=== PATIENT | female | born 1965 | race Caucasian/White ===

== ENCOUNTER 2024-03-01 04:11 | Inpatient (IN) ==
--- NOTE | 2024-03-01 04:38 | Emergency Department Note ---
Impression & Plan Right ureteral stone ED Provider Note Provider: Santiago Domínguez MD DATE OF SERVICE: 02/29/2024 CHIEF COMPLAINT: Right flank pain kidney stone HISTORY OF PRESENT ILLNESS: Patient is a 58-year-old female history of GERD and kidney stones requiring prior stenting presenting here very early this morning reporting increasing pain overnight in the right flank region little bit of nausea. Patient states she knows she has a 6 mm kidney stone was initially diagnosed on CAT scan at [facility] this past . Seen here yesterday morning for ongoing pain. Ureteral stone present with some hydronephrosis. Is completing course of antibiotics. Saw urology team in consultation but the patient elected to go home and see if it would pass and follow-up for possible outpatient procedure. States at 11 PM last night pain began to worsen took oxycodone to Tylenol pain worsened through the night she became somewhat sweaty and nauseous but did not fall or syncopized. Reports took an additional oxycodone around 3 AM pain was still fairly severe so with her elected to come here for further pain control and likely need for urological intervention rather than waiting in the outpatient setting. Patient states at the moment the pain has moderated some she is not nearly as nauseous. PAST MEDICAL HISTORY: As noted above MEDICATIONS: Reviewed home medications FMH: Kidney stones SOCIAL HISTORY: PHYSICAL EXAM: GENERAL: alert and oriented in no acute distress on stretcher Head: normocephalic and atraumatic EYES: No injection, discharge or icterus. NECK: Trachea midline. ENT: Mucous membranes pink and moist. LUNGS: Airway patent. No retractions. Breath sounds clear HEART: Regular rate and rhythm. No chest wall tenderness ABDOMEN: Soft and non-tender, without guarding or rebound. No masses appreciable SKIN: Acyanotic, warm, dry, without rashes EXTREMITIES: Without swelling, tenderness or deformity NEUROLOGICAL: No focal deficits. No aphasia. No facial droop or slurred speech. Ambulatory. Patient's laboratory studies and imaging reviewed. Differential includes Renal colic, UTI, appendicitis, diverticulitis, mesenteric ischemia, aortic pathology, infections, inflammatory bowel disease, PUD, biliary pathology, as well as other pathologies. Review KUB per my interpretation: IMPRESSION/MEDICAL DECISION MAKING: Patient with a history of kidney stones requiring intervention recently diagnosed with 6 mm right-sided kidney stone. Has been attempting outpatient treatment without much success. Using Tylenol oxycodone at home but pain is still fluctuating. Declined admission for urological procedure yesterday at the hospital and wanted to see if she could pass it and follow-up closely in the outpatient setting for possible procedure. Given worsening pain overnight she comes back for pain control and states she is now at the point where she does not think she is able to manage this at home and feels she needs to stay and have urology evaluate her for possible stenting/intervention today. Given a bit of Toradol and Zofran and IV fluid here initially. Basic blood work checked. No significant leukocytosis. No evidence of acute UTI on UA. Given recent CT and ultrasound will avoid repeating those at this point but did order a KUB. Does appear to show unchanged position compared to KUB yesterday of the right-sided stone. Doubt this is obstruction appendicitis, cholecystitis, diverticulitis, or visceral perforation. Has been taking some Keflex but UA not impressive for infection no believe this is infected stone sepsis or requiring IV antibiotics at this point. Discussed with the patient maintaining an n.p.o. status. She states while her pain is not too bad at this point given that she is failing outpatient treatment wants to be admitted for urological intervention. Will reach out to the hospitalist team. DIAGNOSIS: Right-sided kidney stone DISPOSITION: Hospitalist will evaluate Patient was agreeable with this plan. Past Med/Surg History Problem List (Updated 03/01/24 @ 05:22 by Santiago Domínguez M.D.) Right ureteral stone (Acute) Wears hearing aid in both ears Phonak Audeo M50R disp 08/2019 Adenomatous polyps Multiple rib fractures Acid reflux disease Nephrolithiasis Essential hypertension (Chronic) Allergic rhinitis (Chronic) Hyperlipidemia (Chronic) Rosacea (Chronic) Sensorineural hearing loss (SNHL) of both ears (Chronic) Mild to moderate mid to high-frequency SNHL AU Tinnitus (Chronic) Medical History (Updated 03/01/24 @ 05:22 by Santiago Domínguez M.D.) Left ureteral stone Kidney stones Hx of squamous cell carcinoma (2013) Sleep apnea cpap at night Obesity taking metformin for weightloss Hx of colonic polyps Hyperlipidemia monitoring - "borderline" Tinnitus chronic Sensorineural hearing loss Phonak Audeo M50R disp 08/2019 GERD (gastroesophageal reflux disease) Hx pulmonary embolism (07/2016) r/t HRT - no problems since. Hypertension Surgical History Hx of squamous cell carcinoma excision (2013) Hx of cystoscopy (06/2018) with stone basketing History of lithotripsy (05/06/18) Laser lith[facility]ri[facility] at [facility] History of oophorectomy B/L History of hysterectomy History of tonsillectomy History of tooth extraction History of esophagogastroduodenoscopy (EGD) (10/11/18) History of colonoscopy 04/28/23 repeat 5yrs Family History Grandfather (Maternal) Family hx of colon cancer Father Coronary heart disease Hyperlipidemia Hypertension Cardiac disorder Mother Hypertension Hyperlipidemia Brother FHx: deafness or hearing loss Social History Smoking Status: Never smoker Second Hand Exposure: Yes ( A CHILD); Do You Dip or Chew Tobacco: No; Hx Alcohol Use: No Hx Substance Use: No Preferred Language: Telugu Communication Ability: Effective Furnace Operator And Tender Required: No Beliefs That Will Affect Care: None Current Living Situation: Spouse Feels Safe at Home: Yes Assistive Devices: CPAP, Glasses and Hearing Aid - Bilateral Allergies Allergies Allergy/AdvReac Type Severity Reaction Status Date / Time latex Allergy Mild localized Verified 02/28/24 10:21 Rash Home Meds Home Medications Medication Instructions Recorded Confirmed losartan 50 mg tablet 50 mg PO QAM 12/29/23 03/01/24 metformin 500 mg 24 hr 500 mg PO TID weightloss 02/08/24 03/01/24 tablet,extended release (gastric retention) oxycodone 5 mg tablet 5 mg PO Q6H PRN Pain 02/28/24 03/01/24 tamsulosin 0.4 mg capsule (Flomax) 0.4 mg PO DAILY 02/28/24 03/01/24 acetaminophen 500 mg tablet 500 mg PO Q6H PRN pain/fever 02/29/24 03/01/24 Previous Rx's Medication Instructions Recorded omeprazole 40 mg capsule,delayed 40 mg PO BID #180 caps 08/10/23 release cephalexin 500 mg capsule 500 mg PO QID 7 days #28 caps 02/25/24 ondansetron 4 mg disintegrating 4 mg PO Q8H PRN nausea and 02/25/24 tablet vomiting #9 tabs Results & Data (ED) Vital Signs Vital Signs - 24 hr 03/01/24 04:14 03/01/24 05:12 Temperature 36.6 C Temperature Source Temporal Artery Scan Pulse Rate 86 Pulse Rate [Finger] 77 Respiratory Rate 18 16 Respiratory Effort / Characteristics Non-Labored Respiratory Depth Normal Blood Pressure 173/95 H Blood Pressure [Right Arm] 146/80 H Blood Pressure Mean 121 Blood Pressure Mean [Right Arm] 102 Pulse Oximetry 95 99 Oxygen Delivery Method Room Air Room Air Sepsis Recent Fever Within 48 Hours No Sepsis New/Unexplained Change in Mental Status N/A Sepsis Action Taken by Nursing No Action Required Laboratory Data 03/01/24 04:36 03/01/24 04:36 Lab Results 03/01/24 03/01/24 Range/Units 04:26 04:36 WBC 7.35 (4.8-10.8) K/ul RBC 4.26 (4.20-5.40) M/uL Hgb 11.6 L (12.0-16.0) g/dl Hct 35.7 L (37.0-47.0) % MCV 83.8 (80.0-100.0) fL MCH 27.2 (25.0-34.0) pg MCHC 32.5 (32.0-36.0) g/dL RDW Std Deviation 43.8 (36.4-46.3) fL RDW Coeff of Jean 14.4 (11.5-14.5) % Plt Count 310 (130-400) K/uL MPV 9.7 (9.4-12.4) fL Immature Gran % (Auto) 0.1 % Neut % (Auto) 63.8 % Lymph % (Auto) 23.9 % [place] % (Auto) 9.0 % Eos % (Auto) 2.7 % Baso % (Auto) 0.5 % Neut # (Auto) 4.68 (1.40-6.50) K/uL Lymph # (Auto) 1.76 (1.20-3.40) K/uL [place] # (Auto) 0.66 H (0.11-0.59) K/uL Eos # (Auto) 0.20 (0.00-0.50) K/uL Baso # (Auto) 0.04 (0.00-0.20) K/uL Immature Gran # (Auto) 0.01 (0.01-0.20) K/uL Sodium 140 (136-145) mmol/L Potassium 3.9 (3.5-5.1) mmol/L Chloride 105 (98-107) mmol/L Carbon Dioxide 26 (21-32) mmol/L Anion Gap 9 (3-11) BUN 26 H (6-23) mg/dl Creatinine 1.40 H D (0.6-1.2) mg/dl Est Cr Clr Drug Dosing 45.8 ml/min Est GFR ( Amer) 47.2 ml/min Est GFR (Non-Af Amer) 40.7 ml/min BUN/Creatinine Ratio 18.6 (10-20) Glucose 95 (70-99(Fasting)) mg/dl Calcium 9.5 (8.6-10.3) mg/dl Total Bilirubin 0.5 (0.2-1.0) mg/dl AST 23 (13-39) U/L ALT 26 (7-52) U/L Alkaline Phosphatase 83 (34-104) U/L Total Protein 6.9 (6.0-8.3) gm/dl Albumin 4.3 (3.4-5.0) gm/dl Globulin 2.6 (2.5-4.0) gm/dl Albumin/Globulin Ratio 1.7 (0.9-2) Lipase 17 (11-82) U/L Urine Color Yellow Urine Appearance Clear (Clear) Urine pH 6.5 (4.5-7.5) Ur Specific [place] 1.011 (1.000-1.030) Urine Protein Negative (Negative) Urine Glucose (UA) Negative (Negative) Urine Ketones Negative (Negative) Urine Blood Negative (Negative) Urine Nitrite Negative (Negative) Urine Bilirubin Negative (Negative) Urine Urobilinogen Negative (Negative) Ur Leukocyte Esterase Trace H (Negative) Urine WBC (Auto) 0-5 (0-5) /hpf Urine RBC (Auto) 0-2 (0-2) /hpf U Hyaline Cast (Auto) 0-2 (0-2) /lpf U Epithel Cells (Auto) 0-2 (0-2) /hpf Urine Bacteria (Auto) None Seen (None Seen) Administered Medications Discontinued Medications Lactated Ringer's (Lr) 500 mls @ 999 mls/hr IV .Q31M ONE Stop: 03/01/24 05:00 Last Infusion: 03/01/24 05:21 Dose: Infused Documented By: Admin: 03/01/24 04:45 Dose: 999 mls/hr Documented By: Ketorolac Tromethamine (Ketorolac Tromethamine 15 Mg/Ml Vial) 10 mg IV NOW ONE Stop: 03/01/24 04:31 Last Admin: 03/01/24 04:49 Dose: 10 mg Documented By: Ondansetron HCl (Ondansetron Inj 2 Mg/Ml 2 Ml Vial) 4 mg IV NOW STA Stop: 03/01/24 04:31 Last Admin: 03/01/24 04:49 Dose: 4 mg Documented By: Discharge Plan Visit Data Chief Complaint: Kidney Stone Stated Complaint: KIDNEY STONE ED Provider: Santiago Domínguez Discharge Problem: Right ureteral stone Patient Disposition: Being Evaluated by Hospitalist Forms Stand Alone Forms: [facility] Prescriptions Prescriptions: No Action cephalexin 500 mg capsule 500 mg PO QID 7 Days Qty: 28 0RF Rx Instructions: [facility] ER 02/24/24 x7 day supply ondansetron 4 mg tablet,disintegrating 4 mg PO Q8H PRN (Reason: nausea and vomiting) Qty: 9 0RF Rx Instructions: [facility] ER 02/24/24 omeprazole 40 mg capsule,delayed release(DR/EC) 40 mg PO BID Qty: 180 3RF metformin 500 mg tablet,ER cinda.retention 24 hr 500 mg PO TID oxycodone 5 mg tablet 5 mg PO Q6H PRN (Reason: Pain) tamsulosin [Flomax] 0.4 mg capsule 0.4 mg PO DAILY losartan 50 mg tablet 50 mg PO QAM Rx Instructions: replaces lisinopril acetaminophen [Tylenol Ex Str Arthritis Pain] 500 mg Tablet 500 mg PO Q6H PRN (Reason: pain/fever) Referrals Referrals: Oseas Ford MD [Primary Care Provider] -
[2024-03-01] MEDS: LACTATED RINGER'S 500 ML IV ONE (04:45)
[2024-03-01] MEDS: KETOROLAC TROMETHAMINE 15 MG/ML VIAL IV ONE (04:49)
[2024-03-01] MEDS: ONDANSETRON INJ 2 MG/ML 2 ML VIAL IV STA (04:49)
[2024-03-01 04:52] LABS: Appearance Urine Clear (Clear); Bacteria Urine Automated None Seen (None Seen); Bilirubin Urine Negative (Negative); Blood Urine Negative (Negative); Cast Urine Automated 0-2 /lpf (0-2); Color Urine Yellow; Epithelial Cell Urine Auto 0-2 /hpf (0-2); Glucose Urine UA Negative (Negative); Ketones Urine Negative (Negative); Leukocyte Esterase Urine Trace (Negative); Nitrite Urine Negative (Negative); Protein Urine Negative (Negative); RBC Urine Automated 0-2 /hpf (0-2); Specific Gravity Urine 1.011 (1.000-1.030); Urobilinogen Urine Negative (Negative); WBC Urine Automated 0-5 /hpf (0-5); pH Urine 6.5 (4.5-7.5)
[2024-03-01 04:56] LABS: Basophils # (auto) 0.04 K/uL (0.00-0.20); Basophils % (auto) 0.5 %; Eosinophils % (auto) 2.7 %; Hematocrit (blood only) 35.7 % (37.0-47.0); Hemoglobin 11.6 g/dl (12.0-16.0); Immature Granulocytes # (auto) 0.01 K/uL (0.01-0.20); Immature Granulocytes % (auto) 0.1 %; Lymphocytes # (auto) 1.76 K/uL (1.20-3.40); Lymphocytes % (auto) 23.9 %; Mean Corpuscular Hemoglobin 27.2 pg (25.0-34.0); Mean Corpuscular Hgb Conc 32.5 g/dL (32.0-36.0); Mean Corpuscular Volume 83.8 fL (80.0-100.0); Mean Platelet Volume 9.7 fL (9.4-12.4); Monocytes # (auto) 0.66 K/uL (0.11-0.59); Neutrophils # (auto) 4.68 K/uL (1.40-6.50); Neutrophils % (auto) 63.8 %; Platelet Count 310 K/uL (130-400); RDW Coefficient of Variation 14.4 % (11.5-14.5); RDW Standard Deviation 43.8 fL (36.4-46.3); Red Blood Count 4.26 M/uL (4.20-5.40); White Blood Count 7.35 K/ul (4.8-10.8)
[2024-03-01 05:08] LABS: Albumin Globulin Ratio 1.7 (0.9-2); Albumin Level 4.3 gm/dl (3.4-5.0); BUN Creatinine Ratio 18.6 (10-20); Bilirubin,Total 0.5 mg/dl (0.2-1.0); Calcium 9.5 mg/dl (8.6-10.3); Creatinine Clr Calc Pharmacy 45.8 ml/min; Est GFR (African American) 47.2 ml/min; Est GFR (Non-African American) 40.7 ml/min; Globulin 2.6 gm/dl (2.5-4.0); Potassium 3.9 mmol/L (3.5-5.1); Total Protein 6.9 gm/dl (6.0-8.3)
[2024-03-01] MEDS ORDERED: HYDROmorphone INJ 0.5 MG/0.5 ML SYR IV PRN ×2 (05:51)
[2024-03-01] MEDS ORDERED: ONDANSETRON INJ 2 MG/ML 2 ML VIAL IV PRN ×2 (05:51→12:27)
[2024-03-01] MEDS ORDERED: ACETAMINOPHEN 1,000 MG/100 ML VIAL IV PRN (05:51)
--- NOTE | 2024-03-01 06:01 | History & Physical Report ---
Date of Service March 01, 2024 Assessment & Plan (1) Right ureteral stone: (2) Hydronephrosis, right: (3) Acid reflux disease: (4) Essential hypertension: (5) Obesity: (6) Sleep apnea: Plan 6 mm mid right ureteral stone/mild right hydronephrosis- Follow urine culture sensitivity NPO Acetaminophen 1 g IV every 8 hours as needed for mild pain or fever Dilaudid 0.25 mg IV every 3 hours as needed for moderate pain Dilaudid 0.5 mg IV every 3 hours as needed for severe pain Zofran 4 mg IV every 4 hours as needed Pantoprazole 40 mg IV daily Ceftriaxone 2 g IV daily NSS at 80 mL/h x 2 L Resume tamsulosin when taking p.o. Consult urology Acute kidney injury- Creatinine 1.40, with base 0.7 Hold further NSAIDs and losartan IV fluids as noted above Recheck laboratories in a.m. Hypertension- Hold losartan Hydralazine 10 mg IV every 4 hours as needed for systolic blood pressure greater than 160 GERD- Change omeprazole 40 mg p.o. twice daily to pantoprazole 40 mg IV daily Obesity- Hold metformin 500 mg p.o. 3 times daily, the patient thinks her weight loss Sleep apnea- CPAP at bedtime History of Present Illness Chief Complaint: The patient presents to the emergency department with a worsening of right flank pain, nausea without vomiting, that initially began 6 days ago, when she presented to [facility] emergency department, and was diagnosed with a 6 mm right-sided kidney stone. She was discharged home, and had been taking Tylenol and oxycodone along with Zofran. She presented to the emergency department at [facility] on 02/28 due to worsening symptoms. She received IV Toradol, and IV Dilaudid, along with IV fluids. She was seen by urology while in the emergency department, and plans were for patient to continue outpatient management, and arrangements were being made to have cystoscopy, right ureteroscopy, laser lithotripsy and right ureteral stent placement as an out patient. She was discharged from the ED on ibuprofen, tamsulosin, Zofran and Keflex. Due to worsening symptoms, the patient presents to the emergency department early in the morning of 03/01, and will be admitted to the [facility] hospitalist service with consult to urology Primary Care Provider: Oseas Ford MD The patient is a 58-year-old female with a past medical history including GERD, diabetes mellitus, hypertension, and 5 previous kidney stones. She has had a kidney stone on the left requiring a previous ureteral stent. She presents to the emergency department at [facility] with symptoms and history as noted above. Allergies Allergy/AdvReac Type Severity Reaction Status Date / Time latex Allergy Mild localized Verified 02/28/24 10:21 Rash Home Medications Medication Instructions Recorded Confirmed Type omeprazole 40 mg capsule,delayed 40 mg PO BID #180 caps 08/10/23 03/01/24 Rx release losartan 50 mg tablet 50 mg PO QAM 12/29/23 03/01/24 History metformin 500 mg 24 hr 500 mg PO TID weightloss 02/08/24 03/01/24 History tablet,extended release (gastric retention) cephalexin 500 mg capsule 500 mg PO QID 7 days #28 caps 02/25/24 03/01/24 Rx ondansetron 4 mg disintegrating 4 mg PO Q8H PRN nausea and 02/25/24 03/01/24 Rx tablet vomiting #9 tabs oxycodone 5 mg tablet 5 mg PO Q6H PRN Pain 02/28/24 03/01/24 History tamsulosin 0.4 mg capsule (Flomax) 0.4 mg PO DAILY 02/28/24 03/01/24 History acetaminophen 500 mg tablet 500 mg PO Q6H PRN pain/fever 02/29/24 03/01/24 History Past Med/Surg History Problem List (Updated 03/01/24 @ 06:16 by Familia Tariq MD) Sleep apnea cpap at night Obesity taking metformin for weightloss Hydronephrosis, right Right ureteral stone (Acute) Wears hearing aid in both ears Phonak Audeo M50R disp 08/2019 Adenomatous polyps Multiple rib fractures Acid reflux disease Nephrolithiasis Essential hypertension (Chronic) Allergic rhinitis (Chronic) Hyperlipidemia (Chronic) Rosacea (Chronic) Sensorineural hearing loss (SNHL) of both ears (Chronic) Mild to moderate mid to high-frequency SNHL AU Tinnitus (Chronic) Medical History (Updated 03/01/24 @ 06:16 by Familia Tariq MD) Left ureteral stone Kidney stones Hx of squamous cell carcinoma (2013) Hx of colonic polyps Hyperlipidemia monitoring - "borderline" Tinnitus chronic Sensorineural hearing loss Rishi Hines M50R disp 08/2019 GERD (gastroesophageal reflux disease) Hx pulmonary embolism (07/2016) r/t HRT - no problems since. Hypertension Surgical History Hx of squamous cell carcinoma excision (2013) Hx of cystoscopy (06/2018) with stone basketing History of lithotripsy (05/06/18) Laser lithotripsy at [facility] History of oophorectomy B/L History of hysterectomy History of tonsillectomy History of tooth extraction History of esophagogastroduodenoscopy (EGD) (10/11/18) History of colonoscopy 04/28/23 repeat 5yrs Family History Grandfather (Maternal) Family hx of colon cancer Father Coronary heart disease Hyperlipidemia Hypertension Cardiac disorder Mother Hypertension Hyperlipidemia Brother FHx: deafness or hearing loss Social History Smoking Status: Never smoker Second Hand Exposure: Yes ( A CHILD); Do You Dip or Chew Tobacco: No; Hx Alcohol Use: No Hx Substance Use: No Preferred Language: Mohawk Communication Ability: Effective Shape Carver Required: No Beliefs That Will Affect Care: None Current Living Situation: Spouse Feels Safe at Home: Yes Assistive Devices: CPAP, Glasses and Hearing Aid - Bilateral Review of Systems Review of Systems: The patient denies chest pain, palpitations, shortness of breath, dyspnea on exertion, cough, lower extremity swelling, sore throat, fevers, chills, sweats, vomiting, diarrhea, blood in urine or stool, lightheadedness, dizziness, headache, memory loss, loss of consciousness, rash, abnormal bruising, imbalance, focal or generalized weakness, numbness or tingling in arms or legs, generalized arthralgias or myalgias, neck pain, or night sweats. The review of systems is otherwise negative other than for that already noted above, and at least 10 systems have been reviewed. Physical Exam Physical Exam: The patient is awake, alert and oriented 3, well developed and well nourished, normocephalic and atraumatic, lying in bed and in no acute distress. HEENT--PERRL, EOMI, mucous membranes and oropharynx mildly dry. Neck--supple. No JVD. No bruits. Thyroid normal, trachea midline, no adenopathy. Heart--normal S1 and S2. No murmurs, rubs or gallops. Lungs--clear bilaterally, no respiratory distress, no accessory muscle use. Abdomen--normal bowel sounds and soft. Nontender. Nondistended, no hernias or masses, no organomegaly. Extremities--no cyanosis or clubbing. No edema. Dermatologic--normal skin turgor, normal color, no abnormal lymph nodes, no rash. Neurologic--cranial nerves II through XII grossly intact. Rheumatologic--normal range of motion. Psychiatric--normal affect. Results & Data Results & Data Vital Signs (Past 12 Hours) Vital Signs Temp Pulse Pulse Resp BP BP Pulse Ox 03/01/24 05:12 77 16 146/80 H 99 03/01/24 04:14 36.6 C 86 18 173/95 H 95 O2 Del Method 03/01/24 05:12 Room Air 03/01/24 04:14 Room Air Laboratory Results Laboratory Results WBC 7.35 K/ul (4.8-10.8) 03/01/24 04:36 RBC 4.26 M/uL (4.20-5.40) 03/01/24 04:36 Hgb 11.6 g/dl (12.0-16.0) L 03/01/24 04:36 Hct 35.7 % (37.0-47.0) L 03/01/24 04:36 MCV 83.8 fL (80.0-100.0) 03/01/24 04:36 MCH 27.2 pg (25.0-34.0) 03/01/24 04:36 MCHC 32.5 g/dL (32.0-36.0) 03/01/24 04:36 RDW Std Deviation 43.8 fL (36.4-46.3) 03/01/24 04:36 RDW Coeff of Jean 14.4 % (11.5-14.5) 03/01/24 04:36 Plt Count 310 K/uL (130-400) 03/01/24 04:36 MPV 9.7 fL (9.4-12.4) 03/01/24 04:36 Immature Gran % (Auto) 0.1 % 03/01/24 04:36 Neut % (Auto) 63.8 % 03/01/24 04:36 Lymph % (Auto) 23.9 % 03/01/24 04:36 [place] % (Auto) 9.0 % 03/01/24 04:36 Eos % (Auto) 2.7 % 03/01/24 04:36 Baso % (Auto) 0.5 % 03/01/24 04:36 Neut # (Auto) 4.68 K/uL (1.40-6.50) 03/01/24 04:36 Lymph # (Auto) 1.76 K/uL (1.20-3.40) 03/01/24 04:36 [place] # (Auto) 0.66 K/uL (0.11-0.59) H 03/01/24 04:36 Eos # (Auto) 0.20 K/uL (0.00-0.50) 03/01/24 04:36 Baso # (Auto) 0.04 K/uL (0.00-0.20) 03/01/24 04:36 Immature Gran # (Auto) 0.01 K/uL (0.01-0.20) 03/01/24 04:36 Sodium 140 mmol/L (136-145) 03/01/24 04:36 Potassium 3.9 mmol/L (3.5-5.1) 03/01/24 04:36 Chloride 105 mmol/L (98-107) 03/01/24 04:36 Carbon Dioxide 26 mmol/L (21-32) 03/01/24 04:36 Anion Gap 9 (3-11) 03/01/24 04:36 BUN 26 mg/dl (6-23) H 03/01/24 04:36 Creatinine 1.40 mg/dl (0.6-1.2) H D 03/01/24 04:36 Est Cr Clr Drug Dosing 45.8 ml/min 03/01/24 04:36 Est GFR ( Amer) 47.2 ml/min 03/01/24 04:36 Est GFR (Non-Af Amer) 40.7 ml/min 03/01/24 04:36 BUN/Creatinine Ratio 18.6 (10-20) 03/01/24 04:36 Glucose 95 mg/dl (70-99(Fasting)) 03/01/24 04:36 Calcium 9.5 mg/dl (8.6-10.3) 03/01/24 04:36 Total Bilirubin 0.5 mg/dl (0.2-1.0) 03/01/24 04:36 AST 23 U/L (13-39) 03/01/24 04:36 ALT 26 U/L (7-52) 03/01/24 04:36 Alkaline Phosphatase 83 U/L (34-104) 03/01/24 04:36 Total Protein 6.9 gm/dl (6.0-8.3) 03/01/24 04:36 Albumin 4.3 gm/dl (3.4-5.0) 03/01/24 04:36 Globulin 2.6 gm/dl (2.5-4.0) 03/01/24 04:36 Albumin/Globulin Ratio 1.7 (0.9-2) 03/01/24 04:36 Lipase 17 U/L (11-82) 03/01/24 04:36 Urine Color Yellow 03/01/24 04:26 Urine Appearance Clear (Clear) 03/01/24 04:26 Urine pH 6.5 (4.5-7.5) 03/01/24 04:26 Ur Specific [place] 1.011 (1.000-1.030) 03/01/24 04:26 Urine Protein Negative (Negative) 03/01/24 04:26 Urine Glucose (UA) Negative (Negative) 03/01/24 04:26 Urine Ketones Negative (Negative) 03/01/24 04:26 Urine Blood Negative (Negative) 03/01/24 04:26 Urine Nitrite Negative (Negative) 03/01/24 04:26 Urine Bilirubin Negative (Negative) 03/01/24 04:26 Urine Urobilinogen Negative (Negative) 03/01/24 04:26 Ur Leukocyte Esterase Trace (Negative) H 03/01/24 04:26 Urine WBC (Auto) 0-5 /hpf (0-5) 03/01/24 04:26 Urine RBC (Auto) 0-2 /hpf (0-2) 03/01/24 04:26 U Hyaline Cast (Auto) 0-2 /lpf (0-2) 03/01/24 04:26 U Epithel Cells (Auto) 0-2 /hpf (0-2) 03/01/24 04:26 Urine Bacteria (Auto) None Seen (None Seen) 03/01/24 04:26 Code Status & VTE Plan Code Status Full code VTE Prophylaxis Plan VTE Prophylaxis will be ordered: Yes PG Care Time/CCT Total # of Minutes Spent Total Time Spent with Patient: Total time spent is greater than 50% in coordination of care (as documented) at patient's floor/unit and/or counseling patient: Coding Level of Care Code 93001 INT INP/OBS CARE 3/75MIN Diagnoses Right ureteral stone N20.1 Hydronephrosis, right N13.30 Gastroesophageal reflux disease without esophagitis K21.9 Esophagitis presence: without esophagitis Essential hypertension I10 Class 1 obesity due to excess calories with serious comorbidity and body mass index (BMI) of 32.0 to 32.9 in adult E66.09; Z68.32 Obesity type: due to excess calories Obesity classification: adult class 1 (BMI 30 - 34.9) Serious obesity comorbidity presence: with serious comorbidity Body mass index: BMI 32.0-32.9 Sleep apnea G47.30 (3) Acid reflux disease Esophagitis presence: without esophagitis Qualified Code(s): K21.9 - Gastro- esophageal reflux disease without esophagitis (5) Obesity Obesity type: due to excess calories Obesity classification: adult class 1 (BMI 30 - 34.9) Serious obesity comorbidity presence: with serious comorbidity Body mass index: BMI 32.0-32.9 Qualified Code(s): E66.09 - Other obesity due to excess calories; Z68.32 - Body mass index [BMI] 32.0-32.9, adult
[2024-03-01] MEDS ORDERED: hydrALAZINE HCL 20 MG/ML VIAL IV PRN (06:19)
[2024-03-01] MEDS: PANTOprazole 40 MG in SYRINGE 0 ML IV ONE (06:21)
[2024-03-01] MEDS: cefTRIAXone SODIUM 2,000 MG/50 ML BAG IV STA (06:21)
[2024-03-01] MEDS: SODIUM CHLORIDE 0.9% 1,000 ML IV SCH (06:24)
--- NOTE | 2024-03-01 06:49 | XRay Report ---
KUB CLINICAL HISTORY: Right flank pain, kidney stone COMPARISON STUDY: KUB and renal ultrasound February 29, 2024. CT of the pelvis February 24, 2024. FINDINGS: There has been slight distal migration of a 6 mm proximal right ureteral calculus now at th e L4 level. No additional urinary calculi are present. There is no evidence for a bowel obstruction. IMPRESSION: Slight distal migration of a 6 mm proximal right ureteral calculus, now at the L4 level. ACT 112: Negative or not required by law. Electronically signed by: Herbert Childers M.D. 03/01/2024 6:47 AM
[2024-03-01] MEDS ORDERED: CARBOHYDRATES FOR HYPOGLYCEMIA PO PRN (09:49)
[2024-03-01] MEDS ORDERED: bisacodyL 10 MG SUPP PR PRN (09:49)
[2024-03-01] MEDS ORDERED: DEXTROSE 50% 50 ML SYRINGE IV PRN (09:49)
[2024-03-01] MEDS ORDERED: GLUCOSE 40% GEL 15 GM TUBE PO PRN (09:49)
[2024-03-01] MEDS ORDERED: GLUCOSE 10 TAB/TUBE PO PRN (09:49)
[2024-03-01] MEDS ORDERED: GLUCAGON FOR INJ 1 MG VIAL SQ PRN (09:49)
--- NOTE | 2024-03-01 09:59 | Urology Consultation ---
<Statement entered by Gamaliel Pritchard MD - 03/01/24 11:57> I have seen and discussed Ms Isidro's case with ЮЛИЯ Haider and agree with the above documentation. She has a right ureteral stone with poorly controlled pain at home. Due to repeat presentations to the emergency department, we will plan on cystoscopy, right retrograde pyelogram and right ureteral stent placement today. We discussed risks and benefits including risk of bleeding, infection, injury to urinary tract, need for additional procedures, inability to place stent. She expressed understanding and would like to proceed. -Gamaliel Pritchard MD. Date of Consultation March 01, 2024 Assessment & Plan (1) Right ureteral stone: (2) Hydronephrosis, right: 58 yo/F admitted for right flank pain secondary to an obstructing right ureteral calculus. She is afebrile and hemodynamically stable Labs reviewed- creatinine 1.40, WBC 7.35, Hgb 11.6 UA was not suspicious for infection Patient currently comfortable Given 3rd ER presentation for pain secondary to her right ureteral stone, we discussed surgical intervention with right ureteral stent placement She would like to proceed with intervention today Plan for cystoscopy and right ureteral stent placement Risks and benefits of procedure to be reviewed with patient by Dr. Pritchard Keep NPO for procedure She received Ceftriaxone this morning Continue supportive care and management per hospital team History of Present Illness Reason for Consultation: Right ureteral stone Attending Physician: Familia Tariq MD History of Present Illness This is a 58-year-old female with history of nephrolithiasis and recently diagnosed 6 mm obstructing right ureteral stone who returned to the emergency department today with worsening right flank pain. Patient was seen in the emergency department yesterday. She was evaluated by our service and her pain had largely resolved. She elected to go home and set up outpatient surgery, which was scheduled for next week. She was discharged to home yesterday afternoon. Patient seen and examined at bedside. present. She reports that she was doing well at home until around 11 pm. She took oxycodone and Tylenol and went back to bed, but was awakened by worsening pain around 1:30 am. Currently feeling comfortable. Denies fever or chills. No nausea or vomiting. Voiding spontaneously. She is NPO, last ate/drank yesterday around 8 pm. She was afebrile and hemodynamically stable in the ED. Labs showed creatinine 1.4, WBC 7.35, and Hgb 11.6. UA showed trace LE, otherwise unremarkable. KUB imaging showed slight distal migration of a 6 mm proximal right ureteral calculus, now at the L4 level. ED course: IV fluids, ondansetron, and Ketorolac. Allergies Allergy/AdvReac Type Severity Reaction Status Date / Time latex Allergy Mild localized Verified 02/28/24 10:21 Rash Home Medications Medication Instructions Recorded Confirmed Type omeprazole 40 mg capsule,delayed 40 mg PO BID #180 caps 08/10/23 03/01/24 Rx release losartan 50 mg tablet 50 mg PO QAM 12/29/23 03/01/24 History metformin 500 mg 24 hr 500 mg PO TID weightloss 02/08/24 03/01/24 History tablet,extended release (gastric retention) cephalexin 500 mg capsule 500 mg PO QID 7 days #28 caps 02/25/24 03/01/24 Rx ondansetron 4 mg disintegrating 4 mg PO Q8H PRN nausea and 02/25/24 03/01/24 Rx tablet vomiting #9 tabs oxycodone 5 mg tablet 5 mg PO Q6H PRN Pain 02/28/24 03/01/24 History tamsulosin 0.4 mg capsule (Flomax) 0.4 mg PO DAILY 02/28/24 03/01/24 History acetaminophen 500 mg tablet 500 mg PO Q6H PRN pain/fever 02/29/24 03/01/24 History Patient History Medical History Left ureteral stone Kidney stones Hx of squamous cell carcinoma (2013) Hx of colonic polyps Hyperlipidemia monitoring - "borderline" Tinnitus chronic Sensorineural hearing loss Phonak Audeo M50R disp 08/2019 GERD (gastroesophageal reflux disease) Hx pulmonary embolism (07/2016) r/t HRT - no problems since. Hypertension Surgical History Hx of squamous cell carcinoma excision (2013) Hx of cystoscopy (06/2018) with stone basketing History of lithotripsy (05/06/18) Laser lithotripsy at [facility] History of oophorectomy B/L History of hysterectomy History of tonsillectomy History of tooth extraction History of esophagogastroduodenoscopy (EGD) (10/11/18) History of colonoscopy 04/28/23 repeat 5yrs Family History Grandfather (Maternal) Family hx of colon cancer Father Coronary heart disease Hyperlipidemia Hypertension Cardiac disorder Mother Hypertension Hyperlipidemia Brother FHx: deafness or hearing loss Social History Smoking Status: Never smoker Second Hand Exposure: Yes ( A CHILD); Do You Dip or Chew Tobacco: No; Hx Alcohol Use: No Hx Substance Use: No Preferred Language: Nicaraguan Communication Ability: Effective Golf Course Equipment Operator Required: No Beliefs That Will Affect Care: None Current Living Situation: Spouse Feels Safe at Home: Yes Assistive Devices: None Review of Systems Review of Systems: All systems reviewed & are unremarkable except as noted in HPI & below Physical Exam Constitutional: well developed and well nourished; no acute distress Respiratory: normal respiratory effort; no respiratory distress and no labored breathing Gastrointestinal (Abdomen): Inspection/Auscultation: abdomen normal to inspection Musculoskeletal: Head/Neck/Chest: normocephalic Neurologic: moves all extremities and awake Psychiatric: Orientation: alert and oriented x 3 Results & Data Vital Signs (Past 12 Hours) Vital Signs Temp Pulse Pulse Resp BP BP Pulse Ox 03/01/24 09:50 36.6 C 67 16 112/84 96 03/01/24 09:25 03/01/24 09:16 73 18 129/79 95 03/01/24 07:00 70 18 141/93 H 93 03/01/24 05:12 77 16 146/80 H 99 03/01/24 04:14 36.6 C 86 18 173/95 H 95 O2 Del Method 03/01/24 09:50 Room Air 03/01/24 09:25 Room Air 03/01/24 09:16 Room Air 03/01/24 07:00 Room Air 03/01/24 05:12 Room Air 03/01/24 04:14 Room Air PG Care Time/CCT Total # of Minutes Spent Total Time Spent with Patient: Total time spent is greater than 50% in coordination of care (as documented) at patient's floor/unit and/or counseling patient: Coding Level of Care Code 05945 IN/OBS CONSULT LVL 4,60M Diagnoses Right ureteral stone N20.1 Hydronephrosis, right N13.30
[2024-03-01] MEDS: INSULIN ASPART PER UNIT CHARGE SC SCH (10:43)
[2024-03-01] MEDS: LACTATED RINGER'S 1,000 ML IV SCH (11:26)
[2024-03-01] MEDS ORDERED: PROPOFOL IV EMULSION 10 MG/ML 20 ML VIAL IV ONE (11:55)
[2024-03-01] MEDS ORDERED: LIDOCAINE 2% 2 ML VIAL/AMP(20MG/ML) INFIL ONE (11:55)
[2024-03-01] MEDS ORDERED: fentaNYL citrate PF 100 MCG/2 ML VIAL ONE (11:56)
[2024-03-01] MEDS ORDERED: MIDAZOLAM HCL 1 MG/ML 2ML VIAL ONE (11:56)
--- NOTE | 2024-03-01 12:21 | Anesthesiology Consultation ---
Date of Service March 01, 2024 Assessment & Plan Chart Review Chart Review: Acceptable Risk for Surgery and Patient NOT seen in Pre Admission Testing Consults Requested none History Surgery Operation Date: 03/01/24 07:00 Proposed Procedures p Cystoscopy, Right Stent Placement - Gamaliel Pritchard MD Height/Weight Height: 5 ft 4 in Weight: 81.647 kg Allergies Allergy/AdvReac Type Severity Reaction Status Date / Time latex Allergy Mild localized Verified 03/01/24 11:17 Rash Medications Home Medications Medication Instructions Recorded Confirmed Last Taken omeprazole 40 mg capsule,delayed 40 mg PO BID #180 caps 08/10/23 03/01/24 02/28/24 release losartan 50 mg tablet 50 mg PO QAM 12/29/23 03/01/24 02/28/24 metformin 500 mg 24 hr 500 mg PO TID weightloss 02/08/24 03/01/24 02/28/24 tablet,extended release (gastric retention) cephalexin 500 mg capsule 500 mg PO QID 7 days #28 caps 02/25/24 03/01/24 02/28/24 ondansetron 4 mg disintegrating 4 mg PO Q8H PRN nausea and 02/25/24 03/01/24 02/29/24 tablet vomiting #9 tabs oxycodone 5 mg tablet 5 mg PO Q6H PRN Pain 02/28/24 03/01/24 02/29/24 tamsulosin 0.4 mg capsule (Flomax) 0.4 mg PO DAILY 02/28/24 03/01/24 02/28/24 acetaminophen 500 mg tablet 500 mg PO Q6H PRN pain/fever 02/29/24 03/01/24 02/29/24 Active Medications Generic Name Dose Route Start Last Admin Trade Name Freq PRN Reason Stop Dose Admin Sodium Chloride 1,000 mls @ 80 mls/hr 03/01/24 06:00 03/01/24 06:24 Nss IV 03/02/24 06:59 80 mls/hr .[id number] CARLOS ALBERTO Administration Lactated Ringer's 1,000 mls @ 15 mls/hr 03/01/24 11:30 03/01/24 12:05 Lr IV 03/31/24 11:29 Infused .Q24H CARLOS ALBERTO Infusion Insulin Aspart 0 units 03/01/24 09:49 03/01/24 10:43 Insulin Aspart Per Unit Charge SC 03/31/24 09:48 Not Given ACHS CARLOS ALBERTO NPO Date Last Intake of Fluids: 02/29/24 Time Last Intake of Fluids: 20:00 Date Last Intake of Solids: 02/29/24 Time Last Intake of Solids: 20:00 Past Medical History Medical History Left ureteral stone Kidney stones Hx of squamous cell carcinoma (2013) Hx of colonic polyps Hyperlipidemia monitoring - "borderline" Tinnitus chronic Sensorineural hearing loss Phonak Audeo M50R disp 08/2019 GERD (gastroesophageal reflux disease) Hx pulmonary embolism (07/2016) r/t HRT - no problems since. Hypertension Past Family History Family History Grandfather (Maternal) Family hx of colon cancer Father Coronary heart disease Hyperlipidemia Hypertension Cardiac disorder Mother Hypertension Hyperlipidemia Brother FHx: deafness or hearing loss Past Surgical History Surgical History Hx of squamous cell carcinoma excision (2013) Hx of cystoscopy (06/2018) with stone basketing History of lithotripsy (05/06/18) Laser lithotripsy at [facility] History of oophorectomy B/L History of hysterectomy History of tonsillectomy History of tooth extraction History of esophagogastroduodenoscopy (EGD) (10/11/18) History of colonoscopy 04/28/23 repeat 5yrs Social History Smoking Status: Never smoker Do You Dip or Chew Tobacco: No Hx Alcohol Use: No Hx Substance Use: No substance use type: does not use Physical Exam Vital Signs Last Vital Signs Temp 36.8 C 03/01/24 11:11 Pulse 84 03/01/24 11:11 Resp 18 03/01/24 11:11 BP 168/92 H 03/01/24 11:11 Pulse Ox 96 03/01/24 11:11 O2 Del Method Room Air 03/01/24 11:11 Testing Laboratory Results 03/01/24 04:36 03/01/24 04:36 Urine Color Yellow 03/01/24 04:26 Urine Appearance Clear (Clear) 03/01/24 04:26 Urine pH 6.5 (4.5-7.5) 03/01/24 04:26 Ur Specific [place] [employer] 1.011 (1.000-1.030) 03/01/24 04:26 Urine Protein Negative (Negative) 03/01/24 04:26 Urine Glucose (UA) Negative (Negative) 03/01/24 04:26 Urine Ketones Negative (Negative) 03/01/24 04:26 Urine Nitrite Negative (Negative) 03/01/24 04:26 Ur Leukocyte Esterase Trace (Negative) H 03/01/24 04:26 Urine WBC (Auto) 0-5 /hpf (0-5) 03/01/24 04:26 Urine RBC (Auto) 0-2 /hpf (0-2) 03/01/24 04:26 U Hyaline Cast (Auto) 0-2 /lpf (0-2) 03/01/24 04:26 U Epithel Cells (Auto) 0-2 /hpf (0-2) 03/01/24 04:26 Urine Bacteria (Auto) None Seen (None Seen) 03/01/24 04:26
[2024-03-01] MEDS: DIATRIZOATE MEGLUMINE 30% 100ML VIAL INSTIL ONE (12:26)
[2024-03-01] MEDS ORDERED: ePHEDrine sulfate 50 MG/ML AMP IV PRN (12:27)
[2024-03-01] MEDS ORDERED: HYDROmorphone INJ 2 MG/ML SYR/VIAL IV PRN (12:27)
[2024-03-01] MEDS ORDERED: fentaNYL citrate PF 100 MCG/2 ML VIAL IV PRN (12:27)
[2024-03-01] MEDS ORDERED: PROMETHAZINE HCL 12.5 MG in SODIUM CHLORIDE 0.9% 50 ML IV PRN (12:27)
[2024-03-01] MEDS ORDERED: ATROPINE SULFATE 0.1 MG/ML 10ML SYR IV PRN (12:27)
[2024-03-01] MEDS ORDERED: ONDANSETRON INJ 2 MG/ML 2 ML VIAL ONE (12:34)
--- NOTE | 2024-03-01 12:34 | Operative Report ---
PG Post Operative Report Pre & Post Diagnosis Operation Date: 03/01/24 07:00 Pre-Op Diagnosis: Right Ureteral Stone Post-Op Diagnosis: Right Ureteral Stone I identified the patient and participated in the time-out.: Yes Procedure Operation Date: 03/01/24 07:00 Actual Procedures p Cystoscopy, Retragrade Pyelogram, Insertion of Right Ureteral Stent(Right) - Gamaliel Pritchard MD Surgeon Gamaliel Pritchard MD Door Operator none Estimated Blood Loss 0 Findings Consistent with Post-Op Diagnosis Specimens None Drains 6 Togolese by 24 cm double-J ureteral stent to the right ureter Anesthesia Type MAC Complications none Disposition Accompanied Patient To Recovery: Yes Disposition: Recovery Room Indications This is a 58-year-old female followed by urology for nephrolithiasis. She returned to the emergency department on 03/01 with ongoing flank pain and failure of trial of medical expulsive therapy. She presents the OR for right ureteral stent placement. Description of Procedure The patient was identified in the holding area and informed consent was confirmed. She was marked on the right side, then was taken to the operating room where anesthesia was initiated. She was placed in the dorsal lithotomy position with all pressure points appropriately padded. She was prepped and draped in the usual sterile fashion and a preoperative timeout was performed. A well-lubricated cystoscope was inserted per urethra and panendoscopy was performed. The urethra was normal in appearance. The bladder was of normal size with ureteral orifices in orthotopic position. The right ureteral orifice was identified and cannulated with a 5 Togolese open- ended catheter. A retrograde pyelogram was performed demonstrating the distal ureter was normal in course and caliber. In the mid ureter there was a filling defect conspicuous for the known stone. There was hydronephrosis of the proximal ureter and kidney. A 0.038" ZIPwire was advanced to the level of the kidney under fluoroscopic guidance. Over the wire, a 6 Togolese x 24 centimeter double-J ureteral stent was advanced. When the wire was removed, the proximal curl was visualized in the kidney with x-ray, and the distal curl visualized in the bladder with the cystoscope. At this point the bladder was drained and all instrumentation was removed. The patient was then awakened from anesthesia and was brought to the PACU in stable condition. I attest to the content of the Intraoperative Record and any orders documented therein. Any exceptions are noted below.
--- NOTE | 2024-03-01 13:02 | Anesthesiology Progress Note ---
Date of Service March 01, 2024 Anesthesia Post Procedure Vital Signs Vital Signs: Temp Pulse Pulse Pulse Resp BP BP 03/01/24 12:55 36.3 C L 74 16 120/71 03/01/24 12:45 81 20 116/71 03/01/24 12:37 36 C L 77 18 113/56 L 03/01/24 11:11 36.8 C 84 18 168/92 H 03/01/24 09:50 36.6 C 67 16 112/84 03/01/24 09:25 03/01/24 09:16 73 18 129/79 03/01/24 07:00 70 18 141/93 H 03/01/24 05:12 77 16 146/80 H 03/01/24 04:14 36.6 C 86 18 173/95 H Pulse Ox O2 Del Method O2 Flow Rate 03/01/24 12:55 97 Nasal Cannula 2 03/01/24 12:45 97 Oxymask 6 03/01/24 12:37 97 Oxymask 8 03/01/24 11:11 96 Room Air 03/01/24 09:50 96 Room Air 03/01/24 09:25 Room Air 03/01/24 09:16 95 Room Air 03/01/24 07:00 93 Room Air 03/01/24 05:12 99 Room Air 03/01/24 04:14 95 Room Air Pain Intensity Right: Pain Intensity: 0 Transfer of Care Handoff Completed per policy Notes Mental Status: alert / awake / arousable and participated in evaluation Patient Amnestic to Procedure: Yes Nausea / Vomiting: adequately controlled Pain: adequately controlled Airway Patency, RR, SpO2: stable & adequate BP & HR: stable & adequate Hydration State: stable & adequate Anesthetic Complications: no major complications apparent
[2024-03-01] MEDS: PANTOprazole 40 MG in SYRINGE 0 ML IV SCH (13:33)
--- NOTE | 2024-03-01 13:44 | Fluoroscopy Report ---
FL retrograde includes kub CLINICAL HISTORY: RT SIDE STENTright ureteral stent placement COMPARISON STUDY: KUB 03/01/2024 FLUOROSCOPY TIME: 7.9 seconds FLUOROSCOPY IMAGES: 2 EXPOSURE DOSE: 2.20 mGy FINDINGS: A right ureteral stent has been placed, the proximal portion appearing to be within satisfa ctory positioning. A subcentimeter filling defect in the right ureter at the level of L4 correlates w ith the patient's known ureteral calculus. There is persistent hydroureter. IMPRESSION: Fluoroscopic assistance as above. ACT 112: Negative or not required by law. Electronically signed by: Thuan Garrett M.D. 03/01/2024 1:43 PM
[2024-03-01 14:55] VITALS: BP 146/83; RESP 18; TEMP 98.2; O2SAT 96
[2024-03-01 15:43] VITALS: PULSE 85
--- NOTE | 2024-03-01 15:59 | Discharge Summary ---
Date of Service March 01, 2024 Admission HPI Per Admitting Provider The patient is a 58-year-old female with a past medical history including GERD, diabetes mellitus, hypertension, and 5 previous kidney stones. She has had a kidney stone on the left requiring a previous ureteral stent. She presents to the emergency department at [facility] with symptoms and history as noted above. Admission Exam Per Admitting Provider The patient is awake, alert and oriented 3, well developed and well nourished, normocephalic and atraumatic, lying in bed and in no acute distress. HEENT--PERRL, EOMI, mucous membranes and oropharynx mildly dry. Neck--supple. No JVD. No bruits. Thyroid normal, trachea midline, no adenopathy. Heart--normal S1 and S2. No murmurs, rubs or gallops. Lungs--clear bilaterally, no respiratory distress, no accessory muscle use. Abdomen--normal bowel sounds and soft. Nontender. Nondistended, no hernias or masses, no organomegaly. Extremities--no cyanosis or clubbing. No edema. Dermatologic--normal skin turgor, normal color, no abnormal lymph nodes, no rash. Neurologic--cranial nerves II through XII grossly intact. Rheumatologic--normal range of motion. Psychiatric--normal affect. Principal Diagnosis ureteral stone Discharge Exam Constitutional: well-appearing, no acute distress HEENT: NCAT, no conjunctival injection CV: clinically well perfused Resp: no increased WOB GI: non-distended MSK: no gross deformities appreciated Skin: warm, dry, no rash appreciated Neuro: alert, oriented, no focal neurologic deficit appreciated Discharge Data Allergies Allergy/AdvReac Type Severity Reaction Status Date / Time latex Allergy Mild localized Verified 03/01/24 11:17 Rash Consultations 03/01/24 05:20 ED Decision to Admit Stat 03/01/24 05:54 Consult Urology Routine Procedures Performed Operation Date: 03/01/24 07:00 Actual Procedures p Cystoscopy, Retragrade Pyelogram, Insertion of Right Ureteral Stent(Right) - Gamaliel Pritchard MD Ordered Studies 03/01/24 FL retrograde includes kub Routine Hospital Course (1) Right ureteral stone: (2) Hydronephrosis, right: (3) Acid reflux disease: (4) Essential hypertension: (5) Obesity: Plan 6 mm mid right ureteral stone/mild right hydronephrosis- tamsulosin s/p one dose CTX Urology placed stent - follow up with them in office Acute kidney injury- Creatinine 1.40, with base 0.7 Hypertension- Restart losartan at dc GERD- Change omeprazole 40 mg p.o. twice daily to pantoprazole 40 mg IV daily Sleep apnea- CPAP at bedtim Total Time Total Time Spent Total Time Spent (In Minutes): <30 Discharge Plan Discharge Items Patient Disposition: Home - Self-Care Reason For Visit: 6MM RIGHT URETERAL STONE, MILD RIGHT HYDRO, DANIELLE Discharge Diagnosis: Ureteral stone Activity: Resume your previous activity Activity Comment: as tolerated Non-emergency contact: Primary Care Provider and Urologist Call non-emergency contact if: you have any medication questions, your symptoms worsen and you have a fever Follow-up/Referrals: Oseas Ford MD [Primary Care Provider] - 03/06/24 10:30 am Diet: Regular Addtl Attending Provider Instructions: You were admitted to the hospital for ureteral stone. You were treated with pain medications and urology placed a stent. You should follow up with them in office. A discharge summary will be sent to your primary care physician to ensure continuity of care. Please bring this discharge summary with you to your next office appointment so that your provider can review it at that time. Follow-up appointments: Make a follow-up appointment with your PCP within the next week. It is very important that you follow up with them shortly after discharge from the hospital. Keep all your follow-up appointments as already scheduled. If you cannot make an appointment, notify your provider. Medications: Your medication list has been reviewed and reconciled upon discharge to ensure accuracy and continuity of care. An updated list of all your medications is included with your hospital discharge paperwork. Please review this list closely, and make note of any changes. We sent a new medication called oxybutynin to your pharmacy. Take oxybutynin (5mg) one tablet twice daily as needed for ureteral spasm. If you have any issues filling these prescriptions, please call [phone] and ask to leave a message for Dr. Zoran Lew. Take your medications as instructed; do not skip a dose of your medicines. Make sure all of your doctors know every medicine you are taking (including myxi-wvj-tvujjiy medicines, vitamins, and supplements). Call your primary care provider before taking any new medicines (including ybkj-lgm-yovmysf medicines, vitamins, and supplements), because some of these may interact with your current medications, or may make your symptoms worse. Tell your primary care provider if you cannot afford your medications. CONTACT YOUR PRIMARY CARE PROVIDER if you experience any of the following: Increased pain Fever Difficulty following your treatment plan, or difficulty taking medications CALL 911 OR GO TO THE EMERGENCY DEPARTMENT if you experience any of the following: Sudden, severe abdominal pain or nausea/vomiting Severe chest pain, or chest pain that radiates (moves) to your jaw or arm Sudden, severe shortness of breath or difficulty breathing Thank you for allowing us to participate in your care. Pending Studies at Discharge: No Stand-Alone Forms: [facility] Medications and DC Order Prescriptions: New oxybutynin chloride 5 mg tablet 5 mg PO Q6H PRN (Reason: bladder spasms) Qty: 30 0RF Continued cephalexin 500 mg capsule 500 mg PO QID 7 Days Qty: 28 0RF Rx Instructions: [facility] ER 02/24/24 x7 day supply ondansetron 4 mg tablet,disintegrating 4 mg PO Q8H PRN (Reason: nausea and vomiting) Qty: 9 0RF Rx Instructions: [facility] ER 02/24/24 omeprazole 40 mg capsule,delayed release(DR/EC) 40 mg PO BID Qty: 180 3RF metformin 500 mg tablet,ER cinda.retention 24 hr 500 mg PO TID oxycodone 5 mg tablet 5 mg PO Q6H PRN (Reason: Pain) tamsulosin [Flomax] 0.4 mg capsule 0.4 mg PO DAILY losartan 50 mg tablet 50 mg PO QAM Rx Instructions: replaces lisinopril acetaminophen 500 mg Tablet 500 mg PO Q6H PRN (Reason: pain/fever) Discharge Orders: Discharge Order (Routine); Ordered 03/01/24 Ordered By: Zoran Lew Admission Data Admit Date/Time: 03/01/24 06:00 Attending Provider: Familia Tariq Admit Provider: Familia Tariq Primary Care Provider: Oseas Ford Other Providers: Familia Tariq; Melitno Shepherd Other Interventions: Discharge Summary Assessment (RN) Last Done: 08/14/24 15:56 Supervising Physician Co-Signing Physician Notes I personally examined the patient and verified all lin points of history and exam, discussed case, and agree with decision making with Dr Lew feeling better would like to go home, urology input appreciated Vitals noted, in general she is awake and alert pleasant no distress. HEENT normocephalic atraumatic mucous membranes moist. Breathing unlabored no accessory muscle use good effort. Skin without rashes pallor or icterus. Neuro without focal deficits. Ureterolithiasisstatus post cystoscopy and stenting. Stable for home. Finishing out antibiotics previously prescribed by urology. outpt f/u w urology. Otherwise as above. Resident Activity Tracking Resident Involvement: Resident Care Provided Care Provided: Adult Hospital Medicine
--- NOTE | 2024-03-01 17:56 | Billing Data ---
Date of Service March 01, 2024 Coding Level of Care Code 74731 IN/OBS DISCH 30 MIN/LESS
[2024-03-02] MEDS ORDERED: cefTRIAXone SODIUM 2,000 MG/50 ML BAG IV SCH (06:00)
== END 2024-03-01 16:28 | disposition home or self-care (01) | DRG 661 ==
LOC: SUATTDRO → ED 04:11 → EDINP 06:00 → 3W 09:25
DX: Z68.32 Body mass index [BMI] 32.0-32.9, adult; I10 Essential (primary) hypertension; Z79.899 Other long term (current) drug therapy; Z87.442 Personal history of urinary calculi; G47.30 Sleep apnea, unspecified; N17.9 Acute kidney failure, unspecified; E78.5 Hyperlipidemia, unspecified; E66.9 Obesity, unspecified; Z79.84 Long term (current) use of oral hypoglycemic drugs; K21.9 Gastro-esophageal reflux disease without esophagitis; N13.2 Hydronephrosis with renal and ureteral calculous obstruction; E11.9 Type 2 diabetes mellitus without complications; Z91.040 Latex allergy status

== ENCOUNTER 2024-03-09 22:27 | Inpatient (IN) ==
[2024-03-09] MEDS: SODIUM CHLORIDE 0.9% 1,000 ML IV SCH (22:54)
[2024-03-09] MEDS: ACETAMINOPHEN 1,000 MG/100 ML VIAL IV STA (22:55)
[2024-03-09] MEDS: MoRPHine SULFATE 2 MG/ML CARP IV STA (22:56)
[2024-03-09] MEDS: ONDANSETRON INJ 2 MG/ML 2 ML VIAL IV STA (22:56)
[2024-03-09 23:10] LABS: Basophils # (auto) 0.03 K/uL (0.00-0.20); Basophils % (auto) 0.1 %; Hematocrit (blood only) 37.3 % (37.0-47.0); Hemoglobin 12.3 g/dl (12.0-16.0); Immature Granulocytes # (auto) 0.15 K/uL (0.01-0.20); Immature Granulocytes % (auto) 0.7 %; Lymphocytes # (auto) 1.05 K/uL (1.20-3.40); Mean Corpuscular Hemoglobin 27.3 pg (25.0-34.0); Mean Corpuscular Volume 82.9 fL (80.0-100.0); Mean Platelet Volume 9.8 fL (9.4-12.4); Monocytes # (auto) 0.97 K/uL (0.11-0.59); Monocytes % (auto) 4.6 %; Neutrophils # (auto) 18.89 K/uL (1.40-6.50); Neutrophils % (auto) 89.6 %; Platelet Count 406 K/uL (130-400); RDW Coefficient of Variation 14.2 % (11.5-14.5); RDW Standard Deviation 42.3 fL (36.4-46.3); White Blood Count 21.09 K/ul (4.8-10.8)
[2024-03-09 23:10] LABS: Appearance Urine Cloudy (Clear); Bacteria Urine Automated None Seen (None Seen); Bilirubin Urine Negative (Negative); Blood Urine 3+ (Negative); Cast Urine Automated 0-2 /lpf (0-2); Color Urine Yellow; Epithelial Cell Urine Auto 0-2 /hpf (0-2); Glucose Urine UA Negative (Negative); Ketones Urine Negative (Negative); Leukocyte Esterase Urine 2+ (Negative); Nitrite Urine Negative (Negative); Protein Urine 3+ (Negative); RBC Urine Automated >20 /hpf (0-2); Specific Gravity Urine 1.014 (1.000-1.030); Urobilinogen Urine Negative (Negative); WBC Urine Automated >50 /hpf (0-5); pH Urine 5.5 (4.5-7.5)
--- NOTE | 2024-03-09 23:11 | Emergency Department Note ---
History of Present Illness General Chief complaint: Fever Stated complaint: KIDNEY STONE REMOVAL TODAY/STINT IN, FEVER/CHILLS Time Seen by Provider: 03/09/24 22:40 History of Present Illness This is a 58-year-old female presenting to the emergency department for evaluation of fever that began around 8 PM this evening. Patient has recent medical history of ureteral calculi and did undergo laser lithotripsy this afternoon. She was doing well postprocedure and was able to go home without any difficulty. She does have oxycodone at home that she has been taking for pain. This evening she began to feel very cold and shaky, and had a high fever at home. She does not have significant head, neck, chest, or abdominal pain. She is urinating without difficulty. She rates her discomfort a 4/10. Home Medications Medication Instructions Recorded Confirmed Type omeprazole 40 mg capsule,delayed 40 mg PO BID #180 caps 08/10/23 03/09/24 Rx release losartan 50 mg tablet (Cozaar) 50 mg PO QAM 12/29/23 03/09/24 History metformin 500 mg 24 hr 500 mg PO TID weightloss 02/08/24 03/09/24 History tablet,extended release (gastric retention) ondansetron 4 mg disintegrating 4 mg PO Q8H PRN nausea and 02/25/24 03/09/24 Rx tablet vomiting #9 tabs oxycodone 5 mg tablet 5 mg PO Q6H PRN Pain 02/28/24 03/09/24 History acetaminophen 500 mg tablet 1,000 mg PO Q6H PRN pain/fever 02/29/24 03/09/24 History oxybutynin chloride 5 mg tablet 5 mg PO Q6H PRN bladder spasms #30 03/01/24 03/09/24 Rx tabs sulfamethoxazole 800 1 tab PO ONCE 1 day #1 tab 03/09/24 03/09/24 Rx mg-trimethoprim 160 mg tablet (Bactrim DS) Allergies Allergy/AdvReac Type Severity Reaction Status Date / Time latex Allergy Mild localized Verified 03/09/24 09:38 Rash Past Med/Surg History Problem List (Updated 03/10/24 @ 02:01 by Jovanny Ervin PA-C) Fever (Acute) Sepsis (Acute) Right ureteral stone (Acute) Sleep apnea cpap at night Obesity taking metformin for weightloss Wears hearing aid in both ears [employer] M50R disp 08/2019 Adenomatous polyps Multiple rib fractures 07/08/21 Acid reflux disease Nephrolithiasis Essential hypertension (Chronic) Allergic rhinitis (Chronic) Hyperlipidemia (Chronic) Rosacea (Chronic) Sensorineural hearing loss (SNHL) of both ears (Chronic) Mild to moderate mid to high-frequency SNHL AU Tinnitus (Chronic) Medical History Hydronephrosis, right Rosacea Hydronephrosis, right Allergic rhinitis Essential hypertension Acid reflux disease History of COVID-19 (2020) not hospitalized, had covid pneumonia, resolved History of pneumonia (2020) History of fracture of rib due to pneumonia/coughing - fractured multiple ribs - multiple times-last notation from 2020 Sleep apnea cpap Kidney stones Hx of squamous cell carcinoma (2013) Hx of colonic polyps Hyperlipidemia monitoring - "borderline" Tinnitus chronic/ mild Sensorineural hearing loss [employer] M50R disp 08/2019 GERD (gastroesophageal reflux disease) Hx pulmonary embolism (07/2016) r/t HRT/ premarin - no problems since. Hypertension Surgical History S/P cystoscopy with ureteral stent placement (03/01/24) multiple since 2017, most recent 03/01/24 Hx of colonoscopy with polypectomy (04/28/23) Hx of squamous cell carcinoma excision (2013) History of lithotripsy (05/06/18) Laser lithotripsy at [facility] History of oophorectomy (2012) B/L History of hysterectomy (2002) History of tonsillectomy History of tooth extraction History of esophagogastroduodenoscopy (EGD) (10/11/18) Family History Grandfather (Maternal) Family hx of colon cancer Father Coronary heart disease Hyperlipidemia Hypertension Cardiac disorder Mother Hypertension Hyperlipidemia Brother FHx: deafness or hearing loss Social History Smoking Status: Never smoker Second Hand Exposure: No; Do You Dip or Chew Tobacco: No; Hx Alcohol Use: No Hx Substance Use: No Preferred Language: Kinyarwanda Communication Ability: Effective Returned Goods Repairer Required: No Beliefs That Will Affect Care: None Current Living Situation: Spouse Feels Safe at Home: Yes Assistive Devices: None Review of Systems A total of 10 systems reviewed and were otherwise negative Physical Exam Vital Signs Vital Signs - 24 hr 03/09/24 22:30 03/09/24 22:54 03/09/24 23:00 Temperature 39.5 C H Temperature Source Oral Pulse Rate 135 H 123 H Pulse Rate [Apical] Pulse Rate from SpO2 Sensor Pulse Rhythm Regular Pulse Rhythm [Apical] Pulse Strength Normal Pulse Strength [Apical] Respiratory Rate 20 Respiratory Effort / Characteristics Non-Labored Spontaneous Respiratory Depth Normal Respiratory Pattern Regular Blood Pressure 164/89 H 139/85 Blood Pressure [Right Arm] Blood Pressure Mean 114 102 Blood Pressure Mean [Right Arm] Blood Pressure Position [Right Arm] Pulse Oximetry 92 Oxygen Delivery Method Room Air Oxygen Flow Rate Sepsis Recent Fever Within 48 Hours Yes Sepsis New/Unexplained Change in Mental Status N/A Sepsis Action Taken by Nursing No Action Required Oxygen Flow Rate - Titration Pulse Oximetry Post Tiitration 03/09/24 23:00 03/09/24 23:03 03/09/24 23:03 Temperature Temperature Source Pulse Rate 119 H Pulse Rate [Apical] Pulse Rate from SpO2 Sensor 119 H Pulse Rhythm Pulse Rhythm [Apical] Pulse Strength Pulse Strength [Apical] Respiratory Rate 26 H Respiratory Effort / Characteristics Respiratory Depth Respiratory Pattern Blood Pressure 139/85 Blood Pressure [Right Arm] Blood Pressure Mean 102 Blood Pressure Mean [Right Arm] Blood Pressure Position [Right Arm] Pulse Oximetry 93 Oxygen Delivery Method Room Air Oxygen Flow Rate 88 Sepsis Recent Fever Within 48 Hours Sepsis New/Unexplained Change in Mental Status Sepsis Action Taken by Nursing Oxygen Flow Rate - Titration 2 Pulse Oximetry Post Tiitration 93 03/09/24 23:18 03/09/24 23:25 03/09/24 23:30 Temperature 37.6 C H Temperature Source Oral Pulse Rate 114 H Pulse Rate [Apical] 113 H Pulse Rate from SpO2 Sensor 113 H Pulse Rhythm Pulse Rhythm [Apical] Regular Pulse Strength Pulse Strength [Apical] Normal Respiratory Rate 27 H 19 Respiratory Effort / Characteristics Non-Labored Respiratory Depth Normal Respiratory Pattern Regular Blood Pressure 123/77 Blood Pressure [Right Arm] 139/85 Blood Pressure Mean 89 Blood Pressure Mean [Right Arm] 103 Blood Pressure Position [Right Arm] Sitting Pulse Oximetry 94 93 Oxygen Delivery Method Nasal Cannula Oxygen Flow Rate 2 Sepsis Recent Fever Within 48 Hours Sepsis New/Unexplained Change in Mental Status Sepsis Action Taken by Nursing Oxygen Flow Rate - Titration Pulse Oximetry Post Tiitration 03/09/24 23:54 03/10/24 00:00 03/10/24 00:03 Temperature Temperature Source Pulse Rate 110 H 109 H Pulse Rate [Apical] Pulse Rate from SpO2 Sensor 110 H 109 H Pulse Rhythm Pulse Rhythm [Apical] Pulse Strength Pulse Strength [Apical] Respiratory Rate 25 H 28 H Respiratory Effort / Characteristics Respiratory Depth Respiratory Pattern Blood Pressure 115/60 Blood Pressure [Right Arm] Blood Pressure Mean 83 Blood Pressure Mean [Right Arm] Blood Pressure Position [Right Arm] Pulse Oximetry 94 93 Oxygen Delivery Method Oxygen Flow Rate Sepsis Recent Fever Within 48 Hours Sepsis New/Unexplained Change in Mental Status Sepsis Action Taken by Nursing Oxygen Flow Rate - Titration Pulse Oximetry Post Tiitration VITALS: Vitals are noted on the nurse's note and reviewed by myself. Vital signs with fever and tachycardia. GENERAL: Well-developed, well-nourished, white female, who is in no acute distress and resting comfortably. Patient is cooperative with the examination. HEAD: Normocephalic atraumatic. NECK: Supple without nuchal rigidity. No lymphadenopathy. No thyromegaly. Cervical spine is nontender. HEART: Tachycardic rate LUNGS: Clear to auscultation bilaterally without wheezes, rales or rhonchi. No retractions or accessory muscle use. ABDOMEN: Positive normal bowel sounds x 4. Soft, nontender, without masses or organomegaly. No guarding or rebound tenderness. MUSCULOSKELETAL: No muscle atrophy, erythema, or edema noted. Full range of motion in all extremities. NEURO: Patient was alert and oriented to person place and time. CN II through XII grossly intact. No focal neurological deficits. Deep tendon reflexes 2+ throughout. SKIN: The skin was without rashes, erythema, edema, or bruising. Capillary refill less than 2 seconds. Course Administered Medications Discontinued Medications Sodium Chloride (Nss) 1,000 mls @ 999 mls/hr IV .Q1H1M CARLOS ALBERTO Stop: 03/09/24 23:45 Last Infusion: 03/09/24 23:56 Dose: Infused Documented By: Admin: 03/09/24 22:54 Dose: 999 mls/hr Documented By: GABRIEL Acetaminophen (Ofirmev) 1,000 mg in 100 mls @ 400 mls/hr IV NOW STA Stop: 03/09/24 22:58 Last Infusion: 03/09/24 23:19 Dose: Infused Documented By: Admin: 03/09/24 22:55 Dose: 400 mls/hr Documented By: GABRIEL Cefepime HCl (Maxipime) 20 mls @ 5 mls/min IV ONE STA Stop: 03/09/24 23:49 Last Admin: 03/10/24 00:00 Dose: 5 mls/min Documented By: MIGUELITO Sodium Chloride (Nss) 1,000 mls @ 999 mls/hr IV .Q1H1M CARLOS ALBERTO Stop: 03/10/24 01:51 Last Admin: 03/10/24 01:06 Dose: 999 mls/hr Documented By: Infusion: 03/10/24 01:06 Dose: Infused Documented By: Admin: 03/10/24 00:00 Dose: 999 mls/hr Documented By: MIGUELITO Morphine Sulfate (Morphine Sulfate 2 Mg/Ml Carp) 2 mg IV NOW STA Stop: 03/09/24 22:48 Last Admin: 03/09/24 22:56 Dose: 2 mg Documented By: GABRIEL Ondansetron HCl (Ondansetron Inj 2 Mg/Ml 2 Ml Vial) 4 mg IV NOW STA Stop: 03/09/24 22:48 Last Admin: 03/09/24 22:56 Dose: 4 mg Documented By: GABRIEL Medical Decision Making Differential Diagnosis Differential diagnosis: Etiologies such as viral syndrome, otitis, pharyngitis, pneumonia, influenza, meningitis, urinary tract infection, septic arthritis, soft tissue infectious process, intra-abdominal process, sepsis, bacteremia, as well as others were entertained. Laboratory Data 03/09/24 22:43 03/09/24 22:43 Lab Results 03/09/24 03/09/24 03/09/24 Range/Units 22:43 22:45 23:39 WBC 21.09 H (4.8-10.8) K/ul RBC 4.50 (4.20-5.40) M/uL Hgb 12.3 (12.0-16.0) g/dl Hct 37.3 (37.0-47.0) % MCV 82.9 (80.0-100.0) fL MCH 27.3 (25.0-34.0) pg MCHC 33.0 (32.0-36.0) g/dL RDW Std Deviation 42.3 (36.4-46.3) fL RDW Coeff of Jean 14.2 (11.5-14.5) % Plt Count 406 H (130-400) K/uL MPV 9.8 (9.4-12.4) fL Immature Gran % (Auto) 0.7 % Neut % (Auto) 89.6 % Lymph % (Auto) 5.0 % Lyon % (Auto) 4.6 % Eos % (Auto) 0.0 % Baso % (Auto) 0.1 % Neut # (Auto) 18.89 H (1.40-6.50) K/uL Lymph # (Auto) 1.05 L (1.20-3.40) K/uL Lyon # (Auto) 0.97 H (0.11-0.59) K/uL Eos # (Auto) 0.00 (0.00-0.50) K/uL Baso # (Auto) 0.03 (0.00-0.20) K/uL Immature Gran # (Auto) 0.15 (0.01-0.20) K/uL Sodium 140 (136-145) mmol/L Potassium 3.6 (3.5-5.1) mmol/L Chloride 104 (98-107) mmol/L Carbon Dioxide 24 (21-32) mmol/L Anion Gap 12 H (3-11) BUN 19 (6-23) mg/dl Creatinine 0.86 (0.6-1.2) mg/dl Est Cr Clr Drug Dosing 74.0 ml/min Est GFR ( Amer) 85.1 ml/min Est GFR (Non-Af Amer) 73.4 ml/min BUN/Creatinine Ratio 22.1 H (10-20) Glucose 121 H (70-99(Fasting)) mg/dl Lactate 3.8 H* (0.4-2.0) mmol/L Calcium 9.7 (8.6-10.3) mg/dl Total Bilirubin 0.4 (0.2-1.0) mg/dl AST 18 (13-39) U/L ALT 16 (7-52) U/L Alkaline Phosphatase 76 (34-104) U/L Total Protein 7.5 (6.0-8.3) gm/dl Albumin 4.5 (3.4-5.0) gm/dl Globulin 3.0 (2.5-4.0) gm/dl Albumin/Globulin Ratio 1.5 (0.9-2) Lipase 13 (11-82) U/L Urine Color Yellow Urine Appearance Cloudy A (Clear) Urine pH 5.5 (4.5-7.5) Ur Specific Deport 1.014 (1.000-1.030) Urine Protein 3+ H (Negative) Urine Glucose (UA) Negative (Negative) Urine Ketones Negative (Negative) Urine Blood 3+ H (Negative) Urine Nitrite Negative (Negative) Urine Bilirubin Negative (Negative) Urine Urobilinogen Negative (Negative) Ur Leukocyte Esterase 2+ H (Negative) Urine WBC (Auto) >50 H (0-5) /hpf Urine RBC (Auto) >20 H (0-2) /hpf U Hyaline Cast (Auto) 0-2 (0-2) /lpf U Epithel Cells (Auto) 0-2 (0-2) /hpf Urine Bacteria (Auto) None Seen (None Seen) Adenovirus (PCR) Not Detected (NotDetected) B. pertussis DNA (PCR) Not Detected (NotDetected) B.parapertussis DNA PCR Not Detected (NotDetected) C. pneumoniae DNA (PCR) Not Detected (NotDetected) Coronavirus OC43 (PCR) Not Detected (NotDetected) Coronavirus HKU1 (PCR) Not Detected (NotDetected) Coronavirus 229E (PCR) Not Detected (NotDetected) SARS-CoV-2 (PCR) Not Detected (NotDetected) Coronavirus NL63 (PCR) Not Detected (NotDetected) Human Metapneumovir PCR Not Detected (NotDetected) Influenza Type A (PCR) Not Detected (NotDetected) Influenza Type B (PCR) Not Detected (NotDetected) M. pneumoniae (PCR) Not Detected (NotDetected) Parainfluenza 1 (PCR) Not Detected (NotDetected) Parainfluenza 2 (PCR) Not Detected (NotDetected) Parainfluenza 3 (PCR) Not Detected (NotDetected) Parainfluenza 4 (PCR) Not Detected (NotDetected) RSV (PCR) Not Detected (NotDetected) Entero/Rhino (PCR) Not Detected (NotDetected) MDM Narrative Physical exam and history were performed. Nursing notes, EMR, and Medication List were personally reviewed. No social concerns were identified as barriers to patients care. Patient appears to have fever symptoms bringing her to the ER. On arrival patient does not appear well. She is febrile and tachycardic. She does have recent surgical procedure. IV access was established and labs were obtained. She was given a sepsis fluid bolus. Blood culture x 1 was obtained. Patient's blood work is as above and was reviewed. She has a markedly elevated white blood cell count of 21,000 with associated shift. She does not have significant anemia or gross electrolyte imbalance. Lactic initially is elevated at 3.8. X-ray was performed and may show atelectasis versus pneumonia in the right lower lobe. Urine without distinct infection. Patient was given IV morphine, IV Zofran, and IV Tylenol here in the ER. On reevaluation her vitals have improved, although she is persistently tachycardic. I did reach out to Dr. Pritcahrd, on-call urologist, who was involved in the patient's procedure earlier today. Recommendation is for imaging to ensure stent is appropriately placed, as well as initiation of antibiotics. Case was additionally discussed with my attending physician, and we will start the patient on cefepime. Patient does not seem well for discharge home and escalation of care is felt to be necessary. Case was discussed with the on-call hospitalist team who agreed to evaluate the patient here in the ER. Please see their dictation for further patient course, plan, disposition. The chart was completed utilizing [employer] Speech Voice Recognition Software. Grammatical errors, random word insertions, pronoun errors, and incomplete sentences are an occasional consequence of this system due to software limitations, ambient noise, and hardware issues. Any formal questions or concerns about the content, text, or information contained within the body of this dictation should be directly addressed to the provider for clarification. Impression & Plan Sepsis, Fever Discharge Plan Visit Data Chief Complaint: Fever Stated Complaint: KIDNEY STONE REMOVAL TODAY/STINT IN, FEVER/CHILLS ED Provider: Osito Bhatia ED Midlevel Provider: Jovanny Ervin Discharge Problem: Sepsis, Fever Forms Stand Alone Forms: My [facility] Prescriptions Prescriptions: No Action ondansetron 4 mg tablet,disintegrating 4 mg PO Q8H PRN (Reason: nausea and vomiting) Qty: 9 0RF Rx Instructions: [facility] ER 02/24/24 omeprazole 40 mg capsule,delayed release(DR/EC) 40 mg PO BID Qty: 180 3RF metformin 500 mg tablet,ER cinda.retention 24 hr 500 mg PO TID oxycodone 5 mg tablet 5 mg PO Q6H PRN (Reason: Pain) losartan [Cozaar] 50 mg tablet 50 mg PO QAM Rx Instructions: replaces lisinopril oxybutynin chloride 5 mg tablet 5 mg PO Q6H PRN (Reason: bladder spasms) Qty: 30 0RF acetaminophen 500 mg Tablet 1,000 mg PO Q6H PRN (Reason: pain/fever) sulfamethoxazole-trimethoprim [Bactrim DS] 800-160 mg tablet 1 tab PO ONCE 1 Days Qty: 1 0RF Referrals Referrals: Oseas Ford MD [Primary Care Provider] -
[2024-03-09 23:27] LABS: Albumin Globulin Ratio 1.5 (0.9-2); Albumin Level 4.5 gm/dl (3.4-5.0); BUN Creatinine Ratio 22.1 (10-20); Bilirubin,Total 0.4 mg/dl (0.2-1.0); Calcium 9.7 mg/dl (8.6-10.3); Est GFR (African American) 85.1 ml/min; Est GFR (Non-African American) 73.4 ml/min; Potassium 3.6 mmol/L (3.5-5.1); Total Protein 7.5 gm/dl (6.0-8.3)
[2024-03-09] MEDS ORDERED: CEFEPIME 2,000 MG in SYRINGE 0 ML IV STA (23:30)
[2024-03-09 23:55] LABS: Adenovirus PCR Not Detected (NotDetected); Bordetella parapertussis PCR Not Detected (NotDetected); Bordetella pertussis PCR Not Detected (NotDetected); Chlamydia pneumoniae PCR Not Detected (NotDetected); Coronavirus 229E PCR Not Detected (NotDetected); Coronavirus CoV-2 (COVID19)PCR Not Detected (NotDetected); Coronavirus HKU1 PCR Not Detected (NotDetected); Coronavirus NL63 PCR Not Detected (NotDetected); Coronavirus OC43PCR Not Detected (NotDetected); Human Metapneumovirus PCR Not Detected (NotDetected); Influenza A PCR Not Detected (NotDetected); Influenza B PCR Not Detected (NotDetected); Mycoplasma pneumoniae PCR Not Detected (NotDetected); Parainfluenza Virus 1 PCR Not Detected (NotDetected); Parainfluenza Virus 2 PCR Not Detected (NotDetected); Parainfluenza Virus 3 PCR Not Detected (NotDetected); Parainfluenza Virus 4 PCR Not Detected (NotDetected); Respiratory Syncytial VirusPCR Not Detected (NotDetected); Rhinovirus/Enterovirus PCR Not Detected (NotDetected)
[2024-03-10] MEDS: CEFEPIME 20 ML IV STA
--- NOTE | 2024-03-10 00:56 | History & Physical Report ---
Date of Service March 10, 2024 Assessment & Plan (1) Sepsis: (2) Pneumonia: (3) Acute respiratory failure with hypoxia: (4) Urinary tract infection: (5) Right ureteral stone: (6) Fever: (7) Sleep apnea: (8) Acid reflux disease: (9) Essential hypertension: Plan Sepsis with fever, generalized myalgias and fatigue- Due to combination of presumptive aspiration pneumonia and UTI associated with right ureteral stent CT chest, abdomen and pelvis added to assess for sepsis For now n.p.o. except meds Hold losartan and metformin Patient received a one-time dose of Bactrim DS earlier in the day Urinary tract infection status post right stone extraction and placement of right ureteral stent- Follow urine culture and sensitivity Cefepime 2 g IV every 8 hours Status post 2 L normal saline bolus in the ED NSS + KCl 20 mill equivalents at 100 mL/h x 1 L Continue oxybutynin, add tamsulosin for the a.m. Acetaminophen 1000 mg by mouth every 6 hours as needed for mild pain or fever Continue oxycodone 5 mg by mouth every 6 hours as needed for moderate pain Add morphine 4 mg IV every 3 hours as needed for severe pain Acute respiratory failure with hypoxia/bilateral pneumonia right greater than left Possible aspiration Send a MRSA swab Continue cefepime as above Duonebs every 4 hours while awake and every 2 hours when necessary. Nasal cannula oxygen, titrate to keep pulse ox around 94% Weight loss treatment/hyperglycemia- Holding metformin Hold on Accu-Cheks with NovoLog SSI unless glucose high in the morning GERD- Continue omeprazole/pantoprazole History of Present Illness Chief Complaint: The patient presents to the emergency department with worsening right flank and pelvic pain, fever and nausea that began during the day after having a right ureteral stent placement this morning of 03/09 Primary Care Provider: Oseas Ford MD The patient is a 58-year-old female with a past medical history including sleep apnea, obesity, rib fractures, GERD, hypertension, hyperlipidemia, SNHL bilaterally, and rosacea. She underwent cystoscopy, ureteronephroscopy, basket extraction of the stone, and insertion of right stent catheter approximately 10:50 AM 03/09. She reports that her pain had improved initially postprocedure, however, as the day progressed, she became more painful, and developed a temperature to 102 F and nausea. She thus presents to the ED for assessment. She reports that this is her fifth kidney stone, and third stent in her lifetime. She also describes some generalized muscle aches and fatigue Allergies Allergy/AdvReac Type Severity Reaction Status Date / Time latex Allergy Mild localized Verified 03/09/24 09:38 Rash Home Medications Medication Instructions Recorded Confirmed Type omeprazole 40 mg capsule,delayed 40 mg PO BID #180 caps 08/10/23 03/09/24 Rx release losartan 50 mg tablet (Cozaar) 50 mg PO QAM 12/29/23 03/09/24 History metformin 500 mg 24 hr 500 mg PO TID weightloss 02/08/24 03/09/24 History tablet,extended release (gastric retention) ondansetron 4 mg disintegrating 4 mg PO Q8H PRN nausea and 02/25/24 03/09/24 Rx tablet vomiting #9 tabs oxycodone 5 mg tablet 5 mg PO Q6H PRN Pain 02/28/24 03/09/24 History acetaminophen 500 mg tablet 1,000 mg PO Q6H PRN pain/fever 02/29/24 03/09/24 History oxybutynin chloride 5 mg tablet 5 mg PO Q6H PRN bladder spasms #30 03/01/24 03/09/24 Rx tabs sulfamethoxazole 800 1 tab PO ONCE 1 day #1 tab 03/09/24 03/09/24 Rx mg-trimethoprim 160 mg tablet (Bactrim DS) Past Med/Surg History Problem List (Updated 03/10/24 @ 02:42 by Familia Tariq MD) Pneumonia Acute respiratory failure with hypoxia Urinary tract infection Fever (Acute) Sepsis (Acute) Right ureteral stone (Acute) Sleep apnea cpap at night Obesity taking metformin for weightloss Wears hearing aid in both ears Phonak Audeo M50R disp 08/2019 Adenomatous polyps Multiple rib fractures 07/08/21 Acid reflux disease Nephrolithiasis Essential hypertension (Chronic) Allergic rhinitis (Chronic) Hyperlipidemia (Chronic) Rosacea (Chronic) Sensorineural hearing loss (SNHL) of both ears (Chronic) Mild to moderate mid to high-frequency SNHL AU Tinnitus (Chronic) Medical History Hydronephrosis, right Rosacea Hydronephrosis, right Allergic rhinitis Essential hypertension Acid reflux disease History of COVID-19 (2020) not hospitalized, had covid pneumonia, resolved History of pneumonia (2020) History of fracture of rib due to pneumonia/coughing - fractured multiple ribs - multiple times-last notation from 2020 Sleep apnea cpap Kidney stones Hx of squamous cell carcinoma (2013) Hx of colonic polyps Hyperlipidemia monitoring - "borderline" Tinnitus chronic/ mild Sensorineural hearing loss Phonantonieta Hines M50R disp 08/2019 GERD (gastroesophageal reflux disease) Hx pulmonary embolism (07/2016) r/t HRT/ premarin - no problems since. Hypertension Surgical History S/P cystoscopy with ureteral stent placement (03/01/24) multiple since 2017, most recent 03/01/24 Hx of colonoscopy with polypectomy (04/28/23) Hx of squamous cell carcinoma excision (2013) History of lithotripsy (05/06/18) [facility]otripsy at [facility] History of oophorectomy (2012) B/L History of hysterectomy (2002) History of tonsillectomy History of tooth extraction History of esophagogastroduodenoscopy (EGD) (10/11/18) Family History Grandfather (Maternal) Family hx of colon cancer Father Coronary heart disease Hyperlipidemia Hypertension Cardiac disorder Mother Hypertension Hyperlipidemia Brother FHx: deafness or hearing loss Social History Smoking Status: Never smoker Second Hand Exposure: No; Do You Dip or Chew Tobacco: No; Hx Alcohol Use: No Hx Substance Use: No Preferred Language: Yoruba Communication Ability: Effective International Relations Professor Required: No Beliefs That Will Affect Care: None Current Living Situation: Spouse Feels Safe at Home: Yes Assistive Devices: None Review of Systems Review of Systems: The patient denies chest pain, palpitations, cough, lower extremity swelling, sore throat, chills, sweats, vomiting, diarrhea , constipation, abdominal pain, pelvic pain, blood in urine or stool, dysuria, urinary frequency or urgency, lightheadedness, dizziness, headache, memory loss, loss of consciousness, rash, abnormal bruising or bleeding, imbalance, focal weakness, numbness or tingling in arms or legs, neck pain, or night sweats. The review of systems is otherwise negative other than for that already noted above, and at least 10 systems have been reviewed. Physical Exam Physical Exam: The patient is awake, alert and oriented 3, well developed and well nourished, normocephalic and atraumatic, lying in bed and in no acute distress. HEENT--PERRL, EOMI, mucous membranes and oropharynx mildly dry. Neck--supple. No JVD. No bruits. Thyroid normal, trachea midline, no adenopathy. Heart--normal S1 and S2. No murmurs, rubs or gallops. Lungs--decreased breath sounds throughout. No respiratory distress, no accessory muscle use. Abdomen--normal bowel sounds and soft. Nontender. Nondistended, no hernias or masses, no organomegaly. Extremities--no cyanosis or clubbing. No edema. Dermatologic--normal skin turgor, normal color, no abnormal lymph nodes, no rash. Neurologic--cranial nerves II through XII grossly intact. Rheumatologic--normal range of motion. Psychiatric--normal affect. Results & Data Results & Data Vital Signs (Past 12 Hours) Vital Signs Temp Pulse Pulse Resp BP BP Pulse Ox 03/10/24 00:03 109 H 28 H 93 03/10/24 00:00 115/60 03/09/24 23:54 110 H 25 H 94 03/09/24 23:30 123/77 03/09/24 23:25 37.6 C H 113 H 19 139/85 93 03/09/24 23:18 114 H 27 H 94 03/09/24 23:03 119 H 26 H 93 03/09/24 23:03 03/09/24 23:00 139/85 03/09/24 23:00 139/85 03/09/24 22:54 123 H 03/09/24 22:30 39.5 C H 135 H 20 164/89 H 92 O2 Del Method O2 Flow Rate 03/10/24 00:03 03/10/24 00:00 03/09/24 23:54 03/09/24 23:30 03/09/24 23:25 Nasal Cannula 2 03/09/24 23:18 03/09/24 23:03 03/09/24 23:03 Room Air 88 03/09/24 23:00 03/09/24 23:00 03/09/24 22:54 03/09/24 22:30 Room Air Laboratory Results Laboratory Results WBC 21.09 K/ul (4.8-10.8) H 03/09/24 22:43 RBC 4.50 M/uL (4.20-5.40) 03/09/24 22:43 Hgb 12.3 g/dl (12.0-16.0) 03/09/24 22:43 Hct 37.3 % (37.0-47.0) 03/09/24 22:43 MCV 82.9 fL (80.0-100.0) 03/09/24 22:43 MCH 27.3 pg (25.0-34.0) 03/09/24 22:43 MCHC 33.0 g/dL (32.0-36.0) 03/09/24 22:43 RDW Std Deviation 42.3 fL (36.4-46.3) 03/09/24 22:43 RDW Coeff of Jean 14.2 % (11.5-14.5) 03/09/24 22:43 Plt Count 406 K/uL (130-400) H 03/09/24 22:43 MPV 9.8 fL (9.4-12.4) 03/09/24 22:43 Immature Gran % (Auto) 0.7 % 03/09/24 22:43 Neut % (Auto) 89.6 % 03/09/24 22:43 Lymph % (Auto) 5.0 % 03/09/24 22:43 [place] % (Auto) 4.6 % 03/09/24 22:43 Eos % (Auto) 0.0 % 03/09/24 22:43 Baso % (Auto) 0.1 % 03/09/24 22:43 Neut # (Auto) 18.89 K/uL (1.40-6.50) H 03/09/24 22:43 Lymph # (Auto) 1.05 K/uL (1.20-3.40) L 03/09/24 22:43 [place] # (Auto) 0.97 K/uL (0.11-0.59) H 03/09/24 22:43 Eos # (Auto) 0.00 K/uL (0.00-0.50) 03/09/24 22:43 Baso # (Auto) 0.03 K/uL (0.00-0.20) 03/09/24 22:43 Immature Gran # (Auto) 0.15 K/uL (0.01-0.20) 03/09/24 22:43 Sodium 140 mmol/L (136-145) 03/09/24 22:43 Potassium 3.6 mmol/L (3.5-5.1) 03/09/24 22:43 Chloride 104 mmol/L (98-107) 03/09/24 22:43 Carbon Dioxide 24 mmol/L (21-32) 03/09/24 22:43 Anion Gap 12 (3-11) H 03/09/24 22:43 BUN 19 mg/dl (6-23) 03/09/24 22:43 Creatinine 0.86 mg/dl (0.6-1.2) 03/09/24 22:43 Est Cr Clr Drug Dosing 74.0 ml/min 03/09/24 22:43 Est GFR ( Amer) 85.1 ml/min 03/09/24 22:43 Est GFR (Non-Af Amer) 73.4 ml/min 03/09/24 22:43 BUN/Creatinine Ratio 22.1 (10-20) H 03/09/24 22:43 Glucose 121 mg/dl (70-99(Fasting)) H 03/09/24 22:43 Lactate 3.8 mmol/L (0.4-2.0) H* 03/09/24 23:39 Calcium 9.7 mg/dl (8.6-10.3) 03/09/24 22:43 Total Bilirubin 0.4 mg/dl (0.2-1.0) 03/09/24 22:43 AST 18 U/L (13-39) 03/09/24 22:43 ALT 16 U/L (7-52) 03/09/24 22:43 Alkaline Phosphatase 76 U/L (34-104) 03/09/24 22:43 Total Protein 7.5 gm/dl (6.0-8.3) 03/09/24 22:43 Albumin 4.5 gm/dl (3.4-5.0) 03/09/24 22:43 Globulin 3.0 gm/dl (2.5-4.0) 03/09/24 22:43 Albumin/Globulin Ratio 1.5 (0.9-2) 03/09/24 22:43 Lipase 13 U/L (11-82) 03/09/24 22:43 Urine Color Yellow 03/09/24 22:45 Urine Appearance Cloudy (Clear) A 03/09/24 22:45 Urine pH 5.5 (4.5-7.5) 03/09/24 22:45 Ur Specific [place] 1.014 (1.000-1.030) 03/09/24 22:45 Urine Protein 3+ (Negative) H 03/09/24 22:45 Urine Glucose (UA) Negative (Negative) 03/09/24:45 Urine Ketones Negative (Negative) 03/09/24:45 Urine Blood 3+ (Negative) H 03/09/24 22:45 Urine Nitrite Negative (Negative) 03/09/24 22:45 Urine Bilirubin Negative (Negative) 03/09/24:45 Urine Urobilinogen Negative (Negative) 03/09/24 22:45 Ur Leukocyte Esterase 2+ (Negative) H 03/09/24 22:45 Urine WBC (Auto) >50 /hpf (0-5) H 03/09/24 22:45 Urine RBC (Auto) >20 /hpf (0-2) H 03/09/24 22:45 U Hyaline Cast (Auto) 0-2 /lpf (0-2) 03/09/24 22:45 U Epithel Cells (Auto) 0-2 /hpf (0-2) 03/09/24 22:45 Urine Bacteria (Auto) None Seen (None Seen) 03/09/24 22:45 Adenovirus (PCR) Not Detected (NotDetected) 03/09/24 22:45 B. pertussis DNA (PCR) Not Detected (NotDetected) 03/09/24 22:45 B.parapertussis DNA PCR Not Detected (NotDetected) 03/09/24 22:45 C. pneumoniae DNA (PCR) Not Detected (NotDetected) 03/09/24 22:45 Coronavirus OC43 (PCR) Not Detected (NotDetected) 03/09/24 22:45 Coronavirus HKU1 (PCR) Not Detected (NotDetected) 03/09/24 22:45 Coronavirus 229E (PCR) Not Detected (NotDetected) 03/09/24 22:45 SARS-CoV-2 (PCR) Not Detected (NotDetected) 03/09/24 22:45 Coronavirus NL63 (PCR) Not Detected (NotDetected) 03/09/24 22:45 Human Metapneumovir PCR Not Detected (NotDetected) 03/09/24 22:45 Influenza Type A (PCR) Not Detected (NotDetected) 03/09/24 22:45 Influenza Type B (PCR) Not Detected (NotDetected) 03/09/24 22:45 M. pneumoniae (PCR) Not Detected (NotDetected) 03/09/24 22:45 Parainfluenza 1 (PCR) Not Detected (NotDetected) 03/09/24 22:45 Parainfluenza 2 (PCR) Not Detected (NotDetected) 03/09/24 22:45 Parainfluenza 3 (PCR) Not Detected (NotDetected) 03/09/24 22:45 Parainfluenza 4 (PCR) Not Detected (NotDetected) 03/09/24 22:45 RSV (PCR) Not Detected (NotDetected) 03/09/24 22:45 Entero/Rhino (PCR) Not Detected (NotDetected) 03/09/24 22:45 Code Status & VTE Plan Code Status Full code VTE Prophylaxis Plan VTE Prophylaxis will be ordered: Yes PG Care Time/CCT Total # of Minutes Spent Total Time Spent with Patient: Total time spent is greater than 50% in coordination of care (as documented) at patient's floor/unit and/or counseling patient: Coding Level of Care Code 53243 INT INP/OBS CARE 3/75MIN Diagnoses Sepsis A41.9 Pneumonia J18.9 Acute respiratory failure with hypoxia J96.01 Urinary tract infection N39.0 Right ureteral stone N20.1 Fever R50.9 Sleep apnea G47.30 Gastroesophageal reflux disease without esophagitis K21.9 Esophagitis presence: without esophagitis Essential hypertension I10 (8) Acid reflux disease Esophagitis presence: without esophagitis Qualified Code(s): K21.9 - Gastro- esophageal reflux disease without esophagitis
[2024-03-10] MEDS ORDERED: oxyBUTYnin chloride 5 MG TAB PO PRN (02:14)
[2024-03-10] MEDS ORDERED: SULFAMETHOXAZOLE/TRIMETHOPRIM DS 800/160MG TAB PO SCH (02:14)
[2024-03-10] MEDS: MoRPHine SULFATE 4 MG/ML 1 ML CARP\\VIAL IV PRN (02:38)
[2024-03-10 02:53] LABS: Hematocrit (blood only) 35.3 % (37.0-47.0); Hemoglobin 11.3 g/dl (12.0-16.0); Mean Corpuscular Hemoglobin 27.3 pg (25.0-34.0); Mean Corpuscular Volume 85.3 fL (80.0-100.0); Mean Platelet Volume 9.7 fL (9.4-12.4); Platelet Count 313 K/uL (130-400); RDW Coefficient of Variation 14.2 % (11.5-14.5); Red Blood Count 4.14 M/uL (4.20-5.40); White Blood Count 19.27 K/ul (4.8-10.8)
--- NOTE | 2024-03-10 03:04 | CT Scan Report ---
Exam(s): CT CHEST Without Contrast EXAM: CT Chest Without Intravenous Contrast CLINICAL HISTORY: Reason for exam: acute resp failure /hypoxia, post ureteral stent. TECHNIQUE: Axial computed tomography images of the chest without intravenous contrast. CTDI is 28.03 mGy and DLP is 2390.46 mGy-cm. Automated exposure control was utilized for the study. A dose lowering technique was utilized adhering to the principles of ALARA. COMPARISON: No relevant prior studies available. FINDINGS: Lungs: Airspace consolidation at the lung bases, concerning for pneumonia. Aspiration not excluded. No mass. Pleural space: Unremarkable. No pneumothorax. No significant effusion. Heart: Unremarkable. No cardiomegaly. No significant pericardial effusion. No significant coronary artery calcifications. Mediastinum: Moderate hiatal hernia. Bones/joints: Unremarkable. No acute fracture. No dislocation. Soft tissues: Unremarkable. Vasculature: Unremarkable. No thoracic aortic aneurysm. Lymph nodes: Unremarkable. No enlarged lymph nodes. IMPRESSION: Airspace consolidation at the lung bases, concerning for pneumonia. Aspiration not excluded. Electronically signed by: Francisco Gordillo MD 03/10/24 03:04 AM
[2024-03-10] MEDS: ACETAMINOPHEN 500 MG TAB PO PRN (03:49)
[2024-03-10] MEDS: NSS + 20MEQ KCL 20 MEQ/1,000 ML BAG IV SCH (03:49)
--- NOTE | 2024-03-10 03:50 | CT Scan Report ---
Exam(s): CT ABDOMEN + PELVIS Without Contrast EXAM: CT Abdomen and Pelvis Without Intravenous Contrast CLINICAL HISTORY: Reason for exam: sepsis s/p right ureteral stent. TECHNIQUE: Axial computed tomography images of the abdomen and pelvis without intravenous contrast. CTDI is 28.03 mGy and DLP is 2390.46 mGy-cm. Automated exposure control was utilized for the study. A dose lowering technique was utilized adhering to the principles of ALARA. COMPARISON: No relevant prior studies available. FINDINGS: Lung bases: Dependent airspace consolidations, concerning for pneumonia. Mediastinum: Moderate hiatal hernia. ABDOMEN: Liver: Unremarkable. Gallbladder and bile ducts: Unremarkable. No calcified stones. No ductal dilation. Pancreas: Unremarkable. No ductal dilation. Spleen: Unremarkable. No splenomegaly. Adrenals: Unremarkable. No mass. Kidneys and ureters: RIGHT and LEFT ureteral stent, terminates in the urinary bladder. Mild hydronephrosis of the RIGHT kidney. Right-sided perinephric stranding. Evaluation limited without contrast. Stomach and bowel: Diverticulosis, without acute diverticulitis. No small bowel obstruction. No free intraperitoneal air. PELVIS: Appendix: No findings to suggest acute appendicitis. Bladder: Unremarkable. No stones. Reproductive: Hysterectomy. ABDOMEN and PELVIS: Intraperitoneal space: Unremarkable. No free air. No significant fluid collection. Bones/joints: Degenerative changes of the spine. No acute fracture. No dislocation. Soft tissues: Unremarkable. Vasculature: Atherosclerotic changes of the aorta. No abdominal aortic aneurysm. Lymph nodes: Unremarkable. No enlarged lymph nodes. IMPRESSION: 1. Dependent airspace consolidations, concerning for pneumonia. 2. RIGHT and LEFT ureteral stent, terminates in the urinary bladder. Mild hydronephrosis of the RIGHT kidney. Right-sided perinephric stranding. Evaluation limited without contrast. 3. Moderate hiatal hernia. 4. Hysterectomy. 5. Diverticulosis, without acute diverticulitis. No small bowel obstruction. No free intraperitoneal air. Electronically signed by: Francisco Gordillo MD 03/10/24 03:49 AM
[2024-03-10 04:18] LABS: Basophils # (auto) 0.03 K/uL (0.00-0.20); Basophils % (auto) 0.2 %; Immature Granulocytes # (auto) 0.15 K/uL (0.01-0.20); Immature Granulocytes % (auto) 0.8 %; Lymphocytes # (auto) 0.78 K/uL (1.20-3.40); Monocytes # (auto) 0.45 K/uL (0.11-0.59); Monocytes % (auto) 2.3 %; Neutrophils # (auto) 17.86 K/uL (1.40-6.50); Neutrophils % (auto) 92.7 %
[2024-03-10 04:31] LABS: Albumin Level 3.9 gm/dl (3.4-5.0); Calcium 8.5 mg/dl (8.6-10.3); Magnesium 1.3 mg/dl (1.7-2.4); Potassium 3.3 mmol/L (3.5-5.1)
[2024-03-10 04:36] LABS: BUN Creatinine Ratio 18.5 (10-20); Creatinine Clr Calc Pharmacy 69.2 ml/min; Est GFR (African American) 78.4 ml/min; Est GFR (Non-African American) 67.7 ml/min; Phosphorus 1.9 mg/dl (2.5-4.9)
[2024-03-10] MEDS ORDERED: POTASSIUM PHOS 3 MMOL/1 ML INFUSION IV STA (06:05)
[2024-03-10] MEDS: POTASSIUM CHLORIDE CRTAB 20 MEQ TABCR PO STA (06:34)
[2024-03-10] MEDS: SODIUM CHLORIDE 0.9% 500 ML IV ONE (06:34)
[2024-03-10] MEDS: MAGNESIUM SULFATE / D5W 1 GM/100 ML BAG IV SCH (06:34)
[2024-03-10] MEDS: SODIUM CHLORIDE 0.9% 1,000 ML IV ONE (06:37)
[2024-03-10] MEDS: ALBUT/IPRATROP 3MG/0.5MG NEB 3 ML VIAL NEB SCH (07:25)
--- NOTE | 2024-03-10 07:28 | Urology Consultation ---
Date of Consultation March 10, 2024 Assessment & Plan (1) Urinary tract infection: (2) Sepsis: (3) Fever: (4) Right ureteral stone: (5) Pneumonia: Plan 58-year-old female readmitted after ureteroscopy with fevers. Urinalysis not overtly demonstrating infection, however agree with obtaining a urine culture and blood cultures. Chest imaging suggestive of pneumonia. Agree with supportive care, broad-spectrum antibiotics and narrowing coverage as culture data becomes available. Her ureteral stent is in good position. From the urology perspective she does not require any additional procedures at this point. Urology will follow along History of Present Illness Reason for Consultation: Fevers s/p ureteroscopy Attending Physician: Siria Byrne MD History of Present Illness This is a 58-year-old female followed by urology for nephrolithiasis. She had undergone right ureteral stent placement on 03/01/2024 for intractable pain. She returned to the OR on 03/09 for ureteroscopy. Preoperative urine culture was negative and she received perioperative antibiotic. Ureteroscopy was performed and successfully removed her right ureteral stone. A stent was left in position. She was discharged home in good condition. She returned to the emergency department on 03/09/2024 with fevers and chills up to 39.5C, and was feeling cold and shaky. She was not having significant pain and was voiding well. Workup was notable for leukocytosis (WBC 21.09) with left shift. Creatinine was normal at 0.86. Lactate was elevated at 3.8. Urinalysis demonstrated 3+ blood, 2+ leukocyte esterase, was negative for nitrites and for bacteria. CT scan of the abdomen pelvis was performed. I independently reviewed these images. Her kidneys are in normal position. There is perinephric stranding on the right side. Her stent appears to be in good position. I did not appreciate any overt fluid collections in the retroperitoneum. Small amount of fluid within the bladder but the bladder otherwise looks normal. A chest CT scan was also performed which demonstrated airspace consolidation at the lung bases concerning for pneumonia. At the bedside this morning, she reports that she is feeling better than she did upon arrival. She has been receiving broad-spectrum antibiotics. She denies any significant abdominal pain. Allergies Allergy/AdvReac Type Severity Reaction Status Date / Time latex Allergy Mild localized Verified 03/09/24 09:38 Rash Home Medications Medication Instructions Recorded Confirmed Type omeprazole 40 mg capsule,delayed 40 mg PO BID #180 caps 08/10/23 03/09/24 Rx release losartan 50 mg tablet (Cozaar) 50 mg PO QAM 12/29/23 03/09/24 History metformin 500 mg 24 hr 500 mg PO TID weightloss 02/08/24 03/09/24 History tablet,extended release (gastric retention) ondansetron 4 mg disintegrating 4 mg PO Q8H PRN nausea and 02/25/24 03/09/24 Rx tablet vomiting #9 tabs oxycodone 5 mg tablet 5 mg PO Q6H PRN Pain 02/28/24 03/09/24 History acetaminophen 500 mg tablet 1,000 mg PO Q6H PRN pain/fever 02/29/24 03/09/24 History oxybutynin chloride 5 mg tablet 5 mg PO Q6H PRN bladder spasms #30 03/01/24 0 03/09/24 Rx tabs sulfamethoxazole 800 1 tab PO ONCE 1 day #1 tab 03/09/24 03/09/24 Rx mg-trimethoprim 160 mg tablet (Bactrim DS) Patient History Medical History Hydronephrosis, right Rosacea Hydronephrosis, right Allergic rhinitis Essential hypertension Acid reflux disease History of COVID-19 (2020) not hospitalized, had covid pneumonia, resolved History of pneumonia (2020) History of fracture of rib due to pneumonia/coughing - fractured multiple ribs - multiple times-last notation from 2020 Sleep apnea cpap Kidney stones Hx of squamous cell carcinoma (2013) Hx of colonic polyps Hyperlipidemia monitoring - "borderline" Tinnitus chronic/ mild Sensorineural hearing loss Phonak Leannao M50R disp 08/2019 GERD (gastroesophageal reflux disease) Hx pulmonary embolism (07/2016) r/t HRT/ premarin - no problems since. Hypertension Surgical History S/P cystoscopy with ureteral stent placement (03/01/24) multiple since 2017, most recent 03/01/24 Hx of colonoscopy with polypectomy (04/28/23) Hx of squamous cell carcinoma excision (2013) History of lithotripsy (05/06/18) Laser lithotripsy at [facility] History of oophorectomy (2012) B/L History of hysterectomy (2002) History of tonsillectomy History of tooth extraction History of esophagogastroduodenoscopy (EGD) (10/11/18) Family History Grandfather (Maternal) Family hx of colon cancer Father Coronary heart disease Hyperlipidemia Hypertension Cardiac disorder Mother Hypertension Hyperlipidemia Brother FHx: deafness or hearing loss Social History Smoking Status: Never smoker Second Hand Exposure: No; Do You Dip or Chew Tobacco: No; Hx Alcohol Use: No Hx Substance Use: No Preferred Language: Slovenian Communication Ability: Effective Bottom Stop Attacher Required: No Beliefs That Will Affect Care: None Current Living Situation: Spouse Feels Safe at Home: Yes Assistive Devices: None Review of Systems Review of Systems: 12 point review of systems negative exce pt for otherwise indicated. Physical Exam Constitutional: well developed and well nourished; no acute distress Eyes: + anicteric sclerae; pupils not irregula r Respiratory: normal respiratory effort (Nasal cannula in place) Cardiovascular: well perfused, tachycardic on telemetry Gastrointestinal (Abdomen): Inspection/Auscultation: abdomen normal to inspection; abdomen not distended Musculoskeletal: Extremities: extremities normal to inspection Skin: normal turgor; no rashes and no lesions Neurologic: moves all extremities and awake Psychiatric: Orientation: alert and oriented x 3 Results & Data Vital Signs (Past 12 Hours) Vital Signs Temp Pulse Pulse Resp BP BP Pulse Ox 03/10/24 07:10 110 H 03/10/24 07:02 108 H 89/50 L 03/10/24 06:00 116 H 17 92/48 L 96 03/10/24 05:00 37.7 C H 119 H 03/10/24 03:38 39.1 C H 117 H 24 113/64 97 03/10/24 00:03 109 H 28 H 93 03/10/24 00:00 115/60 03/09/24 23:54 110 H 25 H 94 03/09/24 23:30 123/77 03/09/24 23:25 37.6 C H 113 H 19 139/85 93 08/22/24 23:18 114 H 27 H 94 08/22/24 23:03 119 H 26 H 93 03/09/24 23:03 03/09/24 23:00 139/85 03/09/24 23:00 139/85 03/09/24 22:54 123 H 03/09/24 22:30 39.5 C H 135 H 20 164/89 H 92 O2 Del Method O2 Flow Rate 03/10/24 07:10 03/10/24 07:02 03/10/24 06:00 Room Air 03/10/24 05:00 03/10/24 03:38 Nasal Cannula 2 03/10/24 00:03 03/10/24 00:00 03/09/24 23:54 03/09/24 23:30 03/09/24 23:25 Nasal Cannula 2 03/09/24 23:18 03/09/24 23:03 03/09/24 23:03 Room Air 88 03/09/24 23:00 03/09/24 23:00 03/09/24 22:54 03/09/24 22:30 Room Air PG Care Time/CCT Total # of Minutes Spent Total Time Spent with Patient: Total time spent is greater than 50% in coordination of care (as documented) at patient's floor/unit and/or counseling patient: Coding Level of Care Code 82988 OFFICE CONSULT LVL M Diagnoses Urinary tract infection N39.0 Sepsis A41.9 Fever R50.9 Right ureteral stone N20.1 Pneumonia J18.9
[2024-03-10] MEDS: SODIUM BICARB 8.4% INJ 50 MEQ/50 ML SYR IV STA (07:32)
[2024-03-10] MEDS: POTASSIUM PHOSPHATE 30 MMOL in SODIUM CHLORIDE 0.9% 500 ML IV ONE (07:39)
--- NOTE | 2024-03-10 07:39 | Hospitalist Progress Note ---
Date of Service March 10, 2024 Assessment & Plan (1) Sepsis: Plan: 58 y/o with history of nephrolithiasis who developed sepsis following urological procedure 03/09. Admission data including imaging with CT chest/abdomen/pelvis consistent with possible right sided pyelonephritis and possible bibasilar pneumonia. Remained tachycardic and febrile overnight and has developed hypotension this morning. Lactate 3.5-->3, blood pressure is low however extremities are warm and well-perfused and she is mentating normally So appears to have adequate tissue perfusion. Sepsis with hypotension, may be developing septic shock Possible right sided pyelonephritis, bilateral urinary stents in place Possible bibasilar pneumonia -continue cefepime, will start vancomycin pending cultures -fluid resuscitation - had >3L IV fluid in early ED/admission course. 2L IV NS at 200mL/h. Hold tamsulosin. -may need pressors, maintain MAP of 65, discussed with crewman main battle tank -MRSA nares pending, blood and urine cultures pending -place PICC line because of need for multiple infusions (IV electrolytes, antibiotics, fluid resuscitation) and high potential for needing pressors - Monitor urine output and recheck lactate (2) Pneumonia: Plan: possible bilateral lower lobe pneumonia, potential for aspiration pneumonia - continue antibiotics as above (3) Acute respiratory failure with hypoxia: Plan: related to sepsis and/or pneumonia - continue supplemental oxygen (4) Urinary tract infection: Plan: possible right-sided pyelonephritis/complicated urinary tract infection with recent urological instrumentation and right ureteral stent in place all recent urine cultures have been negative and she did receive perioperative antibiotic urinalysis without bacteria however once Guillory catheter was placed in ED urine appears fairly purulent - treatment as above - urology consulted, reviewed recommendations in note from today (5) Right ureteral stone: Plan: 03/09 Cystoscopy, Ureteronephroscopy, Basket Extraction of the Stone, Inseriton of Stent Catheter - Right(Right) - Gamaliel Pritchard MD (6) Sleep apnea: Plan: Hx RYLIE on CPAP Obesity with BMI 32 - continue CPAP, caution with opioids Plan Hypokalemia - replacing IV, repeat BMP ordered Hypomagnesemia - 4g IV magnesium ordered, recheck mag Hypophosphatemia - replacement and recheck ordered GERD - continue proton pump inhibitor Hypertension - meds held Metformin, insulin resistancemetformin held, glucose checks, as needed short acting insulin this morning she remains critically ill with life-threatening infection, severe sepsis with hypotension and high risk of clinical deterioration morbidity and mortality. I personally spent 45 minutes critical care time on clinical care activities today. Admission and Anticipated Discharge Date Admission Date: March 10, 2024 Subjective right flank/back pain remains severe but she states it has improved compared to before the procedure yesterday feels some shortness of breath, chest tightness. has not been coughing no nausea Physical Exam 2 Physical Exam: PHYSICAL EXAMINATION Last 24h vital signs reviewed, see documentation in flowsheet General: ill-appearing no distress HEENT: Normocephalic, atraumatic, pupils round and equal, sclerae anicteric, no conjunctival injection, moist mucus membranes Lungs: tachypneic but nonlabored, mild bibasilar crackles diminished in bases. no wheezing Heart: tachycardic Regular rate and rhythm, no murmurs. No JVD Abdomen: Soft, nontender, nondistended. Bowel sounds present. right costovertebral angle tenderness present Extremities: Warm, dry, well-perfused. mild lower extremity edema. Neuro: Alert and oriented x 4, face symmetric, moves 4 extremities well Psych: Normal affect and behavior Results & Data Results & Data Vital Signs (Past 12 Hours) Vital Signs Temp Pulse Pulse Resp BP BP Pulse Ox 03/10/24 07:25 111 H 16 96 03/10/24 07:10 110 H 03/10/24 07:02 108 H 89/50 L 03/10/24 06:00 116 H 17 92/48 L 96 03/10/24 05:00 37.7 C H 119 H 03/10/24 03:38 39.1 C H 117 H 24 113/64 97 03/10/24 00:03 109 H 28 H 93 03/10/24 00:00 115/60 03/09/24 23:54 110 H 25 H 94 03/09/24 23:30 123/77 03/09/24 23:25 37.6 C H 113 H 19 139/85 93 03/09/24 23:18 114 H 27 H 94 03/09/24 23:03 119 H 26 H 93 03/09/24 23:03 03/09/24 23:00 139/85 03/09/24 23:00 139/85 03/09/24 22:54 123 H 03/09/24 22:30 39.5 C H 135 H 20 164/89 H 92 O2 Del Method O2 Flow Rate 03/10/24 07:25 Nasal Cannula 2 03/10/24 07:10 03/10/24 07:02 03/10/24 06:00 Room Air 03/10/24 05:00 03/10/24 03:38 Nasal Cannula 2 03/10/24 00:03 03/10/24 00:00 03/09/24 23:54 03/09/24 23:30 03/09/24 23:25 Nasal Cannula 2 03/09/24 23:18 03/09/24 23:03 03/09/24 23:03 Room Air 88 03/09/24 23:00 03/09/24 23:00 03/09/24 22:54 03/09/24 22:30 Room Air Laboratory Results 03/10/24 02:38 03/10/24 02:38 PG Care Time/CCT Total # of Minutes Spent Total Time Spent with Patient: Total time spent is greater than 50% in coordination of care (as documented) at patient's floor/unit and/or counseling patient: Critical Care Time: Yes Total Critical Care Time: 45 Coding Level of Care Code 02965 SUB INP/OBS CARE 3/50MIN (25 - SIGNIFICANT, SEPARATELY IDENTIFIABLE ) Diagnoses Sepsis A41.9 Pneumonia J18.9 Acute respiratory failure with hypoxia J96.01 Urinary tract infection N39.0 Right ureteral stone N20.1 Sleep apnea G47.30 Additional Codes Critical Care Time - Critical Care Time: Yes ([id number])
--- NOTE | 2024-03-10 07:53 | XRay Report ---
SINGLE VIEW CHEST CLINICAL HISTORY: Fever. FINDINGS: An AP, portable, upright chest radiograph is compared to study dated 12/28/2023. The cardiom ediastinal silhouette is top normal for projection. Airspace opacities RCA both lung bases. No large pleural effusion or pneumothorax is identified. The skeletal structures are osteopenic. There are chr onic/healed right-sided rib fracture. IMPRESSION: Dependent airspace opacities likely represent atelectasis. Correlate clinically for evide nce of a superimposed infectious/inflammatory pneumonitis. ACT 112: Negative or not required by law. Electronically signed by: Haim Roberson M.D. 03/10/2024 7:52 AM
[2024-03-10] MEDS: SODIUM CHLORIDE 0.9% 1,000 ML IV SCH ×2 (08:10)
[2024-03-10] MEDS ORDERED: VANCOMYCIN CONSULT ACTIVE PRN ×2 (08:31)
--- NOTE | 2024-03-10 09:29 | Pharmacy Report ---
Pharmacy PK ABX Note - Date of Service March 10, 2024 - Assessment and Plan Assessment 58 year old F receiving vancomycin and cefepime for treatment of pyelonephritis and potential pneumonia. Pertinent microbiologic data includes: Negative MRSA Nasal Swab, urine culture NGTD, blood culture NGTD. Day # 1 of antimicrobial therapy. Plan Vancomycin * Loading dose: 2000 mg IV x 1 * Maintenance dose: 1000 mg IV every 12 hours * Regimen is predicted to achieve target AUC/JEROME of 400-600 mg/L.hr * Trough level ordered for: 03/12/24 Pharmacy will continue to follow and will adjust dose/frequency as necessary. Thank you. Pharmacy has transitioned to AUC monitoring for vancomycin. AUC/JEROME is the preferred PK/PD target and is associated with decreased risk of nephrotoxicity compared to traditional trough targets.
[2024-03-10] MEDS: fentaNYL citrate PF 100 MCG/2 ML VIAL IV ONE (10:03)
[2024-03-10] MEDS: PANTOprazole 40 MG TAB PO SCH (10:03)
--- NOTE | 2024-03-10 11:33 | XRay Report ---
SINGLE VIEW CHEST CLINICAL HISTORY: PICC placement FINDINGS: An AP, portable, upright chest radiograph is compared to study dated 03/09/2024 and correlat ed with chest CT dated 03/10/2024. A right PICC line has been placed. The tip of the catheter projects over the right atrium. The heart is enlarged. The pulmonary vasculature is noncongested. Chronic int erstitial thickening is similar to previous. Dependent airspace opacities are again noted. No large p leural effusion or pneumothorax is seen. The skeletal structures are osteopenic. The bony thorax is g rossly intact. IMPRESSION: 1. A right-sided PICC line has been placed as above. 2. Cardiomegaly without radiographic evidence of congestive failure. 3. There are persistent bibasilar airspace opacities. Correlate clinically. ACT 112: Negative or not required by law. Electronically signed by: Haim Roberson M.D. 03/10/2024 11:31 AM
--- NOTE | 2024-03-10 12:27 | XRay Report ---
XR chest 1V portable HISTORY: PICC tip placement after pulling line back COMPARISON: Chest 03/10/2024. FINDINGS: No pneumothorax. Patchy bibasilar densities persist. Mild pulmonary vascular congestion has improved. The heart remains enlarged. There is an old right rib fracture. There are low lung volumes . The right PICC has been pulled back and now terminates within the SVC. IMPRESSION: 1. The right PICC terminates in the SVC. 2. Patchy bibasilar densities persist and favor a pneumonia. ACT 112: Negative or not required by law. Electronically signed by: Adin Cassidy M.D. 03/10/2024 12:25 PM
[2024-03-10] MEDS: CEFEPIME 2,000 MG in SYRINGE 0 ML IV SCH (12:43)
[2024-03-10] MEDS: VANCOMYCIN HCL 2,000 MG in SODIUM CHLORIDE 0.9% 500 ML IV ONE (12:54)
[2024-03-10] MEDS: ALBUMIN 25% 25 GM/100 ML VIAL IV SCH (13:43)
[2024-03-10 14:49] LABS: Calcium 7.3 mg/dl (8.6-10.3)
[2024-03-10 15:20] LABS: BUN Creatinine Ratio 18.5 (10-20); Est GFR (African American) 64.6 ml/min; Est GFR (Non-African American) 55.8 ml/min; Phosphorus 4.1 mg/dl (2.5-4.9)
[2024-03-10 17:20] LABS: A calco-baum cmplx NotReported Not Detected (NotDetected); Bact fragilis Not Reported Not Detected (NotDetected); Blood Culture Id Panel See PCR Comment (NotDetected); C auris Not Reported Not Detected (NotDetected); CTX-M Resistant Gene Not Detected (NotDetected); Calbicans Not Reported Not Detected (NotDetected); Candida glabrata Not Reported Not Detected (NotDetected); Candida krusei Not Reported Not Detected (NotDetected); Cneoformans/gatti Not Reported Not Detected (NotDetected); Cparapsilosis Not Reported Not Detected (NotDetected); E cloacae compx Not Reported Not Detected (NotDetected); Efaecalis Not Reported Not Detected (NotDetected); Efaecium Not Reported Not Detected (NotDetected); Enterobacterales Not Reported Not Detected (NotDetected); Escherichia coli Not Reported Not Detected (NotDetected); H influenzae Not Reported Not Detected (NotDetected); IMP Resistant Gene Not Detected (NotDetected); K aerogenes Not Reported Not Detected (NotDetected); KPC Resistant Gene Not Detected (NotDetected); Koxytoca Not Reported Not Detected (NotDetected); Kpneumoniae grp Not Reported Not Detected (NotDetected); Lmonocyt Not Reported Not Detected (NotDetected); N meningitidis Not Reported Not Detected (NotDetected); NDM Resistant Gene Not Detected (NotDetected); P aeruginosa Not Reported DETECTED (NotDetected); Proteus spp Not Reported Not Detected (NotDetected); Salmonella spp Not Reported Not Detected (NotDetected); Staph lugdunensis Not Reported Not Detected (NotDetected); Staph spp. Not Reported Not Detected (NotDetected); Staphaureus Not Reported Not Detected (NotDetected); Staphepi Not Reported Not Detected (NotDetected); Stenmaltophilia Not Reported Not Detected (NotDetected); Strep agal(GrpB) Not Reported Not Detected (NotDetected); Strep pneum Not Reported Not Detected (NotDetected); Strep pyog (GrpA) Not Reported Not Detected (NotDetected); Strep spp Not Reported Not Detected (NotDetected); VIM Resistant Gene Not Detected (NotDetected)
[2024-03-10 17:41] LABS: Pseudomonas aeruginosa DETECTED (NotDetected)
--- NOTE | 2024-03-10 18:06 | Communication Note ---
Date of Service: March 10, 2024 Blood culture positive for GNR, Pseudomonas by molecular assay -stop vancomycin, continue cefepime Repeat lactate pending, blood pressure significantly improved compared to this morning and UOP improved
[2024-03-10] MEDS ORDERED: VANCOMYCIN HCL 1,000 MG in SODIUM CHLORIDE 0.9% 250 ML IV SCH (20:00)
[2024-03-11 05:57] LABS: Hematocrit (blood only) 28.1 % (37.0-47.0); Hemoglobin 9.2 g/dl (12.0-16.0); Mean Corpuscular Hemoglobin 27.3 pg (25.0-34.0); Mean Corpuscular Hgb Conc 32.7 g/dL (32.0-36.0); Mean Corpuscular Volume 83.4 fL (80.0-100.0); Platelet Count 240 K/uL (130-400); RDW Coefficient of Variation 14.9 % (11.5-14.5); RDW Standard Deviation 45.4 fL (36.4-46.3); Red Blood Count 3.37 M/uL (4.20-5.40); White Blood Count 20.11 K/ul (4.8-10.8)
[2024-03-11 06:18] LABS: Albumin Level 3.1 gm/dl (3.4-5.0); BUN Creatinine Ratio 22.9 (10-20); Calcium 7.3 mg/dl (8.6-10.3); Creatinine Clr Calc Pharmacy 60.4 ml/min; Est GFR (African American) 63.9 ml/min; Est GFR (Non-African American) 55.1 ml/min; Magnesium 2.1 mg/dl (1.7-2.4); Phosphorus 2.8 mg/dl (2.5-4.9); Potassium 3.8 mmol/L (3.5-5.1)
[2024-03-11] MEDS: FUROSEMIDE 40 MG/4 ML VIAL IV ONE (08:13)
[2024-03-11] MEDS: POTASSIUM CHLORIDE CRTAB 20 MEQ TABCR PO STA (08:13)
[2024-03-11 08:27] LABS: ANC (manual) 19.71 K/uL (1.4-6.5); Anisocytosis Present; Monocytes % (manual) 2 %; Neutrophils # (manual) 19.71 K/uL (1.40-6.50); Neutrophils % (manual) 98 %; Poikilocytosis Present
--- NOTE | 2024-03-11 08:32 | XRay Report ---
SINGLE VIEW CHEST CLINICAL HISTORY: Hypoxia FINDINGS: An AP, portable, upright chest radiograph is compared to study dated 03/10/2024 and correlat ed with chest CT dated 03/10/2024. A right PICC line is unchanged in position. The heart is enlarged. There is pulmonary vascular congestion. Chronic interstitial thickening is similar to previous. There are small pleural effusions with dependent consolidation. No pneumothorax is seen. The skeletal stru ctures are osteopenic. There are chronic/healed right-sided rib fractures. IMPRESSION: 1. Cardiomegaly with mild pulmonary vascular congestion. 2. Small pleural effusions with bibasilar consolidation. ACT 112: Negative or not required by law. Electronically signed by: Haim Roberson M.D. 03/11/2024 8:31 AM
[2024-03-11] MEDS: oxyCODONE HCL IR 5 MG TAB (IMMEDIATE RELEASE) PO PRN (11:50)
--- NOTE | 2024-03-11 12:12 | Urology Progress Note ---
Date of Service March 11, 2024 Assessment & Plan (1) Urinary tract infection: (2) Sepsis: (3) Fever: (4) Right ureteral stone: (5) Pneumonia: Plan 58-year-old female postop day 2 status post ureteroscopy and stone treatment readmitted after ureteroscopy with fevers. Found to have elevated lactate. Concern for possible pneumonia as well as bacteremia. Patient had signs of sepsis. Had undergone volume replacement and resuscitation. Blood cultures are preliminarily showing likely Pseudomonas. Patient's antibiotics have been adjusted and is currently on cefepime. Are awaiting the full results from the blood urine cultures. Chest imaging suggestive of pneumonia. Plan to continue with supportive care, broad-spectrum antibiotics and narrowing coverage as culture data becomes available. On assessment of imaging, ureteral stent is in good position. Patient has been dealing with some fatigue issues. Has been overall tolerating stent without severe major pain or other issues. Will plan to continue with observation. Labs have improved over time. White count is still markedly elevated at 20.11. Creatinine down to 1.09. Lactate has decreased with resuscitation. All labs and vitals were reviewed. Tmax over the last 24 hours was 39.1. Mildly tachycardic this morning. Will plan to continue to monitor with observation. Can de-escalate antibiotics awaiting the full results of the culture. Admission and Anticipated Discharge Date Admission Date: March 10, 2024 Subjective Postop from stone treatment with ureteroscopy and stent placement for obstruction issues. Patient was readmitted secondary to sepsis with elevated lactate significant fevers and chills with tachycardia. Patient was placed on broad-spectrum antibiotics and admitted to the hospital service. Has been undergoing hydration and close monitoring. Patient has been dealing with significant fatigue and low energy. Has not had major severe episodes of pain. Has been tolerating stent. Has noticed some frequency and urgency. Has not had severe pain in the back and flank. Does have occasional burning and irritation. No severe episodes or major changes. No new nausea or vomiting. Review of Systems Review of Systems: All systems reviewed & are unremarkable except as noted in HPI & below Physical Exam Physical Exam: General: Alert in no acute distress. HEENT: Normocephalic Atraumatic. Inspection normal. Cranial Nerves 2-12 Grossly intact. Normal inspection of face. Normal inspection of neck. Psychologic: Normal affect. Respiratory: Nonlabored. No use of accessory muscles. No tachypnea or dyspnea. Cardiovascular: No tachycardia Skin: [place] and Dry. No rashes or visible lesions. Extremities/Lymphatics: No edema Abdomen: Soft Non-distended. No rebound or guarding. Results & Data Vital Signs (Past 12 Hours) Vital Signs Temp Pulse Pulse Resp BP Pulse Ox O2 Del Method 03/11/24 11:27 107 H 20 96 Nasal Cannula 03/11/24 11:19 36.7 C 100 H 18 110/72 96 Nasal Cannula 03/11/24 07:54 37.8 C H 110 H 20 126/76 93 Nasal Cannula 03/11/24 07:43 107 H 18 96 Nasal Cannula 03/11/24 07:38 94 H 03/11/24 07:27 Nasal Cannula 03/11/24 05:30 95 Nasal Cannula 03/11/24 03:54 36.8 C 99 H 20 128/79 93 CPAP O2 Flow Rate 03/11/24 11:27 2 03/11/24 11:19 2 03/11/24 07:54 2 03/11/24 07:43 3 03/11/24 07:38 03/11/24 07:27 6 03/11/24 05:30 3 03/11/24 03:54 PG Care Time/CCT Total # of Minutes Spent Total Time Spent with Patient: Total time spent is greater than 50% in coordination of care (as documented) at patient's floor/unit and/or counseling patient: Coding Level of Care Code 07160 SUB INP/OBS CARE 3/50MIN Diagnoses Urinary tract infection N39.0 Sepsis A41.9 Fever R50.9 Right ureteral stone N20.1 Pneumonia J18.9
--- NOTE | 2024-03-11 16:19 | Hospitalist Progress Note ---
Date of Service March 11, 2024 Assessment & Plan (1) Sepsis: Plan: 58 y/o with history of nephrolithiasis who developed sepsis following urological procedure 03/09. Admission data including imaging with CT chest/abdomen/pelvis consistent with possible right sided pyelonephritis and possible bibasilar pneumonia. Remained tachycardic and febrile overnight and has developed hypotension this morning. Lactate 3.5-->3, blood pressure is low however extremities are warm and well-perfused and she is mentating normally So appears to have adequate tissue perfusion. Sepsis with hypotension caused by Pseudomonas bacteremia, needed large volume fluid resuscitation but not pressors - significantly improved, no longer hypotensive Possible right sided pyelonephritis, bilateral urinary stents in place. Pseudomonas in blood and GNR in urine, likely urinary source of bacteremia Possible bibasilar pneumonia -continue cefepime -has PICC - Monitor urine output and recheck lactate (2) Acute pulmonary edema: Plan: Dyspneic with crackles throughout on exam 03/11 following aggressive IV fluids for sepsis with hypotension on 03/10 Obtained CXR reviewed film which shows pulmonary edema and small pleural effusions -good response to lasix 40 mg IV this AM. -consider repeat dose - defer for now since more tachycardic though BP is fine. Can repeat dose overnight if dyspneic. -AM BMP, continue gentle diuresis as tolerated, liberal use of CPAP (3) Pneumonia: Plan: possible bilateral lower lobe pneumonia, potential for aspiration pneumonia - continue antibiotics as above (4) Acute respiratory failure with hypoxia: Plan: related to sepsis and/or pneumonia as well as pulmonary edema - continue supplemental oxygen - minimal O2 requirement 1-2L currently (5) Urinary tract infection: Plan: possible right-sided pyelonephritis/complicated urinary tract infection with recent urological instrumentation and right ureteral stent in place all recent urine cultures have been negative and she did receive perioperative antibiotic urinalysis without bacteria however once Guillory catheter was placed in ED urine appears fairly purulent. Urine culture with a gram negative jamie - treatment as above - urology consulted, reviewed recommendations in note from today (6) Right ureteral stone: Plan: 03/09 Cystoscopy, Ureteronephroscopy, Basket Extraction of the Stone, Inseriton of Stent Catheter - Right(Right) - Gamaliel Pritchard MD (7) Sleep apnea: Plan: Hx RYLIE on CPAP Obesity with BMI 32 - continue CPAP, caution with opioids Plan Hypokalemia - replaced IV, resolved Hypomagnesemia - replaced IV, resolved Hypophosphatemia - replaced IV, resolved GERD - continue proton pump inhibitor Hypertension - meds held Metformin, insulin resistancemetformin held, glucose checks, as needed short acting insulin DVT prophylaxis - enoxaparin Admission and Anticipated Discharge Date Admission Date: March 10, 2024 Subjective this AM was very short of breath and chest felt tight. This did improve after IV lasix. R flank pain significantly improved Is edematous Physical Exam 2 Physical Exam: PHYSICAL EXAMINATION Last 24h vital signs reviewed, see documentation in flowsheet General: looks much more well today HEENT: Normocephalic, atraumatic, pupils round and equal, sclerae anicteric, no conjunctival injection, moist mucus membranes Lungs: tachypneic with crackles bilaterally anteriorly and posteriorly no wheezing Heart: tachycardic Regular rate and rhythm, no murmurs. Abdomen: Soft, nontender, nondistended. Bowel sounds present. Extremities: Warm, dry, well-perfused. increased bilateral UE and LE edema Neuro: Alert and oriented x 4, face symmetric, moves 4 extremities well Psych: Normal affect and behavior Results & Data Results & Data Vital Signs (Past 12 Hours) Vital Signs Temp Pulse Pulse Resp BP Pulse Ox O2 Del Method 03/11/24 16:05 37.3 C 115 H 18 120/79 92 Nasal Cannula 03/11/24 14:20 99 H 03/11/24 14:02 117 H 18 92 Nasal Cannula 03/11/24 11:27 107 H 20 96 Nasal Cannula 03/11/24 11:19 36.7 C 100 H 18 110/72 96 Nasal Cannula 03/11/24 07:54 37.8 C H 110 H 20 126/76 93 Nasal Cannula 03/11/24 07:43 107 H 18 96 Nasal Cannula 03/11/24 07:38 94 H 03/11/24 07:27 Nasal Cannula 03/11/24 05:30 95 Nasal Cannula O2 Flow Rate 03/11/24 16:05 2 03/11/24 14:20 03/11/24 14:02 1 03/11/24 11:27 2 03/11/24 11:19 2 03/11/24 07:54 2 03/11/24 07:43 3 03/11/24 07:38 03/11/24 07:27 6 03/11/24 05:30 3 Laboratory Results 03/11/24 05:15 03/11/24 05:15 PG Care Time/CCT Total # of Minutes Spent Total Time Spent with Patient: Total time spent is greater than 50% in coordination of care (as documented) at patient's floor/unit and/or counseling patient: Coding Level of Care Code 41976 SUB INP/OBS CARE 3/50MIN Diagnoses Sepsis A41.9 Acute pulmonary edema J81.0 Pneumonia J18.9 Acute respiratory failure with hypoxia J96.01 Urinary tract infection N39.0 Right ureteral stone N20.1 Sleep apnea G47.30
[2024-03-11] MEDS: ENOXAPARIN INJ 40 MG/0.4 ML SYR SQ SCH (17:23)
[2024-03-12] MEDS ORDERED: VANCOMYCIN LEVEL ONE (07:00)
[2024-03-12 07:29] LABS: Hematocrit (blood only) 26.3 % (37.0-47.0); Hemoglobin 8.6 g/dl (12.0-16.0); Mean Corpuscular Hemoglobin 26.9 pg (25.0-34.0); Mean Corpuscular Hgb Conc 32.7 g/dL (32.0-36.0); Mean Corpuscular Volume 82.2 fL (80.0-100.0); Mean Platelet Volume 10.6 fL (9.4-12.4); Platelet Count 201 K/uL (130-400); RDW Standard Deviation 45.1 fL (36.4-46.3); White Blood Count 13.47 K/ul (4.8-10.8)
[2024-03-12 07:52] LABS: Albumin Level 3.1 gm/dl (3.4-5.0); BUN Creatinine Ratio 25.3 (10-20); Calcium 8.1 mg/dl (8.6-10.3); Creatinine Clr Calc Pharmacy 76.1 ml/min; Est GFR (African American) 83.9 ml/min; Est GFR (Non-African American) 72.4 ml/min; Magnesium 2.3 mg/dl (1.7-2.4); Phosphorus 2.1 mg/dl (2.5-4.9)
[2024-03-12 07:57] LABS: Basophils # (auto) 0.03 K/uL (0.00-0.20); Basophils % (auto) 0.2 %; Eosinophils # (auto) 0.16 K/uL (0.00-0.50); Eosinophils % (auto) 1.2 %; Immature Granulocytes # (auto) 0.24 K/uL (0.01-0.20); Immature Granulocytes % (auto) 1.8 %; Lymphocytes # (auto) 0.84 K/uL (1.20-3.40); Lymphocytes % (auto) 6.2 %; Monocytes # (auto) 0.65 K/uL (0.11-0.59); Monocytes % (auto) 4.8 %; Neutrophils # (auto) 11.55 K/uL (1.40-6.50); Neutrophils % (auto) 85.8 %
[2024-03-12] MEDS ORDERED: SENNA 8.6 MG TAB PO PRN (08:03)
[2024-03-12] MEDS ORDERED: POLYETHYLENE (MIRALAX) 17 GM PACK PO PRN (08:03)
[2024-03-12] MEDS: POLYETHYLENE (MIRALAX) 17 GM PACK PO SCH (08:24)
[2024-03-12] MEDS: POTASSIUM CHLORIDE CRTAB 20 MEQ TABCR PO ONE (08:24)
[2024-03-12] MEDS: FUROSEMIDE 40 MG/4 ML VIAL IV ONE (08:24)
--- NOTE | 2024-03-12 10:45 | Hospitalist Progress Note ---
Date of Service March 12, 2024 Assessment & Plan (1) Sepsis: Plan: 58 y/o with history of nephrolithiasis who developed sepsis following urological procedure 03/09. Admission data including imaging with CT chest/abdomen/pelvis consistent with possible right sided pyelonephritis and possible bibasilar pneumonia. Treated for sepsis with cefepime, vancomycin, required large volume fluid resuscitation for hypotension but ultimately did not require pressors. Found to have pseudomonas bacteremia, also grew from urine. Sepsis with hypotension caused by Pseudomonas bacteremia of urinary source, sepsis resolved Right sided pyelonephritis, pseudomonas from urine culture, right sided ureteral stent. Possible bibasilar pneumonia based on CT, seems unlikely with lack of pulmonary symptoms -continue cefepime. Pseudomonas is S to cipro so eventually change to po and complete total 14d for bacteremia and complicated UTI/pyelo -follow up repeat blood culture, ngtd -has PICC (2) Acute pulmonary edema: Plan: Dyspneic with crackles throughout on exam 03/11 following aggressive IV fluids for sepsis, CXR with pulmonary edema -resolving with diuresis. Repeat dose lasix 40 mg IV this am with potassium replacement -BMP reviewed, Cr decreased to 0.87 and potassium/mag normal -AM BMP (3) Pneumonia: Plan: possible bilateral lower lobe pneumonia, potential for aspiration pneumonia/pneumonitis - continue antibiotics as above, paucity of pulmonary symptoms, seems unlikely - on room air and no cough (4) Acute respiratory failure with hypoxia: Plan: related to sepsis and/or pneumonia as well as pulmonary edema - hypoxia resolved (5) Urinary tract infection: Plan: right-sided pyelonephritis/complicated urinary tract infection with recent urological instrumentation and right ureteral stent in place all recent urine cultures have been negative and she did receive perioperative antibiotic urinalysis without bacteria however once Guillory catheter was placed in ED urine appeared purulent. Urine culture with pseudomonas - treatment as above - urology consulted, reviewed recommendations in notes - follow up with Dr. Pritchard (6) Right ureteral stone: Plan: 03/09 Cystoscopy, Ureteronephroscopy, Basket Extraction of the Stone, Inseriton of Stent Catheter - Right(Right) - Gamaliel Pritchard MD (7) Sleep apnea: Plan: Hx RYLIE on CPAP Obesity with BMI 32 - continue CPAP, caution with opioids Plan Hypokalemia - replaced IV, resolved Hypomagnesemia - replaced IV, resolved Hypophosphatemia - replaced IV, resolved GERD - continue proton pump inhibitor Hypertension - meds held. Resume ARB in next few days Metformin, insulin resistancemetformin held, glucose checks, as needed short acting insulin DVT prophylaxis - enoxaparin Admission and Anticipated Discharge Date Admission Date: March 10, 2024 Subjective Feels much better No more R flank pain except sometimes stent tugging Shortness of breath significantly improved, large UOP after lasix IV this am Not coughing, on room air Physical Exam 2 Physical Exam: PHYSICAL EXAMINATION Last 24h vital signs reviewed, see documentation in flowsheet General: sitting up in chair looks MUCH better HEENT: Normocephalic, atraumatic, pupils round and equal, sclerae anicteric, no conjunctival injection, moist mucus membranes Lungs: normal resp effort, slight bibasilar crackles, sig improved Heart: tachycardic Regular rate and rhythm, no murmurs. Abdomen: Soft, nontender, nondistended. Bowel sounds present. R CVA tenderness resolved Extremities: Warm, dry, well-perfused. slight bilateral UE and LE edema Neuro: Alert and oriented x 4, face symmetric, moves 4 extremities well Psych: Normal affect and behavior Results & Data Results & Data Vital Signs (Past 12 Hours) Vital Signs Temp Pulse Pulse Resp BP Pulse Ox O2 Del Method 03/12/24 08:29 36.7 C 96 H 18 143/88 H 92 Room Air 03/12/24 07:14 83 03/12/24 07:12 89 18 96 Nasal Cannula 03/12/24 02:36 37.2 C 97 H 20 155/89 H 94 CPAP 03/11/24 22:47 37.2 C 89 20 118/75 93 CPAP O2 Flow Rate 03/12/24 08:29 03/12/24 07:14 03/12/24 07:12 2 03/12/24 02:36 4 03/11/24 22:47 2 Laboratory Results 03/12/24 06:53 03/12/24 06:53 PG Care Time/CCT Total # of Minutes Spent Total Time Spent with Patient: Total time spent is greater than 50% in coordination of care (as documented) at patient's floor/unit and/or counseling patient: Coding Level of Care Code 23101 SUB INP/OBS CARE 2/35MIN Diagnoses Sepsis A41.9 Acute pulmonary edema J81.0 Pneumonia J18.9 Acute respiratory failure with hypoxia J96.01 Urinary tract infection N39.0 Right ureteral stone N20.1 Sleep apnea G47.30
[2024-03-12] MEDS: ONDANSETRON 4 MG OD TAB PO PRN (15:13)
--- NOTE | 2024-03-13 07:27 | Urology Progress Note ---
Date of Service March 13, 2024 Assessment & Plan (1) Urinary tract infection: Plan: Pseudomonal UTI should be appropriately treated with cefepime. Agree with eventually switching to oral ciprofloxacin based on her culture results. 2-week course sounds reasonable and should cover her through the time of stent removal in the office. Continue to monitor urine output and vital signs. (2) Sepsis: (3) Right ureteral stone: Plan: Right ureteral stone was removed. Stent will remain in place until her appointment next week for removal in the office. Plan Urology will follow along Admission and Anticipated Discharge Date Admission Date: March 10, 2024 Subjective Continues feeling better, still having some subjective fevers/chills Remains on cefepime for pseudomonal UTI/bacteremia. Repeat blood cultures negative at 24 hours. Feels like her breathing has improved after diuresis. Receiving nebulizer treatment this morning. AM labs pending Physical Exam Physical Exam: Resting in bed, receiving nebulizer treatment, NAD Results & Data Vital Signs (Past 12 Hours) Vital Signs Temp Pulse Resp BP Pulse Ox O2 Del Method 03/13/24 07:08 85 16 94 Room Air 03/12/24 20:20 36.9 C 105 H 16 132/80 92 Room Air 03/12/24 20:06 37.0 C 110 H 18 151/83 H 94 Room Air 03/12/24 20:00 Room Air, CPAP 03/12/24 19:45 89 18 92 Room Air PG Care Time/CCT Total # of Minutes Spent Total Time Spent with Patient: Total time spent is greater than 50% in coordination of care (as documented) at patient's floor/unit and/or counseling patient: Coding Level of Care Code 40693 SUB INP/OBS CARE 08/12MIN Diagnoses Urinary tract infection N39.0 Sepsis A41.9 Right ureteral stone N20.1
[2024-03-13 07:36] LABS: Hematocrit (blood only) 28.4 % (37.0-47.0); Hemoglobin 9.5 g/dl (12.0-16.0); Mean Corpuscular Hemoglobin 27.1 pg (25.0-34.0); Mean Corpuscular Hgb Conc 33.5 g/dL (32.0-36.0); Mean Corpuscular Volume 80.9 fL (80.0-100.0); Mean Platelet Volume 10.7 fL (9.4-12.4); Platelet Count 229 K/uL (130-400); RDW Coefficient of Variation 14.8 % (11.5-14.5); RDW Standard Deviation 43.6 fL (36.4-46.3); Red Blood Count 3.51 M/uL (4.20-5.40); White Blood Count 10.11 K/ul (4.8-10.8)
[2024-03-13 07:52] LABS: Calcium 8.5 mg/dl (8.6-10.3); Creatinine Clr Calc Pharmacy 78.7 ml/min; Est GFR (African American) 87.6 ml/min; Est GFR (Non-African American) 75.5 ml/min; Magnesium 2.1 mg/dl (1.7-2.4)
[2024-03-13] MEDS: TAMSULOSIN HCL 0.4 MG CAP PO SCH (08:01)
--- NOTE | 2024-03-13 15:04 | Hospitalist Progress Note ---
Date of Service March 13, 2024 Assessment & Plan (1) Sepsis: Plan: 58 y/o with history of nephrolithiasis who developed sepsis following urological procedure 03/09. Admission data including imaging with CT chest/abdomen/pelvis consistent with possible right sided pyelonephritis and possible bibasilar pneumonia. Treated for sepsis with cefepime, vancomycin, required large volume fluid resuscitation for hypotension but ultimately did not require pressors. Found to have pseudomonas bacteremia, also grew from urine. Sepsis with hypotension caused by Pseudomonas bacteremia of urinary source, sepsis resolved Right sided pyelonephritis, pseudomonas from urine culture, right sided ureteral stent. Possible bibasilar pneumonia based on CT, seems unlikely with lack of pulmonary symptoms -continue cefepime. Pseudomonas is S to cipro so eventually change to po and complete total 14d for bacteremia and complicated UTI/pyelo -follow up repeat blood culture, no growth 48 hours -has PICC (2) Acute pulmonary edema: Plan: Dyspneic with crackles throughout on exam 03/11 following aggressive IV fluids for sepsis, CXR with pulmonary edema -resolving with diuresis has lasix IV x2 -BMP reviewed, Cr decreased to 0.87 and potassium/mag normal no crackles on exam, swelling has improved. no further diuresis ordered today (3) Pneumonia: Plan: possible bilateral lower lobe pneumonia, potential for aspiration pneumonia/pneumonitis - continue antibiotics as above, paucity of pulmonary symptoms, seems unlikely - on room air and no cough (4) Acute respiratory failure with hypoxia: Plan: related to sepsis and/or pneumonia as well as pulmonary edema - hypoxia resolved (5) Urinary tract infection: Plan: right-sided pyelonephritis/complicated urinary tract infection with recent urol ogical instrumentation and right ureteral stent in place all recent urine cultures have been negative and she did receive perioperative antibiotic urinalysis without bacteria however once Guillory catheter was placed in ED urine appeared purulent. Urine culture with pseudomonas - treatment as above - urology consulted - follow up with Dr. Pritchard for stent removal (6) Right ureteral stone: Plan: 03/09 Cystoscopy, Ureteronephroscopy, Basket Extraction of the Stone, Inseriton of Stent Catheter - Right(Right) - Gamaliel Pritchard MD (7) Sleep apnea: Plan: Hx RYLIE on CPAP Obesity with BMI 32 - continue CPAP, caution with opioids Plan Hypokalemia - replaced IV, resolved Hypomagnesemia - replaced IV, resolved Hypophosphatemia - replaced IV, resolved GERD - continue proton pump inhibitor Hypertension - meds held. Resume losartan tomorrow Metformin, insulin resistancemetformin held, glucose checks, as needed short acting insulin DVT prophylaxis - enoxaparin Dispo: continued inpatient stay, hopeful discharge tomorrow updated at bedside Admission and Anticipated Discharge Date Admission Date: March 10, 2024 Subjective Patient seen just after breakfast, present at bedside. States that she is feeling much better, no pain from stent. Does report subjec tive fevers/chills every 12 hours. tolerating IV cefepime Review of Systems Review of Systems: All systems reviewed & are unremarkable except as noted in Subjective Physical Exam Physical Exam: General: NAD, VS as above, sitting up in bed, pleasant Resp: normal respiratory effort, lungs clear to auscultation CV: RRR, no murmur, Abd: normal bowel sounds, non tender Extremities: Moves all extremities, no edema - pt reports legs look to be baseline, hand swelling is much improved Neuro: A&O x3, Skin: intact, no lesions noted Results & Data Results & Data Vital Signs (Past 12 Hours) Vital Signs Temp Pulse Pulse Resp BP Pulse Ox O2 Del Method 03/13/24 14:05 104 H 16 93 Room Air 03/13/24 12:25 37.0 C 86 16 142/92 H 92 Room Air 03/13/24 10:38 90 18 92 Room Air 03/13/24 07:56 36.9 C 88 16 146/98 H 92 Room Air 03/13/24 07:08 85 16 94 Room Air Laboratory Results cbc and chemistry reviewed PG Care Time/CCT Total # of Minutes Spent Total Time Spent with Patient: Total time spent is greater than 50% in coordination of care (as documented) at patient's floor/unit and/or counseling patient: Coding Level of Care Code 09936 SUB INP/OBS CARE 3/50MIN Diagnoses Sepsis A41.9 Acute pulmonary edema J81.0 Pneumonia J18.9 Acute respiratory failure with hypoxia J96.01 Urinary tract infection N39.0 Right ureteral stone N20.1 Sleep apnea G47.30
[2024-03-14 06:14] LABS: Hematocrit (blood only) 28.8 % (37.0-47.0); Hemoglobin 9.7 g/dl (12.0-16.0); Mean Corpuscular Hemoglobin 27.1 pg (25.0-34.0); Mean Corpuscular Hgb Conc 33.7 g/dL (32.0-36.0); Mean Corpuscular Volume 80.4 fL (80.0-100.0); Mean Platelet Volume 10.2 fL (9.4-12.4); Platelet Count 229 K/uL (130-400); RDW Coefficient of Variation 14.5 % (11.5-14.5); RDW Standard Deviation 42.9 fL (36.4-46.3); Red Blood Count 3.58 M/uL (4.20-5.40); White Blood Count 10.89 K/ul (4.8-10.8)
[2024-03-14 07:02] LABS: BUN Creatinine Ratio 22.4 (10-20); Calcium 8.6 mg/dl (8.6-10.3); Est GFR (African American) 98.8 ml/min; Est GFR (Non-African American) 85.3 ml/min; Potassium 3.8 mmol/L (3.5-5.1)
[2024-03-14] MEDS: LOSARTAN POTASSIUM 50 MG TAB PO SCH (07:41)
--- NOTE | 2024-03-14 08:49 | Urology Progress Note ---
<Statement entered by Gamaliel Pritchard MD - 03/14/24 15:55> I have seen and discussed Ms. Felix's case with ЮЛИЯ Coughlin and agree with the above documentation. Unclear etiology for recurrent fevers overnight since blood cultures have cleared and she should be on appropriate antibiotic coverage. She reports some discomfort in the left side of the chest, likely not related to her surgery on the right kidney. Due to recent instrumentation, recent bacteremia, will discuss possible reimaging with medicine team. For now, would continue broad-spectrum antibiotics. If she continues to spike fevers, would consider repeat blood cultures as well. Urology will follow along. -Gamaliel Pritchard MD. Date of Service March 14, 2024 Assessment & Plan (1) Urinary tract infection: (2) Sepsis: Plan 58 y/o with history of nephrolithiasis who developed sepsis following urological procedure 03/09. Admission data including imaging with CT chest/abdomen/pelvis consistent with possible right sided pyelonephritis and possible bibasilar pneumonia. Found to have pseudomonas UTI/bacteremia. Afebrile with stable vitals this morning. Tmax last night was 38.1C. Labs today show a white count of 10.89, hemoglobin 9.7, creatinine 0.76. Pseudomonal UTI should be appropriately treated with cefepime. Agree with eventually switching to oral ciprofloxacin based on her culture results. 2-week course sounds reasonable and should cover her through the time of stent removal in the office. Repeat blood culture are prelim no growth x 48 hours. She is voiding spontaneously. Continue to monitor. Bladder scan PRN. Continue supportive care and antibiotic therapy. Will plan for stent removal next week in the urology office as scheduled. Urology will follow along. Admission and Anticipated Discharge Date Admission Date: March 10, 2024 Subjective Pt seen at bedside this AM Awake, resting in bed on arrival No acute distress She had a fever last evening Feels fatigued today Denies any pain or discomfort at present Tolerating the stent with minimal bother Voiding without issue Review of Systems Constitutional: as per Subjective / HPI Genitourinary: as per Subjective / HPI Physical Exam Constitutional: no acute distress Respiratory: no respiratory distress and no labored breathing Neurologic: awake Psychiatric: A+Ox3, euthymic affect Results & Data Vital Signs (Past 12 Hours) Vital Signs Temp Pulse Resp BP Pulse Ox Pulse Ox O2 Del Method 03/14/24 07:30 36.5 C 90 16 122/79 93 Room Air 03/14/24 07:19 102 H 18 92 Room Air 03/14/24 07:00 93 03/14/24 06:35 37.7 C H 03/13/24 23:36 36.9 C O2 Del Method 03/14/24 07:30 03/14/24 07:19 03/14/24 07:00 Room Air 03/14/24 06:35 03/13/24 23:36 PG Care Time/CCT Total # of Minutes Spent Total Time Spent with Patient: Total time spent is greater than 50% in coordination of care (as documented) at patient's floor/unit and/or counseling patient: Coding Level of Care Code 99067 SUB INP/OBS CARE 2MIN Diagnoses Urinary tract infection N39.0 Sepsis A41.9
[2024-03-14] MEDS ORDERED: ALBUT/IPRATROP 3MG/0.5MG NEB 3 ML VIAL NEB PRN (10:46)
[2024-03-14] MEDS: OPTIRAY 320 100ml IV ONE (16:27)
--- NOTE | 2024-03-14 16:42 | Hospitalist Progress Note ---
Date of Service March 14, 2024 Assessment & Plan (1) Sepsis: Plan: 58 y/o with history of nephrolithiasis who developed sepsis following urological procedure 03/09. Admission data including imaging with CT chest/abdomen/pelvis consistent with possible right sided pyelonephritis and possible bibasilar pneumonia. Treated for sepsis with cefepime, vancomycin, required large volume fluid resuscitation for hypotension but ultimately did not require pressors. Found to have pseudomonas bacteremia, also grew from urine. Sepsis with hypotension caused by Pseudomonas bacteremia of urinary source, sepsis resolved Right sided pyelonephritis, pseudomonas from urine culture, right sided ureteral stent. Possible bibasilar pneumonia based on CT, seems unlikely with lack of pulmonary symptoms -continue cefepime. Pseudomonas is S to cipro so eventually change to po and complete total 14d for bacteremia and complicated UTI/pyelo -follow up repeat blood culture, no growth 48 hours -patient continues to have fevers despite appropriate antibiotic treatment - repeat CTAP ordered looking for renal abscess - test for COVID - add azithromycin for atypical coverage for PNA - trend CRP -has PICC (2) Acute pulmonary edema: Plan: Dyspneic with crackles throughout on exam 03/11 following aggressive IV fluids for sepsis, CXR with pulmonary edema -resolving with diuresis has lasix IV x2 no crackles on exam, swelling has improved. no further diuresis required (3) Pneumonia: Plan: possible bilateral lower lobe pneumonia, potential for aspiration pneumonia/pneumonitis - continue antibiotics as above, paucity of pulmonary symptoms, seems unlikely - on room air and no cough Neb treatements changed to PRN (4) Acute respiratory failure with hypoxia: Plan: related to sepsis and/or pneumonia as well as pulmonary edema - hypoxia resolved (5) Urinary tract infection: Plan: right-sided pyelonephritis/complicated urinary tract infection with recent urological instrumentation and right ureteral stent in place all recent urine cultures have been negative and she did receive perioperative antibiotic urinalysis without bacteria however once Guillory catheter was placed in ED urine appeared purulent. Urine culture with pseudomonas - treatment as above - urology consulted - follow up with Dr. Pritchard for stent removal (6) Right ureteral stone: Plan: 03/09 Cystoscopy, Ureteronephroscopy, Basket Extraction of the Stone, Inseriton of Stent Catheter - Right(Right) - Gamaliel Pritchard MD (7) Sleep apnea: Plan: Hx RYLIE on CPAP Obesity with BMI 32 - continue CPAP, caution with opioids Plan Hypokalemia - replaced IV, resolved Hypomagnesemia - replaced IV, resolved Hypophosphatemia - replaced IV, resolved GERD - continue proton pump inhibitor Hypertension - continue losartan Metformin, insulin resistancemetformin held, glucose checks, as needed short acting insulin DVT prophylaxis - enoxaparin Dispo: continued inpatient stay, updated at bedside 03/13 & 03/14 Admission and Anticipated Discharge Date Admission Date: March 10, 2024 Supervising Physician Co-Signing Physician Notes Attending Attestation - Chart reviewed, care plan d/w DANETTE Rossi. I agree w/ the lin components of her documentation. Pipo Barba MD Subjective Patient seen twice today - this morning she was feeling well similar to yesterday morning, can tell when the fevers are coming on. Good appetite, no stent pain or urinary pain this afternoon - she had just had a low grade fever and chills. only pain she reports is under bilateral breasts but also reports not wearing a bra for multiple days Review of Systems Review of Systems: All systems reviewed & are unremarkable except as noted in Subjective Physical Exam Physical Exam: General: NAD, VS as above, sitting up in bed, pleasant Resp: normal respiratory effort, lungs clear to auscultation CV: RRR, no murmur, Abd: normal bowel sounds, non tender, soft Extremities: Moves all extremities, no edema - pt reports legs look to be baseline, hand swelling is much improved Neuro: A&O x3, Skin: intact, no lesions noted Results & Data Results & Data Vital Signs (Past 12 Hours) Vital Signs Temp Pulse Resp BP Pulse Ox Pulse Ox O2 Del Method 03/14/24 15:15 37.6 C H 95 H 16 155/91 H 92 Room Air 03/14/24 14:00 37.8 C H 03/14/24 07:30 36.5 C 90 16 122/79 93 Room Air 03/14/24 07:19 102 H 18 92 Room Air 03/14/24 07:15 Room Air 03/14/24 07:00 93 03/14/24 06:35 37.7 C H O2 Del Method 03/14/24 15:15 03/14/24 14:00 03/14/24 07:30 03/14/24 07:19 03/14/24 07:15 03/14/24 07:00 Room Air 03/14/24 06:35 Laboratory Results CBC and chemistry reviewed PG Care Time/CCT Total # of Minutes Spent Total Time Spent with Patient: Total time spent is greater than 50% in coordination of care (as documented) at patient's floor/unit and/or counseling patient: Coding Level of Care Code 29002 SUB INP/OBS CARE 3/50MIN Diagnoses Sepsis A41.9 Acute pulmonary edema J81.0 Pneumonia J18.9 Acute respiratory failure with hypoxia J96.01 Urinary tract infection N39.0 Right ureteral stone N20.1 Sleep apnea G47.30
[2024-03-14 17:15] LABS: C Reactive Protein 20.55 mg/dl (0-0.5)
--- NOTE | 2024-03-14 17:24 | CT Scan Report ---
CT SCAN OF THE ABDOMEN AND PELVIS WITH IV CONTRAST CLINICAL HISTORY: Fever. COMPARISON STUDY: Abdominal CT dated 03/10/2024 and 02/18/2018. TECHNIQUE: Following the IV administration of 94 cc of Optiray 320, CT scan of the abdomen and pelvi s is performed from the lung bases to the proximal femora. Images are reviewed in the axial, sagittal , and coronal planes. IV contrast was administered without complication. A dose lowering technique wa s utilized adhering to the principles of ALARA. FINDINGS: Lung bases: The heart is normal in size noting a small pericardial effusion. There are small pleural effusions with dependent consolidation. A small hiatal hernia is noted. Liver: The contrast-enhanced liver is normal in size, contour, and attenuation. There is no intrahepa tic biliary ductal dilatation. The hepatic veins and portal veins are patent. A 10 mm right lobe cyst is unchanged. Gallbladder: Unremarkable. Spleen: Normal in size and attenuation. Pancreas: Unremarkable. Adrenal glands: Unremarkable. Kidneys: The right kidney appears mildly enlarged and edematous. A right ureteral stent is in appropr iate position. There is no hydronephrosis no calcifications are identified in the right ureter along the course of the stent. Right renal enhancement is heterogeneous. The left kidney enhances normally. There are indeterminate foci of hypoenhancement within the right renal cortex seen on images #126, # 159, and #179. These measure up to 2.4 cm and may represent pyelonephritis or foci of phlegmonous josé miguel nge. No oral contrast/renal fluid collection is seen. Abdominal vasculature: The abdominal aorta is normal in course and caliber noting scattered foci of a therosclerotic calcification. Bowel: There is no bowel obstruction. The appendix is well-visualized and normal. Peritoneum: There is no intraperitoneal free air or abdominal ascites. There is a fat-containing umbi lical hernia. Lymphadenopathy: None. Pelvic viscera: The bladder is partially distended and appears mildly thick-walled. There is a nonspe cific focus of intraluminal gas. The bladder contains the distal end of a right ureteral stent. The u terus is surgically absent. No adnexal lesion is seen. Skeletal structures: The skeletal structures are osteopenic. Mild degenerative change is noted in the spine. No lytic or blastic lesions are seen. IMPRESSION: 1. The bladder is partially decompressed and appears thick walled. There is nonspecific intraluminal gas which may be related to instrumentation, and the bladder contains the distal end of a ureteral st ent. Correlate with clinical findings and urinalysis. 2. The right ureteral stent is in appropriate position. No hydronephrosis is seen. 3. The right kidney appears mildly enlarged and edematous, and shows heterogeneous enhancement. 4. There are foci of diminished parenchymal enhancement within the right kidney. This could potential ly represent pyelonephritis or phlegmonous change. No fluid collection is seen to indicate renal absc ess. 5. Small pleural effusions with dependent consolidation. 6. Additional findings as above. ACT 112: Negative or not required by law. Electronically signed by: Haim Roberson M.D. 03/14/2024 5:22 PM
[2024-03-14] MEDS: AZITHROMYCIN 500 MG in DEXTROSE 5% 250 ML IV SCH (19:00)
[2024-03-15 06:34] LABS: Basophils # (auto) 0.06 K/uL (0.00-0.20); Basophils % (auto) 0.5 %; Eosinophils # (auto) 0.32 K/uL (0.00-0.50); Eosinophils % (auto) 2.5 %; Hemoglobin 9.6 g/dl (12.0-16.0); Immature Granulocytes # (auto) 0.15 K/uL (0.01-0.20); Immature Granulocytes % (auto) 1.2 %; Lymphocytes # (auto) 2.05 K/uL (1.20-3.40); Lymphocytes % (auto) 15.9 %; Mean Corpuscular Hemoglobin 26.7 pg (25.0-34.0); Mean Corpuscular Hgb Conc 33.1 g/dL (32.0-36.0); Mean Corpuscular Volume 80.8 fL (80.0-100.0); Mean Platelet Volume 10.5 fL (9.4-12.4); Monocytes # (auto) 1.48 K/uL (0.11-0.59); Monocytes % (auto) 11.5 %; Neutrophils # (auto) 8.86 K/uL (1.40-6.50); Neutrophils % (auto) 68.4 %; Platelet Count 270 K/uL (130-400); RDW Coefficient of Variation 14.8 % (11.5-14.5); Red Blood Count 3.59 M/uL (4.20-5.40); White Blood Count 12.92 K/ul (4.8-10.8)
[2024-03-15 06:59] LABS: BUN Creatinine Ratio 21.7 (10-20); C Reactive Protein 20.47 mg/dl (0-0.5); Calcium 8.6 mg/dl (8.6-10.3); Creatinine Clr Calc Pharmacy 76.8 ml/min; Est GFR (African American) 88.8 ml/min; Est GFR (Non-African American) 76.6 ml/min; Potassium 3.4 mmol/L (3.5-5.1)
[2024-03-15 07:27] VITALS: RESP 16
[2024-03-15] MEDS: POTASSIUM CHLORIDE CRTAB 20 MEQ TABCR PO STA (08:34)
--- NOTE | 2024-03-15 10:15 | Urology Progress Note ---
Date of Service March 15, 2024 Assessment & Plan (1) Urinary tract infection: (2) Fever: (3) Pneumonia: Plan 58-year-old female with recurrent fevers s/p ureteroscopy. Most recent blood cultures were negative, previous cultures demonstrated Pseudomonas and blood in urine. Should be appropriately covered with cefepime, however developed recurrent fevers. CT scan suggestive of ongoing pyelonephritis versus phlegmonous change, no obvious abscess that would require drainage. Agree with azithromycin for empiric pneumonia coverage. Continue cefepime and continue to monitor. If she continues to have fevers, would consider repeating blood cultures and urine culture to ensure that there was a lot of different organism going untreated. If she remains afebrile, reasonable to switch to ciprofloxacin based on prior culture for continued course of antibiotics as an outpatient. Admission and Anticipated Discharge Date Admission Date: March 10, 2024 Subjective Feels like her fever broke overnight, denies any recurrent fever since then. Denies any flank pain or dysuria. No hematuria. Not having any issues with the stent. Repeat CT scan from 03/14/2024 demonstrating edematous right kidney with heterogeneous enhancement, 2.4 cm region of hypoenhancement, possibly pyelonephritis or phlegmonous change. No overt renal abscess. No hydro nephrosis or stones present. Stent is in good position. Small pleural effusions with dependent consolidation, per radiology. She remains on cefepime and azithromycin was added for possible pneumonia coverage WBC slightly increased this morning (12.92 from 10.89) Most recent blood culture from 03/11 was negative. CRP elevated at 20.47 Physical Exam Physical Exam: Seated in bed, NAD Breathing comfortably on room air Mild right CVA tenderness to percussion Results & Data Vital Signs (Past 12 Hours) Vital Signs Temp Pulse Pulse Resp BP Pulse Ox O2 Del Method 03/15/24 08:19 156/99 H 03/15/24 07:26 36.7 C 93 H 16 155/95 H 92 Room Air 03/15/24 00:40 37.5 C 98 H 17 154/84 H 94 Room Air PG Care Time/CCT Total # of Minutes Spent Total Time Spent with Patient: Total time spent is greater than 50% in coordination of care (as documented) at patient's floor/unit and/or counseling patient: Coding Level of Care Code 54126 SUB INP/OBS CARE 1/25MIN Diagnoses Urinary tract infection N39.0 Fever R50.9 Pneumonia J18.9
--- NOTE | 2024-03-15 12:52 | Hospitalist Progress Note ---
Date of Service March 15, 2024 Assessment & Plan (1) Sepsis: Plan: 58 y/o with history of nephrolithiasis who developed sepsis following urological procedure 03/09. Admission data including imaging with CT chest/abdomen/pelvis consistent with possible right sided pyelonephritis and possible bibasilar pneumonia. Treated for sepsis with cefepime, vancomycin, required large volume fluid resuscitation for hypotension but ultimately did not require pressors. Found to have pseudomonas bacteremia, also grew from urine. Sepsis with hypotension caused by Pseudomonas bacteremia of urinary source, sepsis resolved Right sided pyelonephritis, pseudomonas from urine culture, right sided ureteral stent. Possible bibasilar pneumonia based on CT, seems unlikely with lack of pulmonary symptoms -continue cefepime. Pseudomonas is S to cipro so eventually change to po and complete total 14d for bacteremia and complicated UTI/pyelo -follow up repeat blood culture, no growth 48 hours -patient continues to have fevers despite appropriate antibiotic treatment - repeat CTAP: no renal abscess - COVID negative - continue azithromycin for atypical coverage for PNA - trend CRP -has PICC AM CBC, BMP and CRP (2) Acute pulmonary edema: Plan: Dyspneic with crackles throughout on exam 03/11 following aggressive IV fluids for sepsis, CXR with pulmonary edema -resolving with diuresis has lasix IV x2 no crackles on exam, swelling has improved. no further diuresis required (3) Pneumonia: Plan: possible bilateral lower lobe pneumonia, potential for aspiration pneumonia/pneumonitis - continue antibiotics as above, paucity of pulmonary symptoms, seems unlikely - on room air and no cough Neb treatements changed to PRN (4) Acute respiratory failure with hypoxia: Plan: related to sepsis and/or pneumonia as well as pulmonary edema - hypoxia resolved (5) Urinary tract infection: Plan: right-sided pyelonephritis/complicated urinary tract infection with recent urological instrumentation and right ureteral stent in place all recent urine cultures have been negative and she did receive perioperative antibiotic urinalysis without bacteria however once Guillory catheter was placed in ED urine appeared purulent. Urine culture with pseudomonas - treatment as above - urology consulted - follow up with Dr. Pritchard for stent removal (6) Right ureteral stone: Plan: 03/09 Cystoscopy, Ureteronephroscopy, Basket Extraction of the Stone, Inseriton of Stent Catheter - Right(Right) - Gamaliel Pritchard MD (7) Sleep apnea: Plan: Hx RYLIE on CPAP Obesity with BMI 32 - continue CPAP, caution with opioids Plan Hypokalemia - replaced IV, resolved Hypomagnesemia - replaced IV, resolved Hypophosphatemia - replaced IV, resolved GERD - continue proton pump inhibitor Hypertension - continue losartan Metformin, insulin resistancemetformin held, glucose checks, as needed short acting insulin DVT prophylaxis - enoxaparin Dispo: continued inpatient stay, updated at bedside 03/13 & 03/14, 03/15 Admission and Anticipated Discharge Date Admission Date: March 10, 2024 Supervising Physician Co-Signing Physician Notes Attending Attestation - Chart reviewed, care plan d/w DANETTE Rossi. I agree w/ the lin components of her documentation. Pipo Barba MD Subjective PAtient seen sitting up in bed, present at bedside. States she felt febrile for most of the night, but finally broke around 4 am. Appetite improving this morning Patient reports cleaning out her CPAP machine and changing the parts when she is supposed to Review of Systems Review of Systems: All systems reviewed & are unremarkable except as noted in Subjective Physical Exam 2 Physical Exam: General: NAD, VS as above, sitting up in bed, pleasant Resp: normal respiratory effort, diminished in the bases CV: RRR, no murmur, Abd: normal bowel sounds, non tender, soft Extremities: Moves all extremities, no edema Neuro: A&O x3, Skin: intact, no lesions noted Results & Data Results & Data Vital Signs (Past 12 Hours) Vital Signs Temp Pulse Resp BP Pulse Ox O2 Del Method 03/15/24 10:47 164/97 H 03/15/24 08:19 156/99 H 03/15/24 07:50 Room Air 03/15/24 07:26 36.7 C 93 H 16 155/95 H 92 Room Air Laboratory Results CBC and chemistry and CRP reviewed Diagnostic Findings CT abdomen and pelvis reviewed PG Care Time/CCT Total # of Minutes Spent Total Time Spent with Patient: Total time spent is greater than 50% in coordination of care (as documented) at patient's floor/unit and/or counseling patient: Coding Level of Care Code 79204 SUB INP/OBS CARE 3/50MIN Diagnoses Sepsis A41.9 Acute pulmonary edema J81.0 Pneumonia J18.9 Acute respiratory failure with hypoxia J96.01 Urinary tract infection N39.0 Right ureteral stone N20.1 Sleep apnea G47.30
[2024-03-15 19:44] VITALS: O2SAT 95
[2024-03-16 07:27] VITALS: PULSE 83; TEMP 97.9
--- NOTE | 2024-03-16 08:08 | Urology Progress Note ---
<Statement entered by Gamaliel Pritchard MD - 03/16/24 10:54> I have seen and discussed Ms. Felix and agree with above documentation. Feeling well this morning. WBC and CRP both decreasing. Remains on antibiotics for UTI and possible pneumonia. We will plan on stent removal/09/23/2023. Plan to continue antibiotics through that time. Reasonable for discharge home today. -Gamaliel Pritchard MD. Date of Service March 16, 2024 Assessment & Plan (1) Pneumonia: (2) Urinary tract infection: (3) Sepsis: (4) Right ureteral stone: Plan 58 y/o with history of nephrolithiasis who developed sepsis following right ureteroscopy with stone removal on 03/09. Admission data including imaging with CT chest/abdomen/pelvis consistent with possible right sided pyelonephritis and possible bibasilar pneumonia. Found to have pseudomonas UTI/bacteremia. -Patient hypertensive, otherwise vital signs within normal limits, afebrile -Creatinine 0.69, WBC 11.69, hemoglobin 9.7, CRP 12.3 -Patient continues to take cefepime and azithromycin for coverage of bacteremia and pneumonia. Will continue antibiotics after discharge. -Last fever noted on 03/14/2024-if fevers return could repeat cultures -Voiding spontaneously without any complications -Tolerating stent appropriately, has scheduled stent removal next week-03/21 -Continue supportive care and other medical management per primary team -Urology will continue to follow Plan of care reviewed with Dr. Pritchard Admission and Anticipated Discharge Date Admission Date: March 10, 2024 Subjective Patient assessed at bedside Awake, resting comfortably in chair No acute distress Denies fevers, chills, nausea, vomiting Denies any discomfort or pain with the stent-tolerating appropriately Voiding without frequency, urgency, gross hematuria, dysuria Does have a mild cough Labs reviewed 03/16/24: Creatinine 0.69 WBCs 11.69 Hemoglobin 9.[address] on 03/14/24 IMPRESSION: 1. The bladder is partially decompressed and appears thick walled. There is nonspecific intraluminal gas which may be related to instrumentation, and the bladder contains the distal end of a ureteral stent. Correlate with clinical findings and urinalysis. 2. The right ureteral stent is in appropriate position. No hydronephrosis is seen. 3. The right kidney appears mildly enlarged and edematous, and shows heterogeneous enhancement. 4. There are foci of diminished parenchymal enhancement within the right kidney. This could potentially represent pyelonephritis or phlegmonous change. No fluid collection is seen to indicate renal abscess. 5. Small pleural effusions with dependent consolidation. 6. Additional findings as above. Review of Systems Constitutional: as per Subjective / HPI Genitourinary: as per Subjective / HPI Physical Exam 2 Constitutional: well developed and well nourished; no acute distress Respiratory: normal respiratory effort and able to speak in complete sentences Musculoskeletal: Extremities: extremities normal to inspection Psychiatric: Orientation: alert and oriented x 3 Results & Data Vital Signs (Past 12 Hours) Vital Signs Temp Pulse Resp BP Pulse Ox O2 Del Method 03/16/24 07:25 36.6 C 83 16 148/82 H 95 Room Air 03/15/24 22:45 36.8 C PG Care Time/CCT Total # of Minutes Spent Total Time Spent with Patient: Total time spent is greater than 50% in coordination of care (as documented) at patient's floor/unit and/or counseling patient: Coding Level of Care Code 91508 SUB INP/OBS CARE 2/35MIN Diagnoses Pneumonia J18.9 Urinary tract infection N39.0 Sepsis A41.9 Right ureteral stone N20.1
[2024-03-16 08:22] VITALS: BP 141/86
[2024-03-16 08:23] LABS: Hematocrit (blood only) 29.5 % (37.0-47.0); Hemoglobin 9.7 g/dl (12.0-16.0); Mean Corpuscular Hemoglobin 27.2 pg (25.0-34.0); Mean Corpuscular Hgb Conc 32.9 g/dL (32.0-36.0); Mean Corpuscular Volume 82.6 fL (80.0-100.0); Mean Platelet Volume 10.1 fL (9.4-12.4); Platelet Count 318 K/uL (130-400); RDW Coefficient of Variation 14.8 % (11.5-14.5); RDW Standard Deviation 44.8 fL (36.4-46.3); Red Blood Count 3.57 M/uL (4.20-5.40); White Blood Count 11.69 K/ul (4.8-10.8)
[2024-03-16 08:35] LABS: BUN Creatinine Ratio 24.6 (10-20); C Reactive Protein 12.33 mg/dl (0-0.5); Calcium 8.6 mg/dl (8.6-10.3); Creatinine Clr Calc Pharmacy 92.4 ml/min; Est GFR (African American) 109.7 ml/min; Est GFR (Non-African American) 94.6 ml/min; Potassium 3.5 mmol/L (3.5-5.1)
[2024-03-16 08:49] LABS: Basophils # (auto) 0.05 K/uL (0.00-0.20); Basophils % (auto) 0.4 %; Eosinophils # (auto) 0.45 K/uL (0.00-0.50); Eosinophils % (auto) 3.8 %; Immature Granulocytes # (auto) 0.22 K/uL (0.01-0.20); Immature Granulocytes % (auto) 1.9 %; Lymphocytes # (auto) 2.53 K/uL (1.20-3.40); Lymphocytes % (auto) 21.6 %; Monocytes # (auto) 1.23 K/uL (0.11-0.59); Monocytes % (auto) 10.5 %; Neutrophils # (auto) 7.21 K/uL (1.40-6.50); Neutrophils % (auto) 61.8 %
--- NOTE | 2024-03-16 10:15 | Discharge Summary ---
Discharge Summary Date of Service March 16, 2024 Principal Dx & Hospital Course #1 = Principal Diagnosis (1) Sepsis: 58 y/o with history of nephrolithiasis who developed sepsis following urological procedure 03/09. Admission data including imaging with CT chest/abdomen/pelvis consistent with possible right sided pyelonephritis and possible bibasilar pneumonia. Treated for sepsis with cefepime, vancomycin, required large volume fluid resuscitation for hypotension but ultimately did not require pressors. Found to have pseudomonas bacteremia, also grew from urine. Sepsis with hypotension caused by Pseudomonas bacteremia of urinary source, sepsis resolved Right sided pyelonephritis, pseudomonas from urine culture, right sided ureteral stent. Possible bibasilar pneumonia based on CT, seems unlikely with lack of pulmonary symptoms Recieved cefepime, will be discharged on PO cipro BID. -follow up repeat blood culture, no growth - finalized -patient was having cycling fevers despite appropriate antibiotic treatment - repeat CTAP: no renal abscess - COVID negative urology following - flomax while stent is in place CRP and WBC are downtrending, patient has not had fevers in over 24 hours. Stable to discharge home today. has urology follow-up for stent removal. (2) Pneumonia: possible bilateral lower lobe pneumonia, potential for aspiration pneumonia/pneumonitis - continue antibiotics as above, paucity of pulmonary symptoms, seems unlikely - on room air and no cough Azithromycin was added while patient was inpatient with concerns for atypical coverage wound patient continued to have fevers. However recurrent fevers likely due to the pyelonephritis seen on repeat CT scan Day of discharge patient reported deep substernal pain on the left chest wall to my supervising physician, Dr. Luther. A chest CTA was ordered that showed no PE. However it also did not show any pneumonia, and was only showing atelectasis. Azithromycin was not continued at discharge. (3) Acute pulmonary edema: Dyspneic with crackles throughout on exam 03/11 following aggressive IV fluids for sepsis, CXR with pulmonary edema -resolving with diuresis has lasix IV x2 no crackles on exam, swelling has improved. no further diuresis required (4) Acute respiratory failure with hypoxia: related to sepsis and/or pneumonia as well as pulmonary edema - hypoxia resolved (5) Urinary tract infection: See sepsis above (6) Right ureteral stone: 03/09 Cystoscopy, Ureteronephroscopy, Basket Extraction of the Stone, Inseriton of Stent Catheter - Right(Right) - Gamaliel Pritchard MD (7) Sleep apnea: Hx RYLIE on CPAP Obesity with BMI 32 - continue CPAP, caution with opioids (8) Bacteremia due to Pseudomonas: (9) Pyelonephritis: Plan Hypokalemia - replaced IV, resolved Hypomagnesemia - replaced IV, resolved Hypophosphatemia - replaced IV, resolved GERD - continue proton pump inhibitor Hypertension - continue losartan Metformin, insulin resistance resume metformin at discharge dispo: Discharge to home today, outpatient urology follow-up arranged. updated at bedside 03/13 & 03/14, 03/15, 03/16 Notes For Next Care Provider Patient presented to ED after having a ureteral stent placed, was found to be septic with positive blood cultures from a Pseudomonas UTI. Infection had spread to pyelonephritis. Extended course of IV cefepime while inpatient while patient was still having cyclical fevers. However day of discharge patient has been fever free for over 24 hours and CRP is downtrending. Discharged on p.o. Cipro Medication Changes From Visit ciprofloxacin twice daily x 7 days Flomax daily while stent is in place Admission HPI Per Admitting Provider The patient is a 58-year-old female with a past medical history including sleep apnea, obesity, rib fractures, GERD, hypertension, hyperlipidemia, SNHL bilaterally, and rosacea. She underwent cystoscopy, ureteronephroscopy, basket extraction of the stone, and insertion of right stent catheter approximately 10:50 AM 03/09. She reports that her pain had improved initially postprocedure, however, as the day progressed, she became more painful, and developed a temperature to 102 F and nausea. She thus presents to the ED for assessment. She reports that this is her fifth kidney stone, and third stent in her lifetime. She also describes some generalized muscle aches and fatigue Discharge Exam General: NAD, VS as above, sitting up in bed, pleasant Resp: normal respiratory effort, diminished in the bases CV: RRR, no murmur, Abd: normal bowel sounds, non tender, soft Extremities: Moves all extremities, no edema Neuro: A&O x3, Skin: intact, no lesions noted Discharge Plan Discharge Items Patient Disposition: Home - Self-Care Reason For Visit: SEPSIS, UTI POST URETERAL STENT, ACUTE RESP FAILUR Discharge Diagnosis: Pylenopehritis Bathing: No limitations Driving/Machine Use: No limitations Weightbearing: Full weightbearing Non-emergency contact: Primary Care Provider and Urologist Call non-emergency contact if: you have any medication questions Follow-up/Referrals: Oseas Ford MD [Primary Care Provider] - 03/23/24 11:00 am (Follow up in 7-10 days ) Gamaliel Pritchard MD [Physician] - 03/21/24 8:40 am Diet: Regular Addtl Attending Provider Instructions: Mrs. Felix, You were hospitalized after being septic from a UTI with a stent in place. You have been treated with IV antibiotics and will continue on ciprofloxacin twice a day for 7 more days. Take the first dose tonight. You do not need any additional antibiotics for the pneumonia concerns. Continue to clean your CPAP as new supplies are delivered. Take the incentive spirometer home with you. If you have pain from the stent - take the oxybutynin you have at home, or Tylenol or ibuprofen. You may still have a few fevers from the kidney infection. If you have 2 fevers greater than 100 degrees in 24 hours, please call the urologist. Activity: You can do normal everyday activities as your body allows. Take rest breaks if you feel tired. Do not overexert. Stop activity if you have pain, shortness of breath or feel dizzy. Follow-up appointments: Make an appointment with your primary care physician within one week of discharge. A copy of this summary will be sent to them. Every time you see your primary care physician, or any other doctor, bring your medication list, and a list of questions. CONTACT YOUR PRIMARY CARE PROVIDER if you experience any of the following: Shortness of breath or difficulty breathing Fevers or chills Feeling tired with normal activity or experiencing dizziness or fainting Difficulty following your treatment plan, or difficulty taking medications CALL 911 OR GO TO THE EMERGENCY DEPARTMENT if you experience any of the following: Severe abdominal pain or nausea/vomiting Severe chest pain, or chest pain that radiates (moves) to your jaw or arm Sudden, severe shortness of breath or difficulty breathing Thank you for allowing us to participate in your care. Mary Rossi PA-C Addtl Coordinator Of Evaluation Provider Instructions: Please take all medications as prescribed and keep all follow-ups as scheduled. We will keep you on Flomax until stent removal on 03/21/24 Please call our office at [phone] with any questions, concerns or need to reschedule appointments for any reason. We are happy to assist you. While you have a ureteral stent in place: Some discomfort is normal. Certain movements may trigger pain or a feeling that you need to urinate. You may also feel mild soreness or pressure before or during urination. These symptoms should go away a few days after the stent is removed. Your urine may be slightly pink or red. This is due to bleeding caused by minor irritation from the stent. This may happen on and off while you have the stent, it is not harmful and is to be expected. Medication to help minimize discomfort or bladder spasms, or to prevent infection may be prescribed. Take this as directed. Drink plenty of fluids to help flush out your urinary tract. When to call [facility] at [phone]: Your urine contains heavy blood clots You are constantly leaking urine Fever of 101F or higher, chills, nausea, or vomiting Your pain is not relieved with medication The end of the stent comes out of your urethra Pending Studies at Discharge: No Stand-Alone Forms: [facility], Pain - Opioid Pain Management, Smoking Cessation Medications and DC Order Prescriptions: New ciprofloxacin HCl 500 mg tablet 500 mg PO BID Qty: 15 0RF Rx Instructions: First dose PM 03/16 tamsulosin 0.4 mg Capsule 0.4 mg PO QAM Qty: 10 0RF Continued ondansetron 4 mg tablet,disintegrating 4 mg PO Q8H PRN (Reason: nausea and vomiting) Qty: 9 0RF Rx Instructions: [facility] ER 02/24/24 omeprazole 40 mg capsule,delayed release(DR/EC) 40 mg PO BID Qty: 180 3RF metformin 500 mg tablet,ER cinda.retention 24 hr 500 mg PO TID oxycodone 5 mg tablet 5 mg PO Q6H PRN (Reason: Pain) losartan [Cozaar] 50 mg tablet 50 mg PO QAM Rx Instructions: replaces lisinopril oxybutynin chloride 5 mg tablet 5 mg PO Q6H PRN (Reason: bladder spasms) Qty: 30 0RF acetaminophen 500 mg Tablet 1,000 mg PO Q6H PRN (Reason: pain/fever) Discontinued sulfamethoxazole-trimethoprim [Bactrim DS] 800-160 mg tablet 1 tab PO ONCE 1 Days Qty: 1 0RF Discharge Orders: Discharge Order (Routine); Ordered 03/16/24 Ordered By: Mary Rossi Admission Data Admit Date/Time: 03/10/24 00:56 Attending Provider: Pipo Barba Admit Provider: Familia Tariq Primary Care Provider: Oseas Ford Other Providers: Familia Tariq; Brenden Burks; Riky Devlin; Meliton Shepherd; Elizabeth Lombardo; Macho Be; Tatiana Dai; Jennifer Ha; Gamaliel Pritchard; Oneyda Lutz; Noe Ayala; Jie Paniagua; Arnold Maloney Other Interventions: Discharge Summary Assessment (RN) Last Done: 03/16/24 10:39 Hospital Stay Data Consultations 03/10/24 00:04 ED Decision to Admit Stat 03/10/24 07:17 Consult Urology Routine Diagnostic Imagining Performed Chest X-Ray 03/09/24 22:46 SINGLE VIEW CHEST CLINICAL HISTORY: Fever. FINDINGS: An AP, portable, upright chest radiograph is compared to study dated 12/28/2023. The cardiomediastinal silhouette is top normal for projection. Airspace opacities RCA both lung bases. No large pleural effusion or pneumothorax is identified. The skeletal structures are osteopenic. There are chronic/healed right-sided rib fracture. IMPRESSION: Dependent airspace opacities likely represent atelectasis. Correlate clinically for evidence of a superimposed infectious/inflammatory pneumonitis. ACT 112: Negative or not required by law. Electronically signed by: Haim Roberson M.D. 03/10/2024 7:[address] 03/10/24 00:43 Exam(s): CT CHEST Without Contrast EXAM: CT Chest Without Intravenous Contrast CLINICAL HISTORY: Reason for exam: acute resp failure /hypoxia, post ureteral stent. TECHNIQUE: Axial computed tomography images of the chest without intravenous contrast. CTDI is 28.03 mGy and DLP is 2390.46 mGy-cm. Automated exposure control was utilized for the study. A dose lowering technique was utilized adhering to the principles of ALARA. COMPARISON: No relevant prior studies available. FINDINGS: Lungs: Airspace consolidation at the lung bases, concerning for pneumonia. Aspiration not excluded. No mass. Pleural space: Unremarkable. No pneumothorax. No significant effusion. Heart: Unremarkable. No cardiomegaly. No significant pericardial effusion. No significant coronary artery calcifications. Mediastinum: Moderate hiatal hernia. Bones/joints: Unremarkable. No acute fracture. No dislocation. Soft tissues: Unremarkable. Vasculature: Unremarkable. No thoracic aortic aneurysm. Lymph nodes: Unremarkable. No enlarged lymph nodes. IMPRESSION: Airspace consolidation at the lung bases, concerning for pneumonia. Aspiration not excluded. Electronically signed by: Francisco Gordillo MD 03/10/24 03:04 AM Abdomen/Pelvis CT 03/10/24 00:46 Exam(s): CT ABDOMEN + PELVIS Without Contrast EXAM: CT Abdomen and Pelvis Without Intravenous Contrast CLINICAL HISTORY: Reason for exam: sepsis s/p right ureteral stent. TECHNIQUE: Axial computed tomography images of the abdomen and pelvis without intravenous contrast. CTDI is 28.03 mGy and DLP is 2390.46 mGy-cm. Automated exposure control was utilized for the study. A dose lowering technique was utilized adhering to the principles of ALARA. COMPARISON: No relevant prior studies available. FINDINGS: Lung bases: Dependent airspace consolidations, concerning for pneumonia. Mediastinum: Moderate hiatal hernia. ABDOMEN: Liver: Unremarkable. Gallbladder and bile ducts: Unremarkable. No calcified stones. No ductal dilation. Pancreas: Unremarkable. No ductal dilation. Spleen: Unremarkable. No splenomegaly. Adrenals: Unremarkable. No mass. Kidneys and ureters: RIGHT and LEFT ureteral stent, terminates in the urinary bladder. Mild hydronephrosis of the RIGHT kidney. Right-sided perinephric stranding. Evaluation limited without contrast. Stomach and bowel: Diverticulosis, without acute diverticulitis. No small bowel obstruction. No free intraperitoneal air. PELVIS: Appendix: No findings to suggest acute appendicitis. Bladder: Unremarkable. No stones. Reproductive: Hysterectomy. ABDOMEN and PELVIS: Intraperitoneal space: Unremarkable. No free air. No significant fluid collection. Bones/joints: Degenerative changes of the spine. No acute fracture. No dislocation. Soft tissues: Unremarkable. Vasculature: Atherosclerotic changes of the aorta. No abdominal aortic aneurysm. Lymph nodes: Unremarkable. No enlarged lymph nodes. IMPRESSION: 1. Dependent airspace consolidations, concerning for pneumonia. 2. RIGHT and LEFT ureteral stent, terminates in the urinary bladder. Mild hydronephrosis of the RIGHT kidney. Right-sided perinephric stranding. Evaluation limited without contrast. 3. Moderate hiatal hernia. 4. Hysterectomy. 5. Diverticulosis, without acute diverticulitis. No small bowel obstruction. No free intraperitoneal air. Electronically signed by: Francisco Gordillo MD 03/10/24 03:49 AM Chest X-Ray 03/10/24 11:05 SINGLE VIEW CHEST CLINICAL HISTORY: PICC placement FINDINGS: An AP, portable, upright chest radiograph is compared to study dated 03/09/2024 and correlated with chest CT dated 03/10/2024. A right PICC line has been placed. The tip of the catheter projects over the right atrium. The heart is enlarged. The pulmonary vasculature is noncongested. Chronic interstitial thickening is similar to previous. Dependent airspace opacities are again noted. No large pleural effusion or pneumothorax is seen. The skeletal structures are osteopenic. The bony thorax is grossly intact. IMPRESSION: 1. A right-sided PICC line has been placed as above. 2. Cardiomegaly without radiographic evidence of congestive failure. 3. There are persistent bibasilar airspace opacities. Correlate clinically. ACT 112: Negative or not required by law. Electronically signed by: Haim Roberson M.D. 03/10/2024 11:31 AM Chest X-Ray 03/10/24 12:01 XR chest 1V portable HISTORY: PICC tip placement after pulling line back COMPARISON: Chest 03/10/2024. FINDINGS: No pneumothorax. Patchy bibasilar densities persist. Mild pulmonary vascular congestion has improved. The heart remains enlarged. There is an old right rib fracture. There are low lung volumes. The right PICC has been pulled back and now terminates within the SVC. IMPRESSION: 1. The right PICC terminates in the SVC. 2. Patchy bibasilar densities persist and favor a pneumonia. ACT 112: Negative or not required by law. Electronically signed by: Adin Cassidy M.D. 03/10/2024 12:25 PM Chest X-Ray 03/11/24 07:47 SINGLE VIEW CHEST CLINICAL HISTORY: Hypoxia FINDINGS: An AP, portable, upright chest radiograph is compared to study dated 03/10/2024 and correlated with chest CT dated 03/10/2024. A right PICC line is unchanged in position. The heart is enlarged. There is pulmonary vascular congestion. Chronic interstitial thickening is similar to previous. There are small pleural effusions with dependent consolidation. No pneumothorax is seen. The skeletal structures are osteopenic. There are chronic/healed right-sided rib fractures. IMPRESSION: 1. Cardiomegaly with mild pulmonary vascular congestion. 2. Small pleural effusions with bibasilar consolidation. ACT 112: Negative or not required by law. Electronically signed by: Haim Roberson M.D. 03/11/2024 8:31 AM Abdomen/Pelvis CT 03/14/24 16:01 CT SCAN OF THE ABDOMEN AND PELVIS WITH IV CONTRAST CLINICAL HISTORY: Fever. COMPARISON STUDY: Abdominal CT dated 03/10/2024 and 02/18/2018. TECHNIQUE: Following the IV administration of 94 cc of Optiray 320, CT scan of the abdomen and pelvis is performed from the lung bases to the proximal femora. Images are reviewed in the axial, sagittal, and coronal planes. IV contrast was administered without complication. A dose lowering technique was utilized adhering to the principles of ALARA. FINDINGS: Lung bases: The heart is normal in size noting a small pericardial effusion. There are small pleural effusions with dependent consolidation. A small hiatal hernia is noted. Liver: The contrast-enhanced liver is normal in size, contour, and attenuation. There is no intrahepatic biliary ductal dilatation. The hepatic veins and portal veins are patent. A 10 mm right lobe cyst is unchanged. Gallbladder: Unremarkable. Spleen: Normal in size and attenuation. Pancreas: Unremarkable. Adrenal glands: Unremarkable. Kidneys: The right kidney appears mildly enlarged and edematous. A right ureteral stent is in appropriate position. There is no hydronephrosis no calcifications are identified in the right ureter along the course of the stent. Right renal enhancement is heterogeneous. The left kidney enhances normally. There are indeterminate foci of hypoenhancement within the right renal cortex seen on images #126, #159, and #179. These measure up to 2.4 cm and may represent pyelonephritis or foci of phlegmonous change. No oral contrast/renal fluid collection is seen. Abdominal vasculature: The abdominal aorta is normal in course and caliber noting scattered foci of atherosclerotic calcification. Bowel: There is no bowel obstruction. The appendix is well-visualized and normal. Peritoneum: There is no intraperitoneal free air or abdominal ascites. There is a fat-containing umbilical hernia. Lymphadenopathy: None. Pelvic viscera: The bladder is partially distended and appears mildly thick- walled. There is a nonspecific focus of intraluminal gas. The bladder contains the distal end of a right ureteral stent. The uterus is surgically absent. No adnexal lesion is seen. Skeletal structures: The skeletal structures are osteopenic. Mild degenerative change is noted in the spine. No lytic or blastic lesions are seen. IMPRESSION: 1. The bladder is partially decompressed and appears thick walled. There is nonspecific intraluminal gas which may be related to instrumentation, and the bladder contains the distal end of a ureteral stent. Correlate with clinical findings and urinalysis. 2. The right ureteral stent is in appropriate position. No hydronephrosis is seen. 3. The right kidney appears mildly enlarged and edematous, and shows heterogeneous enhancement. 4. There are foci of diminished parenchymal enhancement within the right kidney. This could potentially represent pyelonephritis or phlegmonous change. No fluid collection is seen to indicate renal abscess. 5. Small pleural effusions with dependent consolidation. 6. Additional findings as above. ACT 112: Negative or not required by law. Electronically signed by: Haim Roberson M.D. 03/14/2024 5:22 PM Chest CTA 03/16/24 11:21 CT ANGIOGRAM OF THE CHEST CLINICAL HISTORY: Left-sided pleuritic chest pain. COMPARISON STUDY: Chest x-ray dated 03/11/2024. Chest CT dated 03/10/2024. TECHNIQUE: Following the IV administration of 112 cc of Optiray 320, CT angiogram of the chest was performed from the upper abdomen to the thoracic inlet utilizing the pulmonary embolus protocol. Images are reviewed in the axial, sagittal, and coronal planes. 3-D MIPS images are created and assessed. IV contrast was administered without complication. A dose lowering technique was utilized adhering to the principles of ALARA. CT DOSE: 754.4 mGy.cm FINDINGS: Thyroid: Imaged portions of the thyroid gland are normal in size and attenuation. Thoracic aorta: The thoracic aorta is normal in caliber and demonstrates standard 3-vessel arch anatomy. No dissection is seen. Pulmonary vasculature: The pulmonary trunk is dilated, measuring 3.4 cm in diameter. This suggests pulmonary artery hypertension. There are no filling defects identified in main, lobar, or segmental pulmonary branches to suggest p ulmonary embolus. Heart: The heart is enlarged noting a small pericardial effusion. Lungs and pleural spaces: Evaluation of the lung parenchyma is modestly degraded by motion artifact. The trachea and central airways are clear. There are small pleural effusions with dependent consolidation. There are scattered calcified granulomas. Mediastinum: There is no mediastinal lymphadenopathy. Cecile: Clear. Axillae: There is no axillary lymphadenopathy. Upper abdomen: There is a moderate hiatal hernia. An 11 mm right lobe cyst is unchanged. The liver appears enlarged. Skeletal structures: No lytic or blastic bony lesions are seen. IMPRESSION: 1. There is no evidence of pulmonary embolus in the main, lobar, or segmental pulmonary arteries. 2. Cardiomegaly with evidence of pulmonary artery hypertension. 3. Small pleural effusions with bibasilar consolidation. This likely represents atelectasis and clinical correlation will be required. 4. Moderate hiatal hernia. 5. Additional findings as above. ACT 112: Negative or not required by law. Electronically signed by: Haim Roberson M.D. 03/16/2024 1:31 PM Pending Results Patient Have Any Pending Studies at Discharge: No Discharge Instructions Given to Patient (Per Discharging Provider) Mrs. Felix, You were hospitalized after being septic from a UTI with a stent in place. You have been treated with IV antibiotics and will continue on ciprofloxacin twice a day for 7 more days. Take the first dose tonight. You do not need any additional antibiotics for the pneumonia concerns. Continue to clean your CPAP as new supplies are delivered. Take the incentive spirometer home with you. If you have pain from the stent - take the oxybutynin you have at home, or Tylenol or ibuprofen. You may still have a few fevers from the kidney infection. If you have 2 fevers greater than 100 degrees in 24 hours, please call the urologist. Activity: You can do normal everyday activities as your body allows. Take rest breaks if you feel tired. Do not overexert. Stop activity if you have pain, shortness of breath or feel dizzy. Follow-up appointments: Make an appointment with your primary care physician within one week of discharge. A copy of this summary will be sent to them. Every time you see your primary care physician, or any other doctor, bring your medication list, and a list of questions. CONTACT YOUR PRIMARY CARE PROVIDER if you experience any of the following: Shortness of breath or difficulty breathing Fevers or chills Feeling tired with normal activity or experiencing dizziness or fainting Difficulty following your treatment plan, or difficulty taking medications CALL 911 OR GO TO THE EMERGENCY DEPARTMENT if you experience any of the following: Severe abdominal pain or nausea/vomiting Severe chest pain, or chest pain that radiates (moves) to your jaw or arm Sudden, severe shortness of breath or difficulty breathing Thank you for allowing us to participate in your care. Mary Rossi PA-C Supervising Physician Co-Signing Physician Notes Attending Attestation and Discharge Note: Pt seen/examined, chart reviewed, discharge care plan d/w DANETTE Rossi. I agree w/ the lin components of her documentation with the following 2 additions - * bacteremia due to pseudomonas * right-sided pyelonephritis 58yo female with history of HTN and multiple kidney stones who had undergone cystoscopy, ureteronephroscopy, basket extraction of a right-sided kidney stone, and insertion of right ureteral stent on 03/09/24 as outpatient. She presented late in the day on 03/09 to the [facility] ER with c/o fever and worsening right-sided flank pain. CT a/p with right-sided hydronephrosis & perinephric stranding along with b/l basilar infiltrates on lung cuts. She was started on broad-spectrum IV antibiotics to treat for UTI in the setting of her recent urological procedure as well as possible b/l basilar pneumonia. Blood cx's and urine cx ultimately resulted + for pseudomonas. She received IV cefepime while here and then transitioned to PO cipro at discharge. Last documented fever was 03/14/24. CTA chest on day of discharge - obtained due to left-sided pleuritic type pain - showed NO PEs. Discharge exam: gen - looks tired but nontoxic, pleasant mouth - MMM neck - no JVD heart - RRR, s1 s2, no murmur lungs - CTA b/l abd - soft NT ND BS+; no flank tenderness to palpation chest - no reproducible chest wall tenderness to palpation ext - no edema, pulses 2+ b/l Pipo Barba MD Total Time Total Time Spent Total Time Spent (In Minutes): Time spent day of discharge 40 minutes including direct patient care, medication reconciliation, documentation, review of labs and images, and coordination of care. Coding Level of Care Code 50182 INP/OBS DISCH >30 MIN Diagnoses Sepsis A41.9 Pneumonia J18.9 Acute pulmonary edema J81.0 Acute respiratory failure with hypoxia J96.01 Urinary tract infection N39.0 Right ureteral stone N20.1 Sleep apnea G47.30 Bacteremia due to Pseudomonas R78.81; B96.5 Pyelonephritis N12
[2024-03-16] MEDS: OPTIRAY 320 125ml IV ONE (12:16)
--- NOTE | 2024-03-16 13:32 | CT Scan Report ---
CT ANGIOGRAM OF THE CHEST CLINICAL HISTORY: Left-sided pleuritic chest pain. COMPARISON STUDY: Chest x-ray dated 03/11/2024. Chest CT dated 03/10/2024. TECHNIQUE: Following the IV administration of 112 cc of Optiray 320, CT angiogram of the chest was pe rformed from the upper abdomen to the thoracic inlet utilizing the pulmonary embolus protocol. Images are reviewed in the axial, sagittal, and coronal planes. 3-D MIPS images are created and assessed. I V contrast was administered without complication. A dose lowering technique was utilized adhering to the principles of ALARA. CT DOSE: 754.4 mGy.cm FINDINGS: Thyroid: Imaged portions of the thyroid gland are normal in size and attenuation. Thoracic aorta: The thoracic aorta is normal in caliber and demonstrates standard 3-vessel arch anato my. No dissection is seen. Pulmonary vasculature: The pulmonary trunk is dilated, measuring 3.4 cm in diameter. This suggests pu lmonary artery hypertension. There are no filling defects identified in main, lobar, or segmental pul monary branches to suggest pulmonary embolus. Heart: The heart is enlarged noting a small pericardial effusion. Lungs and pleural spaces: Evaluation of the lung parenchyma is modestly degraded by motion artifact. The trachea and central airways are clear. There are small pleural effusions with dependent consolida tion. There are scattered calcified granulomas. Mediastinum: There is no mediastinal lymphadenopathy. Cecile: Clear. Axillae: There is no axillary lymphadenopathy. Upper abdomen: There is a moderate hiatal hernia. An 11 mm right lobe cyst is unchanged. The liver ap pears enlarged. Skeletal structures: No lytic or blastic bony lesions are seen. IMPRESSION: 1. There is no evidence of pulmonary embolus in the main, lobar, or segmental pulmonary arteries. 2. Cardiomegaly with evidence of pulmonary artery hypertension. 3. Small pleural effusions with bibasilar consolidation. This likely represents atelectasis and clini samm correlation will be required. 4. Moderate hiatal hernia. 5. Additional findings as above. ACT 112: Negative or not required by law. Electronically signed by: Haim Roberson M.D. 03/16/2024 1:31 PM
== END 2024-03-16 14:06 | disposition home or self-care (01) | DRG 871 ==
LOC: ED 22:27 → SUATTDRO 03-10 00:56 → EDINP 03-10 00:56 → 4W 03-10 16:41 → 3W 03-12 13:04
DX: E83.42 Hypomagnesemia; Z79.899 Other long term (current) drug therapy; E66.9 Obesity, unspecified; Z86.711 Personal history of pulmonary embolism; E83.39 Other disorders of phosphorus metabolism; Z68.32 Body mass index [BMI] 32.0-32.9, adult; R65.20 Severe sepsis without septic shock; Z79.84 Long term (current) use of oral hypoglycemic drugs; J96.01 Acute respiratory failure with hypoxia; Z91.040 Latex allergy status; T83.592A Infection and inflammatory reaction due to indwelling ureteral stent, initial encounter; E78.5 Hyperlipidemia, unspecified; T81.44XA Sepsis following a procedure, initial encounter; J69.0 Pneumonitis due to inhalation of food and vomit; I10 Essential (primary) hypertension; G47.33 Obstructive sleep apnea (adult) (pediatric); J18.1 Lobar pneumonia, unspecified organism; E87.6 Hypokalemia; E88.819 Insulin resistance, unspecified; Z86.16 Personal history of COVID-19; N13.6 Pyonephrosis; A41.52 Sepsis due to Pseudomonas; J81.0 Acute pulmonary edema; Z11.52 Encounter for screening for COVID-19; K21.9 Gastro-esophageal reflux disease without esophagitis